=== PATIENT | female | born 1940 | race Caucasian/White ===

== ENCOUNTER → 2018-03-25 08:26 | Outpatient (CLI) | payer MEDICARE, OTHER, SELFPAY ==
[2018-03-25 10:35] LABS: Alanine Aminotransferase 25 IU/L (9-52); Aspartate Aminotransferase 22 IU/L (14-36); Cholesterol 149 mg/dL (140-199); HDL Cholesterol 59 mg/dL (40-60); LDL Cholesterol Calculated 69 mg/dL (<100); Triglycerides 104 mg/dL (35-150)
[2018-03-25 11:50] LABS: Free T4, Direct Thyroxine 1.05 ng/dL (0.78-2.19)
== END ==
PROVIDERS: PCP Internal Medicine; Visit Provider Internal Medicine
DX: E78.2 Mixed hyperlipidemia (principal); E03.9 Hypothyroidism, unspecified
CPT/HCPCS: 36415; 80061; 84439; 84443; 84450; 84460

== ENCOUNTER → 2018-05-11 12:46 | Outpatient (CLI) | payer MEDICARE, OTHER, SELFPAY ==
[2018-05-11 13:17] LABS: Add Manual Diff / Slide Review NO; Basophils Percent Auto 0.9 % (0-2); Eosinophils Percent Auto 6.1 % (2-4); Hematocrit 43.1 % (36-46); Hemoglobin 14.1 g/dL (12.0-16.0); Lymphocytes Percent Auto 35.9 % (25-40); Mean Corpuscular HGB Conc 32.8 % (30-36); Mean Corpuscular Hemoglobin 29.1 PG (26-34); Mean Corpuscular Volume 88.7 fL (80-100); Monocytes Percent Auto 8.5 % (3-14); Neutrophils Absolute Auto 3800 /uL (3000-5900); Neutrophils Percent Auto 48.6 % (50-75); Platelet Count 358 X10^3/uL (150-400); Red Blood Cell Count 4.86 X10^6/uL (4.0-5.2); Red Cell Distribution Width 13.4 % (11.6-14.8); White Blood Cell Count 7.8 X10^3/uL (4.5-11.0)
[2018-05-11 14:21] LABS: Alanine Aminotransferase 17 IU/L (9-52); Albumin 3.9 g/dL (3.5-5.0); Albumin Globulin Ratio 1.6 (1.0-2.8); Alkaline Phosphatase 53 U/L (38-126); Aspartate Aminotransferase 16 IU/L (14-36); Bilirubin Total 0.6 mg/dL (0.2-1.3); Blood Urea Nitrogen 16 mg/dL (7-17); Calcium 9.8 mg/dL (8.4-10.2); Carbon Dioxide 33 mmol/L (22-32); Chloride 97 mmol/L (98-107); Estimated Glomerular Filt Rate > 60.0 mL/min (>60); Globulin 2.5 g/dL (1.7-4.1); Glucose 108 mg/dL (80-110); HEMOLYSIS < 15 (0-50); Lipase 140 U/L (23-300); Potassium 4.5 mmol/L (3.4-5.1); Sodium 141 mmol/L (137-145); Total Protein 6.4 g/dL (6.3-8.2)
== END ==
PROVIDERS: PCP Internal Medicine; Visit Provider Internal Medicine
DX: R10.9 Unspecified abdominal pain (principal)
CPT/HCPCS: 36415; 80053; 83690; 85025

== ENCOUNTER → 2018-05-12 06:54 | Outpatient (CLI) | payer MEDICARE, OTHER, SELFPAY ==
--- NOTE | 2018-05-12 | DI.US.S_ITS ---
PROCEDURE: US ABDOMEN COMPLETE INDICATIONS: ABDOMINAL DISTENTION TECHNIQUE: Real-time scanning was performed of the abdominal and retroperitoneal organs, with image documentation. COMPARISON: None. FINDINGS: Liver: Liver is normal in size and homogeneous in echotexture. Gallbladder: The gallbladder appears normal. Biliary ducts: Intrahepatic bile ducts are non-dilated. Extrahepatic bile duct caliber measures 5.2 mm. Normal is 6-7 mm or less in diameter, or 10 mm or less post-cholecystectomy. Pancreas: Visualized portions of the pancreas are sonographically normal. Spleen: Not seen due to bowel gas Kidneys: Kidneys are normal in size and echotexture. Right kidney measures 11.7 cm long; left kidney measures 10.7 cm long. No hydronephrosis or nephrolithiasis. There is any echogenic solid structure measuring 8 x 9 mm at the inferior third of the right kidney cortex, likely an angiomyolipoma. Aorta: Visualized aorta is normal in caliber at less than 3 cm. Iliacs: Proximal common iliac arteries are normal in caliber at less than 2.5 cm. IVC: Intrahepatic inferior vena cava is patent. Miscellaneous: No free abdominal fluid. IMPRESSION: No source of abdominal discomfort and distention is. Nonvisualization of the spleen due to bowel gas. Incidental note of what appears to be a angiomyolipoma at the inferior cortex of the right kidney. If CT is obtained for current symptoms that area could be further assessed for presence of angiomyolipoma more accurately at that time. Dictated by: Sandip Hirsch M.D. on 05/12/2018 at 8:10 Approved by: Sandip Hirsch M.D. on 05/12/2018 at 8:12
== END ==
PROVIDERS: PCP Internal Medicine; Visit Provider Student in an Organized Health Care Education/Training Program
DX: R14.0 Abdominal distension (gaseous) (principal)
CPT/HCPCS: 76700

== ENCOUNTER → 2018-09-25 07:37 | Outpatient (CLI) | payer MEDICARE, OTHER, SELFPAY ==
[2018-09-25 08:49] LABS: Hemoglobin A1C% w Est Avg Glu 5.8 % (4.0-6.0)
[2018-09-25 08:55] LABS: Alanine Aminotransferase 26 IU/L (9-52); Aspartate Aminotransferase 21 IU/L (14-36); BUN Creatinine Ratio 28.3 (6-22); Blood Urea Nitrogen 17 mg/dL (7-17); Calcium 8.5 mg/dL (8.4-10.2); Carbon Dioxide 30 mmol/L (22-32); Chloride 102 mmol/L (98-107); Cholesterol 156 mg/dL (140-199); Estimated Glomerular Filt Rate > 60.0 mL/min (>60); Glucose 94 mg/dL (80-110); HDL Cholesterol 60 mg/dL (40-60); HEMOLYSIS < 15 (0-50); LDL Cholesterol Calculated 72 mg/dL (<100); Potassium 3.8 mmol/L (3.4-5.1); Sodium 142 mmol/L (137-145); Triglycerides 119 mg/dL (35-150)
[2018-09-25 09:54] LABS: Free T4, Direct Thyroxine 0.98 ng/dL (0.78-2.19)
== END ==
PROVIDERS: PCP Internal Medicine; Visit Provider Internal Medicine
DX: I10 Essential (primary) hypertension (principal); E03.9 Hypothyroidism, unspecified; E78.5 Hyperlipidemia, unspecified; E11.9 Type 2 diabetes mellitus without complications
CPT/HCPCS: 36415; 80048; 80061; 83036; 84439; 84443; 84450; 84460

== ENCOUNTER 2018-12-02 10:00 | Day surgery (SDC) | payer MEDICARE, OTHER, SELFPAY ==
--- NOTE | 2018-12-02 | PATH_ITS ---
[facility] Accession Number: [id number] . 01 Material submitted: . PART A: ASCENDING COLON POLYP PART B: ASCENDING COLON POLYP #2 PART C: TRANSVERSE POLYPS . 02 Diagnosis: A. Ascending Colon Polyp: Sessile serrated adenoma. . B. Ascending Colon Polyp #2: Multiple portions of sessile serrated adenoma. . C. Transverse Colon, Polyps, Biopsies: Portion of tubular adenoma x1; negative for high-grade dysplasia. Portion of sessile serrated adenoma x1. MRV/12/04/2018 . 02 Comment: . . 02 Electronically signed: . Joya Benitez MD, Pathologist NPI- [id number] . 01 Gross description: . Received three formalin-filled containers, each labeled with the patient's name: . A. In a container labeled ascending colon, are multiple less than 0.1 cm to 0.6 cm portions of tissue, which are filtered, wrapped, and entirely submitted in cassette A. B. In a container labeled ascending colon polyp #2, are multiple less than 0.1 cm to 0.5 cm portions of tissue and/or debris, which are filtered, wrapped, and entirely submitted in cassette B. C. In a container labeled transverse polyp, are two 0.4-0.5 cm portions of tissue, entirely submitted in cassette C. ([id number]) /FRR . 02 Pathologist provided ICD-10: K63.5 . 02 CPT . 821785, 353811, 681944 Performed at: 01 [facility] [address], [place], [place] [id number] MD Bakari Barrera MD Phone: [phone] Performed at: [facility] [address] [place] [id number] MD Karley Kathleen MD Phone: [phone]
--- NOTE | 2018-12-02 09:42 | P.HP_ITS ---
History of Present Illness Date Patient Seen: 12/02/18 Chief complaint: colonoscopy [id number] Narrative: 78-year-old female who is here for colon cancer screening. Prior colonoscopy done over 10 years ago with no evidence of polyps. There is a family history of colon polyps in her mother Patient History Medical History Hypertension (Acute) Seasonal allergies (Acute) Surgical History History of tonsillectomy and adenoidectomy (Acute) Social History household members: none Smoking Status: Never smoker alcohol intake: never substance use type: does not use additional social history: Social history and family history are otherwise noncontributory Family & Social History Tobacco & Substance use: Smoking Status Never smoker alcohol intake never Substance Use Type does not use Meds Allergies Allergy/AdvReac Type Severity Reaction Status Date / Time cat dander [CAT DANDER] Allergy Unknown Verified 03/06/18 21:54 pepper (genus Capsicum) Allergy Unknown Verified 03/06/18 21:54 [PEPPER] Exam Narrative Exam Narrative: General: Patient is overweight, not in apparent distress Cardiovascular: Regular rate and rhythm, no murmurs, rubs, or gallops; no evidence of edema; no palpable abdominal aortic aneurysm Gastrointestinal: Normoactive bowel sounds, soft, nontender, nondistended, no rebound tenderness, no hepatosplenomegaly, no evidence of hernia Assessment & Plan Plan: Assessment/Plan Narrative: 78-year-old female with a family history of colon polyps here for colon cancer screening Regarding the procedure(s), the risks and potential complications, benefits, and alternatives (including not doing the procedure) were discussed with the patient. The risks include but are not limited to bleeding, splenic injury, infection, perforation which may require surgical intervention, missed lesions, and adverse reactions to sedative medicines. After a question and answer period , the patient agreed to proceed with the procedure(s) and gives informed consent.
[2018-12-02 10:24] VITALS: BP 156/103; PULSE 61; RESP 15; TEMP 37; O2SAT 98; BMI 29.2
[2018-12-02] MEDS: SODIUM CHLORIDE 0.9% 1,000 ML 100 ML IV (11:02)
--- NOTE | 2018-12-02 11:03 | PM.OP.ENDO ---
Operative Date/Time/Diagnoses Date of procedure: 12/02/18 Procedure Notes Procedure in detail: Surgeon: Mayur Chang MD Procedure: Colonoscopy with polypectomy Preoperative diagnosis: Colon cancer screening, family history colon polyps Postoperative diagnosis: 2 ascending colon polyps status post piecemeal polypectomy; 2 transverse colon polyp status post polypectomy; grade 2 internal hemorrhoids Medications: Conscious sedation using 4 mg IV of Midazolam and 150mcg IV of Fentanyl Preanesthesia Assessment An H and P was performed/updated and the Px?s ASA class is 2. The procedure was discussed in detail with the patient. The potential risks and complications including infection, bleeding, missed lesions, perforation, need for surgery in case of perforation, prolonged hospital stay, and were explained. A brief question and answer period was allotted and once all questions were answered, informed consent was obtained. The patient was brought back to the procedure room and placed on standard monitoring. The patient?s vital signs were monitored continuously throughout the entire procedure. Prior to starting, a timeout was performed to confirm the patient?s identity, allergies, medications, and procedure. Procedure in detail The patient was placed in left lateral decubitus position and once adequate sedation was obtained a JOSE was performed. The digital rectal examination did not reveal any palpable lesions. The tip of the colonoscope was placed in the anal canal and advanced without difficulty all the way to the cecum which was identified by the appendiceal orifice and the ileocecal valve. Careful examination of all maya of the colon was performed with irrigation of any residual stool. In the ascending colon there was note of a 18 mm sessile polyp. Unfortunately the polyp was unable to be removed in 1 single piece, due to the tissue unable to be captured by the snare. Polypectomy was performed in a piecemeal fashion using saline injection, snare, and biopsy forceps. Unfortunately the polyp was unable to be removed in 1 single piece using a snare. Resection and retrieval was complete with minimal bleeding In the ascending colon there was note of a 2nd 16 mm sessile polyp. Unfortunately the polyp was again unable to be removed in 1 single piece, due to the tissue unable to be captured by the snare. Polypectomy was performed in a piecemeal fashion using saline injection, snare, and biopsy forceps. Unfortunately the polyp was unable to be removed in 1 single piece using a snare. Resection and retrieval was complete with minimal bleeding In the transverse colon there were 2 sessile polyps measuring 5 and 6 mm respectively. Polypectomy was performed by means of cold snare. Resection and retrieval were complete with minimal red bleeding Retroflexion was performed in the rectum which revealed grade 2 internal hemorrhoids The patient tolerated the procedure well and will be brought back to the recovery area to be discharged once criteria are met. The prep was judged to be good and adequate to identify polyps less than 5 mm. The withdrawal time was 43 min. The total physician intraservice time was 52 min. Complications There were no complications and estimated blood loss was minimal. Recommendations: Resume previous diet No ASA or NSAIDs for 2 weeks due to polypectomies Continue outPx medications Follow up pathology results Repeat colonoscopy in 3 months to reevaluate polypectomy site to ensure complete removal Please contact our office if you have problems with her hemorrhoids as we can evaluate you for possible hemorrhoid banding. An emergency contact number was given to the patient for any complications related to the procedure
[2018-12-02] MEDS: MIDAZOLAM 5 MG/5 ML VIAL IV (11:58)
[2018-12-02] MEDS: fentaNYL 250 MCG/5 ML INJ IV (11:58)
[2018-12-02 12:01] VITALS: BP 157/86; PULSE 63; RESP 18; TEMP 37.1; O2SAT 95
--- NOTE | 2018-12-02 12:05 | PM.DS.1 ---
History of Present Illness Chief complaint: colonoscopy [phone] [phone] Narrative: 78-year-old female who is here for colon cancer screening. Prior colonoscopy done over 10 years ago with no evidence of polyps. There is a family history of colon polyps in her mother Discharge Providers Primary care physician: Adriana Singh MD Discharge provider: Mayur Chang MD Discharge Date: 12/02/18 Exam Vital Signs (past 8 hours): - 12/02/18 10:24 12/02/18 12:01 Temperature 98.6 F 98.8 F Pulse Rate 61 63 Respiratory Rate 15 18 Blood Pressure 156/103 H 157/86 H Pulse Oximetry 98 95 Oxygen Delivery Method Room Air Narrative Exam Narrative: General: Patient is overweight, not in apparent distress Cardiovascular: Regular rate and rhythm, no murmurs, rubs, or gallops; no evidence of edema; no palpable abdominal aortic aneurysm Gastrointestinal: Normoactive bowel sounds, soft, nontender, nondistended, no rebound tenderness, no hepatosplenomegaly, no evidence of hernia Discharge Plan Discharge Plan Patient Disposition: Home Discharge Med Rec/Prescriptions Discharge Orders: Discharge (Order); Ordered 12/02/18 Ordered By: Mayur Chang Provider Discharge Instructions Diet: Diet as Tolerated Visit Report/Discharge Packet Stand Alone Forms: Colonoscopy Result: [facility], Surgery Discharge Discharge Data Primary Care Provider: Adriana Singh Attending Provider: Mayur Chang
[2018-12-02 12:10] VITALS: BP 142/82; PULSE 63; RESP 18; O2SAT 94
== END 2018-12-02 12:23 | disposition home or self-care (01) ==
PROVIDERS: PCP Internal Medicine; Visit Provider Internal Medicine Gastroenterology
PROC: 0DJD8ZZ Inspection of Lower Intestinal Tract, Via Natural or Artificial Opening Endoscopic (ICD-10-PCS; CPT 45378; principal; 2018-12-02 11:30)
DX: Z12.11 Encounter for screening for malignant neoplasm of colon (principal); Z80.0 Family history of malignant neoplasm of digestive organs; K64.1 Second degree hemorrhoids; K63.5 Polyp of colon
CPT/HCPCS: 45385; 88305; J2250; J3010

== ENCOUNTER → 2019-02-05 07:53 | Outpatient (CLI) | payer MEDICARE, OTHER, SELFPAY ==
--- NOTE | 2019-02-05 | DI.MG.S_ITS ---
BILATERAL DIGITAL SCREENING MAMMOGRAM 3D/2D WITH CAD: 02/05/2019 CLINICAL: Routine screening. Comparison is made to exams dated: 12/08/2017 mammogram, 12/25/2012 mammogram - [facility], and 12/20/2008 mammogram - [facility]. There are scattered fibroglandular elements in both breasts. Current study was also evaluated with a Computer Aided Detection (CAD) system. There are benign calcifications in both breasts. No significant masses, calcifications, or other findings are seen in either breast. There has been no significant interval change. IMPRESSION: There is no mammographic evidence of malignancy. A 1 year screening mammogram is recommended. This exam was interpreted at Station ID: [id number]. NOTE: For mammograms, a report in lay terms will be sent to the patient. Approximately 15% of breast malignancies will not be visualized mammographically. In the management of a palpable breast mass, a negative mammogram must not discourage biopsy of a clinically suspicious lesion. Electronically Signed By: Vasquez torre/peg:02/05/2019 12:16:46 letter sent: Normal Exam ACR BI-RADS Category 2: Benign Finding(s) 3342F
== END ==
PROVIDERS: PCP Internal Medicine; Visit Provider Internal Medicine
DX: Z12.31 Encounter for screening mammogram for malignant neoplasm of breast (principal)
CPT/HCPCS: 77063; 77067

== ENCOUNTER 2019-02-17 07:52 | Day surgery (SDC) | payer MEDICARE, OTHER, SELFPAY ==
[2019-02-17] VITALS (7 sets, daily range): BP systolic 123–158; BP diastolic 71–93; PULSE 54–77; RESP 12–23; TEMP 36.2–36.6; O2SAT 91–97; BMI 29.0
[2019-02-17] MEDS: SODIUM CHLORIDE 0.9% 1,000 ML 70 ML IV (08:33)
--- NOTE | 2019-02-17 08:36 | PM.HP.1 ---
History of Present Illness Date Patient Seen: 02/17/19 Chief complaint: [id number] Narrative: 78-year-old female who I had seen 02/16/2019 due to intermittent solid food esophageal dysphagia. Please refer to my note for further details Patient History Medical History (Updated 03/21/18 @ 00:01 by ) Hypertension (Acute) Seasonal allergies (Acute) Surgical History (Updated 03/06/18 @ 22:27 by Reyes Cotter MD) History of tonsillectomy and adenoidectomy (Acute) Social History (Updated 03/06/18 @ 22:28 by Reyes Cotter MD) household members: none Smoking Status: Never smoker alcohol intake: never substance use type: does not use additional social history: Social history and family history are otherwise noncontributory Family & Social History Social History: household members none Tobacco & Substance use: Smoking Status Never smoker alcohol intake never Substance Use Type does not use Meds Home Medications Medication Instructions Recorded Confirmed Type fluticasone propion-salmeterol 1 puff INHALATION BID 02/17/19 02/17/19 History [Advair Diskus] glipizide 5 mg PO DAILY 02/17/19 02/17/19 History hydralazine 25 mg PO BID 02/17/19 02/17/19 History levothyroxine 50 mcg PO DAILY 02/17/19 02/17/19 History metformin 500 mg PO QPM 02/17/19 02/17/19 History tramadol 50 mg PO DAILY 02/17/19 02/17/19 History Allergies Allergy/AdvReac Type Severity Reaction Status Date / Time cat dander [CAT DANDER] Allergy Unknown Verified 02/17/19 08:26 pepper (genus Capsicum) Allergy Unknown Verified 03/06/18 21:54 [PEPPER] Exam Vital Signs (past 8 hours): - 02/17/19 08:16 Temperature 97.8 F Pulse Rate 58 L Respiratory Rate 12 Blood Pressure 145/93 H Pulse Oximetry 97 Oxygen Delivery Method Room Air Narrative Exam Narrative: General: Patient is overweight, not in apparent distress Cardiovascular: Regular rate and rhythm, no murmurs, rubs, or gallops; no evidence of edema; no palpable abdominal aortic aneurysm Gastrointestinal: Normoactive bowel sounds, soft, nontender, nondistended, no rebound tenderness, no hepatosplenomegaly, no evidence of hernia Assessment & Plan Assessment & Plan narrative: 78-year-old female with a history of intermittent esophageal dysphagia to solids here for EGD and possible dilation Regarding the procedure(s), the risks and potential complications, benefits, and alternatives (including not doing the procedure) were discussed with the patient. The risks include but are not limited to bleeding, splenic injury, infection, perforation which may require surgical intervention, missed lesions, and adverse reactions to sedative medicines. After a question and answer period, the patient agreed to proceed with the procedure(s) and gives informed consent.
[2019-02-17] MEDS: LIDOCAINE 4% SOLN 50 ML 20 ML TOP (09:25)
[2019-02-17] MEDS: TETRACAINE/BENZOCAINE/BUTAMBEN (CETACAINE) BOTTLE 1 SPRAY TOP (09:25)
[2019-02-17] MEDS: fentaNYL 250 MCG/5 ML INJ IV (09:26)
[2019-02-17] MEDS: MIDAZOLAM 5 MG/5 ML VIAL IV (09:27)
--- NOTE | 2019-02-17 09:38 | PM.OP.ENDO ---
Operative Date/Time/Diagnoses Date of procedure: 02/17/19 Procedure Notes Procedure in detail: Surgeon: Mayur Chang MD Procedure: Esophagogastroduodenoscopy with balloon dilation Preoperative diagnosis: Esophageal dysphagia Postoperative diagnosis: Schatzki ring status post dilation, otherwise normal EGD Medications: Conscious sedation using 2 mg IV of Midazolam and 100 mcg IV of Fentanyl Preanesthesia Assessment An H and P was performed/updated and the Px?s ASA class is 2. The procedure was discussed in detail with the patient. The potential risks and complications including infection, bleeding, missed lesions, perforation, need for surgery in case of perforation, prolonged hospital stay, and were explained. A brief question and answer period was allotted and once all questions were answered, informed consent was obtained. The patient was brought back to the procedure room and placed on standard monitoring. The patient?s vital signs were monitored continuously throughout the entire procedure. Prior to starting, a timeout was performed to confirm the patient?s identity, allergies, medications, and procedure. Procedure in detail The patient was placed in left lateral decubitus position and a bite block was inserted. The tip of the upper endoscope was placed into the mouth and advanced without difficulty under direct visualization into the esophagus. Esophagus: The esophageal mucosa appeared normal. at the GE junction there was note of a mild Schatzki ring. This was dilated using a CRE balloon starting at 15 mm and to a maximum of 18 mm. Post dilation inspection revealed mucosal tearing in the region of the Schatzki ring. There was minimal bleeding Stomach: The examined stomach appeared normal Duodenum: The examined duodenum to the 2nd portion appeared normal The patient tolerated the procedure well and will be brought back to the recovery area to be discharged once criteria are met. The total physician intraservice time was 12 minutes. Complications There were no complications and estimated blood loss was minimal. Recommendations: Clear liquid diet in recovery and advance to previous diet if no issues with clears Continue outPx medications Follow up pathology results Office follow up with me in 2 months (patient to call and schedule) An emergency contact number was given to the patient for any complications related to the procedure
--- NOTE | 2019-02-17 09:43 | P.DS_ITS ---
History of Present Illness Chief complaint: [id number] Narrative: 78-year-old female who I had seen 02/16/2019 due to intermittent solid food esophageal dysphagia. Please refer to my note for further details Discharge Providers Discharge Date: 02/17/19 Primary care physician: Adriana Singh MD Discharge provider: Mayur Chang MD Exam Vital Signs (past 8 hours): - 02/17/19 08:16 Temperature 97.8 F Pulse Rate 58 L Respiratory Rate 12 Blood Pressure 145/93 H Pulse Oximetry 97 Oxygen Delivery Method Room Air Narrative Exam Narrative: General: Patient is overweight, not in apparent distress Cardiovascular: Regular rate and rhythm, no murmurs, rubs, or gallops; no e vidence of edema; no palpable abdominal aortic aneurysm Gastrointestinal: Normoactive bowel sounds, soft, nontender, nondistended, no rebound tenderness, no hepatosplenomegaly, no evidence of hernia Discharge Plan Discharge Med Rec/Prescriptions Prescriptions: Continued hydralazine 25 mg Tablet 25 mg PO BID RF: 0 levothyroxine 50 mcg Tablet 50 mcg PO DAILY RF: 0 fluticasone propion-salmeterol [Advair Diskus] 100-50 mcg/dose Blister With Device 1 puff INHALATION BID RF: 0 metformin 500 mg Tablet Extended Release 24 Hr 500 mg PO QPM RF: 0 tramadol 50 mg Tablet 50 mg PO DAILY RF: 0 glipizide 5 mg Tablet 5 mg PO DAILY RF: 0 Follow up/Referrals: Adriana Singh MD [Primary Care Provider] - Discharge Orders: Discharge (Order); Ordered 02/17/19 Ordered By: Mayur Chang Provider Discharge Instructions Diet: Clear Liquid Visit Report/Discharge Packet Stand Alone Forms: EGD Result: [facility] Discharge Data Primary Care Provider: Adriana Singh Attending Provider: Mayur Chang
== END 2019-02-17 10:20 ==
PROVIDERS: PCP Internal Medicine; Visit Provider Internal Medicine Gastroenterology
PROC: 0DJ08ZZ Inspection of Upper Intestinal Tract, Via Natural or Artificial Opening Endoscopic (ICD-10-PCS; CPT 43235; principal; 2019-02-17 09:30)
DX: K22.2 Esophageal obstruction (principal); I10 Essential (primary) hypertension
CPT/HCPCS: 43249; J2250; J3010

== ENCOUNTER 2019-04-07 08:19 | Day surgery (SDC) | payer MEDICARE, OTHER, SELFPAY ==
--- NOTE | 2019-04-07 | PATH_ITS ---
[facility] Accession Number: [id number] . 01 Material submitted: . PART A: body - PRIOR POLYPECTOMY SITE, RESIDUAL POLYP PART B: colon - TRANSVERSE POLYP . 02 Diagnosis: A. Prior Polypectomy Site, Biopsy: Serrated lesion, favor sessile serrated adenoma in five of multiple fragments. . B. Transverse Colon, Polyp, Biopsy: Sessile serrated adenoma. MRV/04/08/2019 . 02 Electronically signed: . Karley Kathleen MD, Pathologist NPI- [id number] . 01 Gross description: . Part A: PRIOR POLYPECTOMY SITE, RESIDUAL POLYP: Received in formalin are multiple fragment(s) of steiner, soft tissue measuring 0.1 x 0.1 x 0.1 cm to 0.3 x 0.2 x 0.2 cm which is entirely submitted and submitted entirely in 1 cassette(s) Part B: TRANSVERSE POLYP: Received in formalin is 1 fragment(s) of steiner, soft tissue measuring 0.3 x 0.3 x 0.3 cm which is entirely submitted and submitted entirely in 1 cassette(s) /DMC /DMC . 02 Pathologist provided ICD-10: D12.2, D12.3 . 02 CPT . 112339, 658068 Performed at: 01 [facility] [address], [place], [place] [id number] MD Bakari Barrera MD Phone: [phone] Performed at: 02 [facility] [address] [place], [place] [id number] MD Karley Kathleen MD Phone: [phone]
--- NOTE | 2019-04-07 08:11 | PM.HP.1 ---
History of Present Illness Date Patient Seen: 04/07/19 Chief complaint: [id number] Narrative: 78-year-old female who is here for colon polyp surveillance. She underwent a colonoscopy with me 12/02/2018 with piecemeal removal of 2 ascending colon polyps. I had last seen the patient at our office on 02/16/2019 for esophageal dysphagia. She underwent an EGD with dilation of a Schatzki ring on 02/17/2019 Patient History Medical History (Updated 03/21/18 @ 00:01 by ) Hypertension (Acute) Seasonal allergies (Acute) Surgical History (Updated 03/06/18 @ 22:27 by Reyes Cotter MD) History of tonsillectomy and adenoidectomy (Acute) Social History (Updated 03/06/18 @ 22:28 by Reyes Cotter MD) household members: none Smoking Status: Never smoker alcohol intake: never substance use type: does not use additional social history: Social history and family history are otherwise noncontributory Family & Social History Social History: household members none Tobacco & Substance use: Smoking Status Never smoker alcohol intake never Substance Use Type does not use Meds Home Medications Medication Instructions Recorded Confirmed Type fluticasone propion-salmeterol 1 puff INHALATION BID 02/17/19 04/07/19 History [Advair Diskus] glipizide 5 mg PO DAILY 02/17/19 04/07/19 History hydralazine 25 mg PO BID 02/17/19 04/07/19 History levothyroxine 50 mcg PO DAILY 02/17/19 04/07/19 History metformin 500 mg PO TID 02/17/19 04/07/19 History tramadol 100 mg PO DAILY 02/17/19 04/07/19 History acetaminophen [Tylenol Extra 1,000 mg PO DAILY 04/07/19 04/07/19 History Strength] furosemide 10 mg PO DAILY PRN 04/07/19 04/07/19 History gabapentin 200 mg PO BEDTIME 04/07/19 04/07/19 History loratadine 10 mg PO DAILY 04/07/19 04/07/19 History montelukast 10 mg PO QPM 04/07/19 04/07/19 History rosuvastatin 5 mg PO Q OTHER DAY 04/07/19 04/07/19 History salmeterol 1 inh INHALATION Q12H 04/07/19 04/07/19 History Allergies Allergy/AdvReac Type Severity Reaction Status Date / Time No Known Drug Allergies Allergy Verified 04/07/19 08:33 Exam Narrative Exam Narrative: General: Patient is overweight, not in apparent distress Cardiovascular: Regular rate and rhythm, no murmurs, rubs, or gallops; no evidence of edema; no palpable abdominal aortic aneurysm Gastrointestinal: Normoactive bowel sounds, soft, nontender, nondistended, no rebound tenderness, no hepatosplenomegaly, no evidence of hernia Assessment & Plan Assessment & Plan narrative: 78-year-old female here for surveillance colonoscopy after having ascending colon piecemeal polypectomy done during her last colonoscopy in November 2018. Regarding the procedure(s), the risks and potential complications, benefits, and alternatives (including not doing the procedure) were discussed with the patient. The risks include but are not limited to bleeding, splenic injury, infection, perforation which may require surgical intervention, missed lesions, and adverse reactions to sedative medicines. After a question and answer period, the patient agreed to proceed with the procedure(s) and gives informed consent.
[2019-04-07 08:41] VITALS: BMI 28.0
[2019-04-07 08:46] VITALS: BP 138/89; PULSE 82; RESP 15; TEMP 36.6; O2SAT 94
[2019-04-07] MEDS: SODIUM CHLORIDE 0.9% 1,000 ML 70 ML IV (08:54)
--- NOTE | 2019-04-07 09:30 | PM.OP.ENDO ---
Operative Date/Time/Diagnoses Date of procedure: 04/07/19 Procedure Notes Procedure in detail: Surgeon: Mayur Chang MD Procedure: Colonoscopy with polypectomy Preoperative diagnosis: Polypectomy site surveillance after piecemeal polypectomy November 2018 Postoperative diagnosis: Residual polyp at prior polypectomy site status post polypectomy, transverse polyp status post polypectomy, grade 2 internal hemorrhoids Medications: Conscious sedation using 4 mg IV of Midazolam and 125 mcg IV of Fentanyl Preanesthesia Assessment An H and P was performed/updated and the Px?s ASA class is 2. The procedure was discussed in detail with the patient. The potential risks and complications including infection, bleeding, missed lesions, perforation, need for surgery in case of perforation, prolonged hospital stay, and were explained. A brief question and answer period was allotted and once all questions were answered, informed consent was obtained. The patient was brought back to the procedure room and placed on standard monitoring. The patient?s vital signs were monitored continuously throughout the entire procedure. Prior to starting, a timeout was performed to confirm the patient?s identity, allergies, medications, and procedure. Procedure in detail The patient was placed in left lateral decubitus position and once adequate sedation was obtained a JOSE was performed. The digital rectal examination did not reveal any palpable lesions. The tip of the colonoscope was placed in the anal canal and advanced without difficulty all the way to the cecum which was identified by the appendiceal orifice and the ileocecal valve. Careful examination of all maya of the colon was performed with irrigation of any residual stool. In the proximal ascending colon, two polypectomy scars were seen. One of the polypectomy sites revealed possible residual polypoid areas and these were removed by means of cold Jumbo forceps with minimal bleeding. In the transverse colon, a 3 mm sessile polyp was seen and this was removed by means of cold Jumbo forceps. Resection and retrieval were complete with minimal bleeding Retroflexion was performed in the rectum which revealed grade 2 internal hemorrhoids The patient tolerated the procedure well and will be brought back to the recovery area to be discharged once criteria are met. The prep was judged to be good/excellent and adequate to identify polyps less than 5 mm. The withdrawal time was 13 minutes. The total physician intraservice time was 21 minutes. Complications There were no complications and estimated blood loss was minimal. Recommendations: Resume previous diet Continue outPx medications Follow up pathology results Repeat colonoscopy in 3 years An emergency contact number was given to the patient for any complications related to the procedure
[2019-04-07] MEDS: fentaNYL 250 MCG/5 ML INJ IV (09:31)
[2019-04-07] MEDS: MIDAZOLAM 5 MG/5 ML VIAL IV (09:32)
[2019-04-07 09:57] VITALS: BP 158/80; PULSE 65; RESP 18; TEMP 36.2; O2SAT 93
[2019-04-07 10:02] VITALS: BP 164/82; PULSE 67; RESP 16; O2SAT 96
[2019-04-07 10:06] VITALS: BP 149/88; PULSE 66; RESP 16; TEMP 36.6; O2SAT 94
[2019-04-07 10:14] VITALS: BP 141/81; PULSE 61; RESP 15; TEMP 36.4; O2SAT 95
== END 2019-04-07 10:37 | disposition home or self-care (01) ==
PROVIDERS: PCP Internal Medicine; Visit Provider Internal Medicine Gastroenterology
PROC: 0DJD8ZZ Inspection of Lower Intestinal Tract, Via Natural or Artificial Opening Endoscopic (ICD-10-PCS; CPT 45378; principal; 2019-04-07 09:30)
DX: Z86.010 Personal history of colon polyps (principal); I10 Essential (primary) hypertension; K64.1 Second degree hemorrhoids; D12.2 Benign neoplasm of ascending colon; D12.3 Benign neoplasm of transverse colon
CPT/HCPCS: 45380; 88305; J2250; J3010

== ENCOUNTER → 2019-08-18 08:09 | Outpatient (CLI) | payer MEDICARE, OTHER, SELFPAY ==
[2019-08-18 09:54] LABS: Alanine Aminotransferase 13 IU/L (9-52); Aspartate Aminotransferase 25 IU/L (14-36); Blood Urea Nitrogen 16 mg/dL (7-17); Calcium 8.7 mg/dL (8.4-10.2); Carbon Dioxide 30 mmol/L (22-32); Chloride 103 mmol/L (98-107); Cholesterol 159 mg/dL (140-199); Estimated Glomerular Filt Rate > 60.0 mL/min (>60); Glucose 88 mg/dL (80-110); HDL Cholesterol 60 mg/dL (40-60); HEMOLYSIS < 15 (0-50); LDL Cholesterol Calculated 79 mg/dL (<100); Potassium 3.9 mmol/L (3.4-5.1); Sodium 138 mmol/L (137-145); Triglycerides 102 mg/dL (35-150)
[2019-08-19 15:14] LABS: Hemoglobin A1C% w Est Avg Glu 5.3 % (4.0-6.0)
[2019-08-19 16:35] LABS: Free T4, Direct Thyroxine 1.09 ng/dL (0.78-2.19)
== END ==
PROVIDERS: PCP Internal Medicine; Visit Provider Internal Medicine
DX: E11.9 Type 2 diabetes mellitus without complications (principal); E78.2 Mixed hyperlipidemia; E03.9 Hypothyroidism, unspecified
CPT/HCPCS: 36415; 80048; 80061; 83036; 84439; 84443; 84450; 84460

== ENCOUNTER 2019-10-08 12:15 | Outpatient (RCR) | payer MEDICARE, OTHER, SELFPAY ==
--- NOTE | 2019-09-01 15:43 | PT.OIE ---
Current Diagnoses Benign paroxysmal vertigo, unspecified ear (09/01/19) Past Medical History (Last Updated 03/06/18 @ 22:27 by Reyes Cotter MD) Hypertension (Acute) Seasonal allergies (Acute) Past Surgical History (Last Updated 03/06/18 @ 22:27 by Reyes Cotter MD) History of tonsillectomy and adenoidectomy (Acute) Visit Care Team Role Provider Type Adriana Singh MD Attending Provider Physician Primary Care Provider Specialty: Internal Medicine Address: [address] [place] [address], [facility] Email: [email or web address] Physical Therapy Initial Evaluation PT-OP-A Visit Information Start: 09/01/19 09:01 Freq: Status: Active Protocol: Document 09/01/19 09:01 MB (Rec: 09/01/19 09:43 MB [id number]) Out-Patient Physical Therapy Visit Information Visit Information Visit Type Initial Evaluation Visit Note Pt has Medicare, unlimited visits Visit Start Time 09:01 Visit Stop Time 09:45 Total Visit Minutes 44 Visit Number 1 Number of CLIENT PROGRAM MANAGER Visits 0 PT-OP-B Current Condition Start: 09/01/19 09:01 Freq: Status: Active Protocol: Document 09/01/19 09:01 MB (Rec: 09/01/19 09:43 MB [id number]) Current Condition History of Current Condition Onset Date About a year Current Complaints Recent severe episode of dizziness when using computer History of Current Condition Pt reports dizziness for about a year when she gets in and out of bed and when she stands up quickly. Pt reports history of spinal and fibromyalgia pain that she does not feel is related to her dizziness. She does occ report neck pain but mostly near her shoulders. Pt denies change in vision, hearing ( wears hearing aides), recent chiropracter care (last treatment on neck in college), recent falls (history of acrobatic accident when younger), numbness and tingling in hands. She reports weakness d/t arthritis. Pt has asthma. Pt takes BP medication, thyroid medication and Tramadol for fibromyalgia pain. Pt is diabetic and DM is controlled with Metformin and another medication. She takes her blood sugar often. Pt reports history of motion sickness. Prior Treatments and Tests She went to the doctor and the doctor turned her head and helped lie her back and she felt spinning dizziness. The doctor turned her head right and left and she felt better after the procedure. Treatment Goals Patient/Caregiver Goals To decrease dizziness PT-OP-C Subjective Start: 09/01/19 09:01 Freq: Status: Active Protocol: Document 09/01/19 09:01 MB (Rec: 09/01/19 09:47 MB [id number]) OP-PT Subjective Patient Comments Patient Comments See history of current condition above. Pt reports light-headedness when getting up quickly and history of vertigo when rolling to the left to get OOB or when moving to side lying to the left. PT-OP-K Range of Motion Start: 09/01/19 09:01 Freq: Status: Active Protocol: Document 09/01/19 09:01 MB (Rec: 09/01/19 09:49 MB [id number]) Cervical Spine Range of Motion Cervical Spine Active Testing Position Supine Rotation Left 60 Rotation Right 45 Comments Quick cervical rotation screen in hook lying as PT triaging assessment tasks and need to check out orthostatic hypotension symptoms, needing pt supine for this PT-OP-M Strength Start: 09/01/19 09:01 Freq: Status: Active Protocol: Document 09/01/19 09:01 MB (Rec: 09/01/19 12:17 MB [id number]) Shoulder Strength Shoulder Manual Muscle Testing Left Flexion 4 Good Right Flexion 5 Normal Comments Supine Elbow/Forearm Strength Elbow and Forearm Manual Muscle Testing Left Flexion (C6) 5 Normal Extension (C7) 5 Normal Right Flexion (C6) 5 Normal Extension (C7) 5 Normal PT-OP-O Vestibular Start: 09/01/19 09:01 Freq: Status: Active Protocol: Document 09/01/19 09:01 MB (Rec: 09/01/19 12:20 MB [id number]) Vestibular Assessment Visual Testing Smooth Pursuits Horizontal . Comments Vestibular Comments No spontaneous nystagmus. B [place]-Hallpike and Roll Test negative for nystagmus. She had very minimal dizziness with R [place]-Hallpike so moved through treatment positions to get to sitting. Log roll d/t pt with fibromyalgia multi- joint pain Orthostatic hypotension assessment: right UE with BP & HR: supine 168/86, 66; machine does not read immediately upon standing and pt reports light-headedness. standing 30 sec: 161/95, 85; standing 1' 153/95, 86 Balance: Romberg 30 sec; pt has to hold onto PT when attempted EC PT-OP-T Assessment and Plan Start: 09/01/19 09:01 Freq: Status: Active Protocol: Document 09/01/19 09:01 MB (Rec: 09/01/19 15:42 MB [id number]) Physical Therapy Assessment Impairments Impairments Balance,Coordination, Functional Activities, Functional Mobility,Gait,Pain, Posture,ROM,Soft Tissue Mobility,Strength,Vestibular, Visual Motor Goals 4 Supervisor Residential Goal (LTG) Pt will deny falls for 2 months by 11/01/19. LTG Duration 8 weeks 3 Supervisor Residential Goal (LTG) Pt will perform HEP with I including VOR, cervical, postural, strengthening and balance exercises by 11/01/19. LTG Duration 8 weeks 2 Half-Way Goal (LTG) Pt will perform WNLs on DGI to decrease fall risk by . LTG Duration 8 weeks 1 Supervisor Residential Goal (LTG) Pt will report a 50% improvement in dizziness by . LTG Duration 8 weeks Assessment Summary Assessment Pt is a 78 y/o female presenting with dizziness that has improved since her PCP performed what sounds like an canalith repositiong maneuver 1.5-2 weeks ago. She has sxs of light-headedness with getting up quickly and BP cuff did not read BP quickly enough to determine orthostasis this date. It took 2-3 trials. Pt presents with LUE weakness, decreased cervical ROM and decreased balance. She will benefit from PT for balance, VOR, postural , cervical, core and shoulder and intrascapular training. Barriers include multiple medical co-morbidities and polypharmacy. Physical Therapy Plan Frequency and Duration Frequency of Treatment 2x/Week Duration of Treatment 8 weeks Plan of Care Start Date 09/01/19 Plan of Care End Date 11/01/19 Therapeutic Interventions Therapeutic Interventions Balance Training,Canalithic Repositioning,Coordination Training,Gait Training,Home Exercise Program,Manual Therapy,Neuromuscular Re- education,Patient/Caregiver Education,Self-Care/Home Management,Soft Tissue Mobilization,Taping, Therapeutic Activities, Therapeutic Exercises, Vestibular Rehabilitation Modalities Cold Pack/Ice Massage,Electric Stimulation,Hot Packs, Ultrasound Next Visit Focus/Plan Next Note Type Treatment Note Next Visit Plan Consider assessing VOR, starting STM, cervical, postural exercises
--- NOTE | 2019-09-01 15:43 | PT.OPPOC ---
Current Diagnoses Benign paroxysmal vertigo, unspecified ear (09/01/19) Visit Care Team Role Provider Type Adriana Singh MD Attending Provider Physician Primary Care Provider Specialty: Internal Medicine Address: [address] [place] [address], [id number] Email: [email or web address] Plan Of Care PT-OP-T Assessment and Plan Start: 09/01/19 09:01 Freq: Status: Active Protocol: Document 09/01/19 09:01 MB (Rec: 09/01/19 15:42 MB [id number]) Physical Therapy Assessment Impairments Impairments Balance,Coordination, Functional Activities, Functional Mobility,Gait,Pain, Posture,ROM,Soft Tissue Mobility,Strength,Vestibular, Visual Motor Goals 4 Residential Goal (LTG) Pt will deny falls for 2 months by 11/01/19. LTG Duration 8 weeks 3 Residential Goal (LTG) Pt will perform HEP with I including VOR, cervical, postural, strengthening and balance exercises by 11/01/19. LTG Duration 8 weeks 2 Shoe Handler Goal (LTG) Pt will perform WNLs on DGI to decrease fall risk by . LTG Duration 8 weeks 1 Residential Goal (LTG) Pt will report a 50% improvement in dizziness by . LTG Duration 8 weeks Assessment Summary Assessment Pt is a 78 y/o female presenting with dizziness that has improved since her PCP performed what sounds like an canalith repositiong maneuver 1.5-2 weeks ago. She has sxs of light-headedness with getting up quickly and BP cuff did not read BP quickly enough to determine orthostasis this date. It took 2-3 trials. Pt presents with LUE weakness, decreased cervical ROM and decreased balance. She will benefit from PT for balance, VOR, postural , cervical, core and shoulder and intrascapular training. Barriers include multiple medical co-morbidities and polypharmacy. Physical Therapy Plan Frequency and Duration Frequency of Treatment 2x/Week Duration of Treatment 8 weeks Plan of Care Start Date 09/01/19 Plan of Care End Date 11/01/19 Therapeutic Interventions Therapeutic Interventions Balance Training,Canalithic Repositioning,Coordination Training,Gait Training,Home Exercise Program,Manual Therapy,Neuromuscular Re- education,Patient/Caregiver Education,Self-Care/Home Management,Soft Tissue Mobilization,Taping, Therapeutic Activities, Therapeutic Exercises, Vestibular Rehabilitation Modalities Cold Pack/Ice Massage,Electric Stimulation,Hot Packs, Ultrasound Next Visit Focus/Plan Next Note Type Treatment Note Next Visit Plan Consider assessing VOR, starting STM, cervical, postural exercises Plan of Care Dates Plan of Care Start Date 09/01/19 Plan of Care End Date 11/01/19
--- NOTE | 2019-09-07 08:15 | PT.OTN ---
Current Diagnoses Benign paroxysmal vertigo, unspecified ear (09/07/19) Physical Therapy Treatment Note PT-OP-A Visit Information Start: 09/01/19 09:01 Freq: Status: Active Protocol: Document 09/07/19 07:34 MB (Rec: 09/07/19 08:14 MB [id number]) Out-Patient Physical Therapy Visit Information Visit Information Visit Type Treatment Note Visit Note Pt has Medicare, unlimited visits Visit Start Time 07:34 Visit Stop Time 08:12 Total Visit Minutes 38 Visit Number 2 PT-OP-B Current Condition Start: 09/01/19 09:01 Freq: Status: Active Protocol: Document 09/01/19 09:01 MB (Rec: 09/01/19 09:43 MB [id number]) Current Condition History of Current Condition Onset Date About a year Current Complaints Recent severe episode of dizziness when using computer History of Current Condition Pt reports dizziness for about a year when she gets in and out of bed and when she stands up quickly. Pt reports history of spinal and fibromyalgia pain that she does not feel is related to her dizziness. She does occ report neck pain but mostly near her shoulders. Pt denies change in vision, hearing ( wears hearing aides), recent chiropracter care (last treatment on neck in college), recent falls (history of acrobatic accident when younger), numbness and tingling in hands. She reports weakness d/t arthritis. Pt has asthma. Pt takes BP medication, thyroid medication and Tramadol for fibromyalgia pain. Pt is diabetic and DM is controlled with Metformin and another medication. She takes her blood sugar often. Pt reports history of motion sickness. Prior Treatments and Tests She went to the doctor and the doctor turned her head and helped lie her back and she felt spinning dizziness. The doctor turned her head right and left and she felt better after the procedure. Treatment Goals Patient/Caregiver Goals To decrease dizziness PT-OP-C Subjective Start: 09/01/19 09:01 Freq: Status: Active Protocol: Document 09/07/19 07:34 MB (Rec: 09/07/19 08:14 MB [id number]) OP-PT Subjective Patient Comments Patient Comments Pt states that she feels about the same. She feels light- headed when standing up quickly from bent position. She helped her grand-daughter clean her room and felt light- headed after bending over. She has some discomfort between her shoulder blades. She has a meeting after PT. PT-OP-K Range of Motion Start: 09/01/19 09:01 Freq: Status: Active Protocol: Document 09/01/19 09:01 MB (Rec: 09/01/19 09:49 MB [id number]) Cervical Spine Range of Motion Cervical Spine Active Testing Position Supine Rotation Left 60 Rotation Right 45 Comments Quick cervical rotation screen in hook lying as PT triaging assessment tasks and need to check out orthostatic hypotension symptoms, needing pt supine for this PT-OP-M Strength Start: 09/01/19 09:01 Freq: Status: Active Protocol: Document 09/01/19 09:01 MB (Rec: 09/01/19 12:17 MB [id number]) Shoulder Strength Shoulder Manual Muscle Testing Left Flexion 4 Good Right Flexion 5 Normal Comments Supine Elbow/Forearm Strength Elbow and Forearm Manual Muscle Testing Left Flexion (C6) 5 Normal Extension (C7) 5 Normal Right Flexion (C6) 5 Normal Extension (C7) 5 Normal PT-OP-O Vestibular Start: 09/01/19 09:01 Freq: Status: Active Protocol: Document 09/01/19 09:01 MB (Rec: 09/01/19 12:20 MB [id number]) Vestibular Assessment Visual Testing Smooth Pursuits Horizontal . Comments Vestibular Comments No spontaneous nystagmus. B [place]-Hallpike and Roll Test negative for nystagmus. She had very minimal dizziness with R [place]-Hallpike so moved through treatment positions to get to sitting. Log roll d/t pt with fibromyalgia multi- joint pain Orthostatic hypotension assessment: right UE with BP & HR: supine 168/86, 66; machine does not read immediately upon standing and pt reports light-headedness. standing 30 sec: 161/95, 85; standing 1' 153/95, 86 Balance: Romberg 30 sec; pt has to hold onto PT when attempted EC PT-OP-Q Treatments Start: 09/01/19 09:01 Freq: Status: Active Protocol: Document 09/07/19 07:34 MB (Rec: 09/07/19 08:14 MB [id number]) Therapeutic Exercises Standing Exercises Scapular retraction and chin tuck Comments Standing against wall or sitting, ed to get up often at home Racquet ball massage and cervical ROM Comments Racquet ball massage and cervical ROM against wall PT-OP-T Assessment and Plan Start: 09/01/19 09:01 Freq: Status: Active Protocol: Document 09/07/19 07:34 MB (Rec: 09/07/19 08:14 MB [id number]) Physical Therapy Assessment Goals 4 Bulk Mail Clerk Goal (LTG) Pt will deny falls for 2 months by 11/01/19. LTG Duration 8 weeks 3 Bulk Mail Clerk Goal (LTG) Pt will perform HEP with I including VOR, cervical, postural, strengthening and balance exercises by 11/01/19. LTG Duration 8 weeks 2 Bulk Mail Clerk Goal (LTG) Pt will perform WNLs on DGI to decrease fall risk by . LTG Duration 8 weeks 1 Bulk Mail Clerk Goal (LTG) Pt will report a 50% improvement in dizziness by . LTG Duration 8 weeks Assessment Summary Assessment Initiated postural and cervical ROM exercises this date. Progress VOR and balance exercises. All these exercises are aimed to improved movement of head and vestibular system. Physical Therapy Plan Frequency and Duration Frequency of Treatment 2x/Week Duration of Treatment 8 weeks Plan of Care Start Date 09/01/19 Plan of Care End Date 11/01/19 Therapeutic Interventions Therapeutic Interventions Balance Training,Canalithic Repositioning,Coordination Training,Gait Training,Home Exercise Program,Manual Therapy,Neuromuscular Re- education,Patient/Caregiver Education,Self-Care/Home Management,Soft Tissue Mobilization,Taping, Therapeutic Activities, Therapeutic Exercises, Vestibular Rehabilitation Modalities Cold Pack/Ice Massage,Electric Stimulation,Hot Packs, Ultrasound Other Referrals/Consults Referrals/Consults Recommended Encouraged pt to talk with doctor about her medications given light-headedness Next Visit Focus/Plan Next Note Type Treatment Note Next Visit Plan Consider assessing VOR, starting STM, cervical, postural exercises including intrascapular and shoulder rotator strengthening.
--- NOTE | 2019-09-14 13:45 | PT.OTN ---
Current Diagnoses Benign paroxysmal vertigo, unspecified ear (09/14/19) Physical Therapy Treatment Note PT-OP-A Visit Information Start: 09/01/19 09:01 Freq: Status: Active Protocol: Document 09/14/19 13:06 MB (Rec: 09/14/19 13:45 MB [id number]) Out-Patient Physical Therapy Visit Information Visit Information Visit Type Treatment Note Visit Note Pt has Medicare, unlimited visits Visit Start Time 13:06 Visit Stop Time 13:45 Total Visit Minutes 39 Visit Number 3/unlimited PT-OP-B Current Condition Start: 09/01/19 09:01 Freq: Status: Active Protocol: Document 09/01/19 09:01 MB (Rec: 09/01/19 09:43 MB [id number]) Current Condition History of Current Condition Onset Date About a year Current Complaints Recent severe episode of dizziness when using computer History of Current Condition Pt reports dizziness for about a year when she gets in and out of bed and when she stands up quickly. Pt reports history of spinal and fibromyalgia pain that she does not feel is related to her dizziness. She does occ report neck pain but mostly near her shoulders. Pt denies change in vision, hearing ( wears hearing aides), recent chiropracter care (last treatment on neck in college), recent falls (history of acrobatic accident when younger), numbness and tingling in hands. She reports weakness d/t arthritis. Pt has asthma. Pt takes BP medication, thyroid medication and Tramadol for fibromyalgia pain. Pt is diabetic and DM is controlled with Metformin and another medication. She takes her blood sugar often. Pt reports history of motion sickness. Prior Treatments and Tests She went to the doctor and the doctor turned her head and helped lie her back and she felt spinning dizziness. The doctor turned her head right and left and she felt better after the procedure. Treatment Goals Patient/Caregiver Goals To decrease dizziness PT-OP-C Subjective Start: 09/01/19 09:01 Freq: Status: Active Protocol: Document 09/14/19 13:06 MB (Rec: 09/14/19 13:45 MB [id number]) OP-PT Subjective Patient Comments Patient Comments Pt states that she has been busy. She was sore after racquet ball and has been working on her postural exercises. She still has light -headedness with getting up quickly. She avoids this by sitting up a little while and slowly standing. This has been going on about a year at least. PT-OP-K Range of Motion Start: 09/01/19 09:01 Freq: Status: Active Protocol: Document 09/01/19 09:01 MB (Rec: 09/01/19 09:49 MB [id number]) Cervical Spine Range of Motion Cervical Spine Active Testing Position Supine Rotation Left 60 Rotation Right 45 Comments Quick cervical rotation screen in hook lying as PT triaging assessment tasks and need to check out orthostatic hypotension symptoms, needing pt supine for this PT-OP-M Strength Start: 09/01/19 09:01 Freq: Status: Active Protocol: Document 09/01/19 09:01 MB (Rec: 09/01/19 12:17 MB [id number]) Shoulder Strength Shoulder Manual Muscle Testing Left Flexion 4 Good Right Flexion 5 Normal Comments Supine Elbow/Forearm Strength Elbow and Forearm Manual Muscle Testing Left Flexion (C6) 5 Normal Extension (C7) 5 Normal Right Flexion (C6) 5 Normal Extension (C7) 5 Normal PT-OP-O Vestibular Start: 09/01/19 09:01 Freq: Status: Active Protocol: Document 09/01/19 09:01 MB (Rec: 09/01/19 12:20 MB [id number]) Vestibular Assessment Visual Testing Smooth Pursuits Horizontal . Comments Vestibular Comments No spontaneous nystagmus. B [place]-Hallpike and Roll Test negative for nystagmus. She had very minimal dizziness with R [place]-Hallpike so moved through treatment positions to get to sitting. Log roll d/t pt with fibromyalgia multi- joint pain Orthostatic hypotension assessment: right UE with BP & HR: supine 168/86, 66; machine does not read immediately upon standing and pt reports light-headedness. standing 30 sec: 161/95, 85; standing 1' 153/95, 86 Balance: Romberg 30 sec; pt has to hold onto PT when attempted EC PT-OP-Q Treatments Start: 09/01/19 09:01 Freq: Status: Active Protocol: Document 09/14/19 13:06 MB (Rec: 09/14/19 13:45 MB [id number]) Therapeutic Exercises Other Exercises Log roll Comments Log rolling technique Sit to stands Comments 30 sec sit to stands: 13 reps, pushing from lap; without hands: 10 reps PT-OP-T Assessment and Plan Start: 09/01/19 09:01 Freq: Status: Active Protocol: Document 09/14/19 13:06 MB (Rec: 09/14/19 13:45 MB [id number]) Physical Therapy Assessment Goals 4 Alf Goal (LTG) Pt will deny falls for 2 months by 11/01/19. LTG Duration 8 weeks 3 Alf Goal (LTG) Pt will perform HEP with I including VOR, cervical, postural, strengthening and balance exercises by 11/01/19. LTG Duration 8 weeks 2 Book Author Goal (LTG) Pt will perform WNLs on DGI to decrease fall risk by . LTG Duration 8 weeks 1 Book Author Goal (LTG) Pt will report a 50% improvement in dizziness by . LTG Duration 8 weeks Assessment Summary Assessment Added sit to stands to HEP. Consider Motion Sensitivity Quotient. Orthostatic assessment with BP and HR in left proximal UE: supine 142/ 75; standing 150/82; standing 1 min: 138/76; standing 2 min: does not drop any more. Progress VOR and balance exercises. All these exercises are aimed to improved movement of head and vestibular system. Pt reports trouble with balance with feet together and so will progress balance exercises. Motion Sensitivity Quotient should rule in/out more central vestibular issues. Currently, feel blood pressure changes, leg weakness and balance issues are biggest problems. Physical Therapy Plan Frequency and Duration Frequency of Treatment 2x/Week Duration of Treatment 8 weeks Plan of Care Start Date 09/01/19 Plan of Care End Date 11/01/19 Therapeutic Interventions Therapeutic Interventions Balance Training,Canalithic Repositioning,Coordination Training,Gait Training,Home Exercise Program,Manual Therapy,Neuromuscular Re- education,Patient/Caregiver Education,Self-Care/Home Management,Soft Tissue Mobilization,Taping, Therapeutic Activities, Therapeutic Exercises, Vestibular Rehabilitation Modalities Cold Pack/Ice Massage,Electric Stimulation,Hot Packs, Ultrasound Other Referrals/Consults Referrals/Consults Recommended Encouraged pt to talk with doctor about her medications given light-headedness Next Visit Focus/Plan Next Note Type Treatment Note Next Visit Plan Consider assessing VOR, starting STM, cervical, postural exercises including intrascapular and shoulder rotator strengthening, balance exercises.
--- NOTE | 2019-09-21 08:11 | PT.OTN ---
Current Diagnoses Benign paroxysmal vertigo, unspecified ear (09/21/19) Physical Therapy Treatment Note PT-OP-A Visit Information Start: 09/01/19 09:01 Freq: Status: Active Protocol: Document 09/21/19 07:34 MB (Rec: 09/21/19 08:11 MB [id number]) Out-Patient Physical Therapy Visit Information Visit Information Visit Type Treatment Note Visit Note Pt has Medicare, unlimited visits Visit Start Time 07:34 Visit Stop Time 08:06 Total Visit Minutes 32 Visit Number 4/unlimited PT-OP-B Current Condition Start: 09/01/19 09:01 Freq: Status: Active Protocol: Document 09/01/19 09:01 MB (Rec: 09/01/19 09:43 MB [id number]) Current Condition History of Current Condition Onset Date About a year Current Complaints Recent severe episode of dizziness when using computer History of Current Condition Pt reports dizziness for about a year when she gets in and out of bed and when she stands up quickly. Pt reports history of spinal and fibromyalgia pain that she does not feel is related to her dizziness. She does occ report neck pain but mostly near her shoulders. Pt denies change in vision, hearing ( wears hearing aides), recent chiropracter care (last treatment on neck in college), recent falls (history of acrobatic accident when younger), numbness and tingling in hands. She reports weakness d/t arthritis. Pt has asthma. Pt takes BP medication, thyroid medication and Tramadol for fibromyalgia pain. Pt is diabetic and DM is controlled with Metformin and another medication. She takes her blood sugar often. Pt reports history of motion sickness. Prior Treatments and Tests She went to the doctor and the doctor turned her head and helped lie her back and she felt spinning dizziness. The doctor turned her head right and left and she felt better after the procedure. Treatment Goals Patient/Caregiver Goals To decrease dizziness PT-OP-C Subjective Start: 09/01/19 09:01 Freq: Status: Active Protocol: Document 09/21/19 07:34 MB (Rec: 09/21/19 08:11 MB [id number]) OP-PT Subjective Patient Comments Patient Comments Pt states that her knees were sore from doing the sit to stands. Her right knee clicks and has some pain and this has been an ongoing problem. PT-OP-K Range of Motion Start: 09/01/19 09:01 Freq: Status: Active Protocol: Document 09/01/19 09:01 MB (Rec: 09/01/19 09:49 MB [id number]) Cervical Spine Range of Motion Cervical Spine Active Testing Position Supine Rotation Left 60 Rotation Right 45 Comments Quick cervical rotation screen in hook lying as PT triaging assessment tasks and need to check out orthostatic hypotension symptoms, needing pt supine for this PT-OP-M Strength Start: 09/01/19 09:01 Freq: Status: Active Protocol: Document 09/01/19 09:01 MB (Rec: 09/01/19 12:17 MB [id number]) Shoulder Strength Shoulder Manual Muscle Testing Left Flexion 4 Good Right Flexion 5 Normal Comments Supine Elbow/Forearm Strength Elbow and Forearm Manual Muscle Testing Left Flexion (C6) 5 Normal Extension (C7) 5 Normal Right Flexion (C6) 5 Normal Extension (C7) 5 Normal PT-OP-O Vestibular Start: 09/01/19 09:01 Freq: Status: Active Protocol: Document 09/01/19 09:01 MB (Rec: 09/01/19 12:20 MB [id number]) Vestibular Assessment Visual Testing Smooth Pursuits Horizontal . Comments Vestibular Comments No spontaneous nystagmus. B [place]-Hallpike and Roll Test negative for nystagmus. She had very minimal dizziness with R [place]-Hallpike so moved through treatment positions to get to sitting. Log roll d/t pt with fibromyalgia multi- joint pain Orthostatic hypotension assessment: right UE with BP & HR: supine 168/86, 66; machine does not read immediately upon standing and pt reports light-headedness. standing 30 sec: 161/95, 85; standing 1' 153/95, 86 Balance: Romberg 30 sec; pt has to hold onto PT when attempted EC PT-OP-Q Treatments Start: 09/01/19 09:01 Freq: Status: Active Protocol: Document 09/21/19 07:34 MB (Rec: 09/21/19 08:11 MB [id number]) Therapeutic Exercises Standing Exercises DVA Eye Chart for VOR Comments VOR tested today and PT provides HEP Scapular retraction and ER with level 1 band Comments Performed and added to HEP PT-OP-T Assessment and Plan Start: 09/01/19 09:01 Freq: Status: Active Protocol: Document 09/21/19 07:34 MB (Rec: 09/21/19 08:11 MB [id number]) Physical Therapy Assessment Goals 4 Retirement Goal (LTG) Pt will deny falls for 2 months by 11/01/19. LTG Duration 8 weeks 3 Inspector Optical Instrument Goal (LTG) Pt will perform HEP with I including VOR, cervical, postural, strengthening and balance exercises by 11/01/19. LTG Duration 8 weeks 2 Retirement Goal (LTG) Pt will perform WNLs on DGI to decrease fall risk by . LTG Duration 8 weeks 1 Inspector Optical Instrument Goal (LTG) Pt will report a 50% improvement in dizziness by . LTG Duration 8 weeks Assessment Summary Assessment Pt performed DVA testing with 1 line difference with head turns right and left and up and down compared to head still. She reports it was a challenged and so provided eye chart for HEP. Also initiated postural strengthening. She had trouble with sit to stands and will progress balance exercises with hip strengthening in future treatments. Physical Therapy Plan Frequency and Duration Frequency of Treatment 2x/Week Duration of Treatment 8 weeks Plan of Care Start Date 09/01/19 Plan of Care End Date 11/01/19 Therapeutic Interventions Therapeutic Interventions Balance Training,Canalithic Repositioning,Coordination Training,Gait Training,Home Exercise Program,Manual Therapy,Neuromuscular Re- education,Patient/Caregiver Education,Self-Care/Home Management,Soft Tissue Mobilization,Taping, Therapeutic Activities, Therapeutic Exercises, Vestibular Rehabilitation Modalities Cold Pack/Ice Massage,Electric Stimulation,Hot Packs, Ultrasound Other Referrals/Consults Referrals/Consults Recommended Encouraged pt to talk with doctor about her medications given light-headedness Next Visit Focus/Plan Next Note Type Treatment Note Next Visit Plan Progress strengthening, balance exercises.
--- NOTE | 2019-09-28 14:30 | PT.OTN ---
Current Diagnoses Benign paroxysmal vertigo, unspecified ear (09/28/19) Physical Therapy Treatment Note PT-OP-A Visit Information Start: 09/01/19 09:01 Freq: Status: Active Protocol: Document 09/28/19 13:51 MB (Rec: 09/28/19 14:29 MB [id number]) Out-Patient Physical Therapy Visit Information Visit Information Visit Type Treatment Note Visit Note Pt has Medicare, unlimited visits Visit Start Time 13:51 Visit Stop Time 14:29 Total Visit Minutes 40 Visit Number 5/unlimited PT-OP-B Current Condition Start: 09/01/19 09:01 Freq: Status: Active Protocol: Document 09/01/19 09:01 MB (Rec: 09/01/19 09:43 MB [id number]) Current Condition History of Current Condition Onset Date About a year Current Complaints Recent severe episode of dizziness when using computer History of Current Condition Pt reports dizziness for about a year when she gets in and out of bed and when she stands up quickly. Pt reports history of spinal and fibromyalgia pain that she does not feel is related to her dizziness. She does occ report neck pain but mostly near her shoulders. Pt denies change in vision, hearing ( wears hearing aides), recent chiropracter care (last treatment on neck in college), recent falls (history of acrobatic accident when younger), numbness and tingling in hands. She reports weakness d/t arthritis. Pt has asthma. Pt takes BP medication, thyroid medication and Tramadol for fibromyalgia pain. Pt is diabetic and DM is controlled with Metformin and another medication. She takes her blood sugar often. Pt reports history of motion sickness. Prior Treatments and Tests She went to the doctor and the doctor turned her head and helped lie her back and she felt spinning dizziness. The doctor turned her head right and left and she felt better after the procedure. Treatment Goals Patient/Caregiver Goals To decrease dizziness PT-OP-C Subjective Start: 09/01/19 09:01 Freq: Status: Active Protocol: Document 09/28/19 13:51 MB (Rec: 09/28/19 14:29 MB [id number]) OP-PT Subjective Patient Comments Patient Comments Pt states that she does not like the VOR exercises d/t it is difficult to move her neck far and keep her eyes on target. PT-OP-K Range of Motion Start: 09/01/19 09:01 Freq: Status: Active Protocol: Document 09/01/19 09:01 MB (Rec: 09/01/19 09:49 MB [id number]) Cervical Spine Range of Motion Cervical Spine Active Testing Position Supine Rotation Left 60 Rotation Right 45 Comments Quick cervical rotation screen in hook lying as PT triaging assessment tasks and need to check out orthostatic hypotension symptoms, needing pt supine for this PT-OP-M Strength Start: 09/01/19 09:01 Freq: Status: Active Protocol: Document 09/01/19 09:01 MB (Rec: 09/01/19 12:17 MB [id number]) Shoulder Strength Shoulder Manual Muscle Testing Left Flexion 4 Good Right Flexion 5 Normal Comments Supine Elbow/Forearm Strength Elbow and Forearm Manual Muscle Testing Left Flexion (C6) 5 Normal Extension (C7) 5 Normal Right Flexion (C6) 5 Normal Extension (C7) 5 Normal PT-OP-O Vestibular Start: 09/01/19 09:01 Freq: Status: Active Protocol: Document 09/01/19 09:01 MB (Rec: 09/01/19 12:20 MB [id number]) Vestibular Assessment Visual Testing Smooth Pursuits Horizontal . Comments Vestibular Comments No spontaneous nystagmus. B [place]-Hallpike and Roll Test negative for nystagmus. She had very minimal dizziness with R [place]-Hallpike so moved through treatment positions to get to sitting. Log roll d/t pt with fibromyalgia multi- joint pain Orthostatic hypotension assessment: right UE with BP & HR: supine 168/86, 66; machine does not read immediately upon standing and pt reports light-headedness. standing 30 sec: 161/95, 85; standing 1' 153/95, 86 Balance: Romberg 30 sec; pt has to hold onto PT when attempted EC PT-OP-Q Treatments Start: 09/01/19 09:01 Freq: Status: Active Protocol: Document 09/28/19 13:51 MB (Rec: 09/28/19 14:29 MB [id number]) Therapeutic Exercises Sitting Exercises Upper traps/levator stretch Comments Pt holding on to edge of seat Standing Exercises DVA Eye Chart for VOR Comments Reviewed today, pt performing horizontal head turns Scapular retraction and ER with level 1 band Comments Reviewed this date PT-OP-T Assessment and Plan Start: 09/01/19 09:01 Freq: Status: Active Protocol: Document 09/28/19 13:51 MB (Rec: 09/28/19 14:29 MB [id number]) Physical Therapy Assessment Goals 4 Database Designer Goal (LTG) Pt will deny falls for 2 months by 11/01/19. LTG Duration 8 weeks 3 Group Home Goal (LTG) Pt will perform HEP with I including VOR, cervical, postural, strengthening and balance exercises by 11/01/19. LTG Duration 8 weeks 2 Group Home Goal (LTG) Pt will perform WNLs on DGI to decrease fall risk by . LTG Duration 8 weeks 1 Group Home Goal (LTG) Pt will report a 50% improvement in dizziness by . LTG Duration 8 weeks Assessment Summary Assessment Reviewed DVA exercise. Pt is performing postural exercises. Racquet ball was uncomfortable, so not progressed. Consider adding hip strengthening in standing to help with balance. Physical Therapy Plan Frequency and Duration Frequency of Treatment 2x/Week Duration of Treatment 8 weeks Plan of Care Start Date 09/01/19 Plan of Care End Date 11/01/19 Therapeutic Interventions Therapeutic Interventions Balance Training,Canalithic Repositioning,Coordination Training,Gait Training,Home Exercise Program,Manual Therapy,Neuromuscular Re- education,Patient/Caregiver Education,Self-Care/Home Management,Soft Tissue Mobilization,Taping, Therapeutic Activities, Therapeutic Exercises, Vestibular Rehabilitation Modalities Cold Pack/Ice Massage,Electric Stimulation,Hot Packs, Ultrasound Other Referrals/Consults Referrals/Consults Recommended Encouraged pt to talk with doctor about her medications given light-headedness Next Visit Focus/Plan Next Note Type Treatment Note Next Visit Plan Progress balance exercises.
--- NOTE | 2019-10-05 08:10 | PT.OTN ---
Current Diagnoses Benign paroxysmal vertigo, unspecified ear (10/05/19) Physical Therapy Treatment Note PT-OP-A Visit Information Start: 09/01/19 09:01 Freq: Status: Active Protocol: Document 10/05/19 07:32 MB (Rec: 10/05/19 08:10 MB [id number]) Out-Patient Physical Therapy Visit Information Visit Information Visit Type Treatment Note Visit Note Shortened treatment d/t provided rest of HEP and pt performs this date. Visit Start Time 07:32 Visit Stop Time 08:00 Total Visit Minutes 28 Visit Number 6/unlimited PT-OP-B Current Condition Start: 09/01/19 09:01 Freq: Status: Active Protocol: Document 09/01/19 09:01 MB (Rec: 09/01/19 09:43 MB [id number]) Current Condition History of Current Condition Onset Date About a year Current Complaints Recent severe episode of dizziness when using computer History of Current Condition Pt reports dizziness for about a year when she gets in and out of bed and when she stands up quickly. Pt reports history of spinal and fibromyalgia pain that she does not feel is related to her dizziness. She does occ report neck pain but mostly near her shoulders. Pt denies change in vision, hearing ( wears hearing aides), recent chiropracter care (last treatment on neck in college), recent falls (history of acrobatic accident when younger), numbness and tingling in hands. She reports weakness d/t arthritis. Pt has asthma. Pt takes BP medication, thyroid medication and Tramadol for fibromyalgia pain. Pt is diabetic and DM is controlled with Metformin and another medication. She takes her blood sugar often. Pt reports history of motion sickness. Prior Treatments and Tests She went to the doctor and the doctor turned her head and helped lie her back and she felt spinning dizziness. The doctor turned her head right and left and she felt better after the procedure. Treatment Goals Patient/Caregiver Goals To decrease dizziness PT-OP-C Subjective Start: 09/01/19 09:01 Freq: Status: Active Protocol: Document 10/05/19 07:32 MB (Rec: 10/05/19 08:10 MB [id number]) OP-PT Subjective Patient Comments Patient Comments Pt states that she is doing pretty good. She was raking and the rake end broke off and hit the inside of her left ankle. PT-OP-K Range of Motion Start: 09/01/19 09:01 Freq: Status: Active Protocol: Document 09/01/19 09:01 MB (Rec: 09/01/19 09:49 MB [id number]) Cervical Spine Range of Motion Cervical Spine Active Testing Position Supine Rotation Left 60 Rotation Right 45 Comments Quick cervical rotation screen in hook lying as PT triaging assessment tasks and need to check out orthostatic hypotension symptoms, needing pt supine for this PT-OP-M Strength Start: 09/01/19 09:01 Freq: Status: Active Protocol: Document 09/01/19 09:01 MB (Rec: 09/01/19 12:17 MB [id number]) Shoulder Strength Shoulder Manual Muscle Testing Left Flexion 4 Good Right Flexion 5 Normal Comments Supine Elbow/Forearm Strength Elbow and Forearm Manual Muscle Testing Left Flexion (C6) 5 Normal Extension (C7) 5 Normal Right Flexion (C6) 5 Normal Extension (C7) 5 Normal PT-OP-O Vestibular Start: 09/01/19 09:01 Freq: Status: Active Protocol: Document 09/01/19 09:01 MB (Rec: 09/01/19 12:20 MB [id number]) Vestibular Assessment Visual Testing Smooth Pursuits Horizontal . Comments Vestibular Comments No spontaneous nystagmus. B Olivier-Hallpike and Roll Test negative for nystagmus. She had very minimal dizziness with R [place]-Hallpike so moved through treatment positions to get to sitting. Log roll d/t pt with fibromyalgia multi- joint pain Orthostatic hypotension assessment: right UE with BP & HR: supine 168/86, 66; machine does not read immediately upon standing and pt reports light-headedness. standing 30 sec: 161/95, 85; standing 1' 153/95, 86 Balance: Romberg 30 sec; pt has to hold onto PT when attempted EC PT-OP-Q Treatments Start: 09/01/19 09:01 Freq: Status: Active Protocol: Document 10/05/19 07:32 MB (Rec: 10/05/19 08:10 MB [id number]) Therapeutic Exercises Sitting Exercises Ankle eversion and DF with level 1 band Comments Performed this date x10 reps and added to HEP Standing Exercises Romberg in corner EC and EO Comments Performed 3 sets this date x1' per set, progressed EO Hip abduction and extension with level 1 band Comments Performed x5 reps this date and added to HEP PT-OP-T Assessment and Plan Start: 09/01/19 09:01 Freq: Status: Active Protocol: Document 10/05/19 07:32 MB (Rec: 10/05/19 08:10 MB [id number]) Physical Therapy Assessment Goals 4 Reverser Goal (LTG) Pt will deny falls for 2 months by 11/01/19. LTG Duration 8 weeks 3 Half-Way Goal (LTG) Pt will perform HEP with I including VOR, cervical, postural, strengthening and balance exercises by 11/01/19. LTG Duration 8 weeks 2 Reverser Goal (LTG) Pt will perform WNLs on DGI to decrease fall risk by . LTG Duration 8 weeks 1 Half-Way Goal (LTG) Pt will report a 50% improvement in dizziness by . LTG Duration 8 weeks Assessment Summary Assessment Progressed all HEP exercises this date including hip strengthening, ankle strengthening and balance. Plan to d/c next treatment date with pt con't HEP at home . Consider assessing VOR exercise, orthostatics and balance for d/c date. Physical Therapy Plan Frequency and Duration Frequency of Treatment 2x/Week Duration of Treatment 8 weeks Plan of Care Start Date 09/01/19 Plan of Care End Date 11/01/19 Therapeutic Interventions Therapeutic Interventions Balance Training,Canalithic Repositioning,Coordination Training,Gait Training,Home Exercise Program,Manual Therapy,Neuromuscular Re- education,Patient/Caregiver Education,Self-Care/Home Management,Soft Tissue Mobilization,Taping, Therapeutic Activities, Therapeutic Exercises, Vestibular Rehabilitation Modalities Cold Pack/Ice Massage,Electric Stimulation,Hot Packs, Ultrasound Other Referrals/Consults Referrals/Consults Recommended Encouraged pt to talk with doctor about her medications given light-headedness Next Visit Focus/Plan Next Note Type Discharge Summary
--- NOTE | 2019-10-05 08:13 | PT.OTN ---
Current Diagnoses Benign paroxysmal vertigo, unspecified ear (10/05/19) Physical Therapy Treatment Note PT-OP-A Visit Information Start: 09/01/19 09:01 Freq: Status: Active Protocol: Document 10/05/19 07:32 MB (Rec: 10/05/19 08:10 MB [id number]) Out-Patient Physical Therapy Visit Information Visit Information Visit Type Treatment Note Visit Note Shortened treatment d/t provided rest of HEP and pt performs this date. Visit Start Time 07:32 Visit Stop Time 08:00 Total Visit Minutes 28 Visit Number 6/unlimited PT-OP-B Current Condition Start: 09/01/19 09:01 Freq: Status: Active Protocol: Document 09/01/19 09:01 MB (Rec: 09/01/19 09:43 MB [id number]) Current Condition History of Current Condition Onset Date About a year Current Complaints Recent severe episode of dizziness when using computer History of Current Condition Pt reports dizziness for about a year when she gets in and out of bed and when she stands up quickly. Pt reports history of spinal and fibromyalgia pain that she does not feel is related to her dizziness. She does occ report neck pain but mostly near her shoulders. Pt denies change in vision, hearing ( wears hearing aides), recent chiropracter care (last treatment on neck in college), recent falls (history of acrobatic accident when younger), numbness and tingling in hands. She reports weakness d/t arthritis. Pt has asthma. Pt takes BP medication, thyroid medication and Tramadol for fibromyalgia pain. Pt is diabetic and DM is controlled with Metformin and another medication. She takes her blood sugar often. Pt reports history of motion sickness. Prior Treatments and Tests She went to the doctor and the doctor turned her head and helped lie her back and she felt spinning dizziness. The doctor turned her head right and left and she felt better after the procedure. Treatment Goals Patient/Caregiver Goals To decrease dizziness PT-OP-C Subjective Start: 09/01/19 09:01 Freq: Status: Active Protocol: Document 10/05/19 07:32 MB (Rec: 10/05/19 08:10 MB [id number]) OP-PT Subjective Patient Comments Patient Comments Pt states that she is doing pretty good. She was raking and the rake end broke off and hit the inside of her left ankle. PT-OP-K Range of Motion Start: 09/01/19 09:01 Freq: Status: Active Protocol: Document 09/01/19 09:01 MB (Rec: 09/01/19 09:49 MB [id number]) Cervical Spine Range of Motion Cervical Spine Active Testing Position Supine Rotation Left 60 Rotation Right 45 Comments Quick cervical rotation screen in hook lying as PT triaging assessment tasks and need to check out orthostatic hypotension symptoms, needing pt supine for this PT-OP-M Strength Start: 09/01/19 09:01 Freq: Status: Active Protocol: Document 09/01/19 09:01 MB (Rec: 09/01/19 12:17 MB [id number]) Shoulder Strength Shoulder Manual Muscle Testing Left Flexion 4 Good Right Flexion 5 Normal Comments Supine Elbow/Forearm Strength Elbow and Forearm Manual Muscle Testing Left Flexion (C6) 5 Normal Extension (C7) 5 Normal Right Flexion (C6) 5 Normal Extension (C7) 5 Normal PT-OP-O Vestibular Start: 09/01/19 09:01 Freq: Status: Active Protocol: Document 09/01/19 09:01 MB (Rec: 09/01/19 12:20 MB [id number]) Vestibular Assessment Visual Testing Smooth Pursuits Horizontal . Comments Vestibular Comments No spontaneous nystagmus. B Olivier-Hallpike and Roll Test negative for nystagmus. She had very minimal dizziness with R [place]-Hallpike so moved through treatment positions to get to sitting. Log roll d/t pt with fibromyalgia multi- joint pain Orthostatic hypotension assessment: right UE with BP & HR: supine 168/86, 66; machine does not read immediately upon standing and pt reports light-headedness. standing 30 sec: 161/95, 85; standing 1' 153/95, 86 Balance: Romberg 30 sec; pt has to hold onto PT when attempted EC PT-OP-Q Treatments Start: 09/01/19 09:01 Freq: Status: Active Protocol: Document 10/05/19 07:32 MB (Rec: 10/05/19 08:10 MB [id number]) Therapeutic Exercises Sitting Exercises Ankle eversion and DF with level 1 band Comments Performed this date x10 reps and added to HEP Standing Exercises Romberg in corner EC and EO Comments Performed 3 sets this date x1' per set, progressed EO Hip abduction and extension with level 1 band Comments Performed x5 reps this date and added to HEP PT-OP-T Assessment and Plan Start: 09/01/19 09:01 Freq: Status: Active Protocol: Document 10/05/19 07:32 MB (Rec: 10/05/19 08:10 MB [id number]) Physical Therapy Assessment Goals 4 Tenter Goal (LTG) Pt will deny falls for 2 months by 11/01/19. LTG Duration 8 weeks 3 Fci Goal (LTG) Pt will perform HEP with I including VOR, cervical, postural, strengthening and balance exercises by 11/01/19. LTG Duration 8 weeks 2 Tenter Goal (LTG) Pt will perform WNLs on DGI to decrease fall risk by . LTG Duration 8 weeks 1 Fci Goal (LTG) Pt will report a 50% improvement in dizziness by . LTG Duration 8 weeks Assessment Summary Assessment Progressed all HEP exercises this date including hip strengthening, ankle strengthening and balance. Plan to d/c next treatment date with pt con't HEP at home . Consider assessing VOR exercise, orthostatics and balance for d/c date. Physical Therapy Plan Frequency and Duration Frequency of Treatment 2x/Week Duration of Treatment 8 weeks Plan of Care Start Date 09/01/19 Plan of Care End Date 11/01/19 Therapeutic Interventions Therapeutic Interventions Balance Training,Canalithic Repositioning,Coordination Training,Gait Training,Home Exercise Program,Manual Therapy,Neuromuscular Re- education,Patient/Caregiver Education,Self-Care/Home Management,Soft Tissue Mobilization,Taping, Therapeutic Activities, Therapeutic Exercises, Vestibular Rehabilitation Modalities Cold Pack/Ice Massage,Electric Stimulation,Hot Packs, Ultrasound Other Referrals/Consults Referrals/Consults Recommended Encouraged pt to talk with doctor about her medications given light-headedness Next Visit Focus/Plan Next Note Type Discharge Summary
--- NOTE | 2019-10-08 12:55 | PT.OTN ---
Current Diagnoses Benign paroxysmal vertigo, unspecified ear (10/08/19) Physical Therapy Treatment Note PT-OP-A Visit Information Start: 09/01/19 09:01 Freq: Status: Active Protocol: Document 10/08/19 12:23 MB (Rec: 10/08/19 12:36 MB [id number]) Out-Patient Physical Therapy Visit Information Visit Information Visit Type Treatment Note Visit Note Shortened treatment this date d/t goals addressed and met and pt needing to return home Visit Start Time 12:23 Visit Stop Time 12:48 Total Visit Minutes 25 Visit Number 7/unlimited PT-OP-B Current Condition Start: 09/01/19 09:01 Freq: Status: Active Protocol: Document 09/01/19 09:01 MB (Rec: 09/01/19 09:43 MB [id number]) Current Condition History of Current Condition Onset Date About a year Current Complaints Recent severe episode of dizziness when using computer History of Current Condition Pt reports dizziness for about a year when she gets in and out of bed and when she stands up quickly. Pt reports history of spinal and fibromyalgia pain that she does not feel is related to her dizziness. She does occ report neck pain but mostly near her shoulders. Pt denies change in vision, hearing ( wears hearing aides), recent chiropracter care (last treatment on neck in college), recent falls (history of acrobatic accident when younger), numbness and tingling in hands. She reports weakness d/t arthritis. Pt has asthma. Pt takes BP medication, thyroid medication and Tramadol for fibromyalgia pain. Pt is diabetic and DM is controlled with Metformin and another medication. She takes her blood sugar often. Pt reports history of motion sickness. Prior Treatments and Tests She went to the doctor and the doctor turned her head and helped lie her back and she felt spinning dizziness. The doctor turned her head right and left and she felt better after the procedure. Treatment Goals Patient/Caregiver Goals To decrease dizziness PT-OP-C Subjective Start: 09/01/19 09:01 Freq: Status: Active Protocol: Document 10/08/19 12:23 MB (Rec: 10/08/19 12:31 MB [id number]) OP-PT Subjective Patient Comments Patient Comments Pt states that since she has been doing Romberg exercise, she has been able to close her eyes in the shower. PT-OP-K Range of Motion Start: 10/30/19 09:01 Freq: Status: Active Protocol: Document 09/01/19 09:01 MB (Rec: 09/01/19 09:49 MB [id number]) Cervical Spine Range of Motion Cervical Spine Active Testing Position Supine Rotation Left 60 Rotation Right 45 Comments Quick cervical rotation screen in hook lying as PT triaging assessment tasks and need to check out orthostatic hypotension symptoms, needing pt supine for this PT-OP-M Strength Start: 09/01/19 09:01 Freq: Status: Active Protocol: Document 09/01/19 09:01 MB (Rec: 09/01/19 12:17 MB [id number]) Shoulder Strength Shoulder Manual Muscle Testing Left Flexion 4 Good Right Flexion 5 Normal Comments Supine Elbow/Forearm Strength Elbow and Forearm Manual Muscle Testing Left Flexion (C6) 5 Normal Extension (C7) 5 Normal Right Flexion (C6) 5 Normal Extension (C7) 5 Normal PT-OP-O Vestibular Start: 09/01/19 09:01 Freq: Status: Active Protocol: Document 09/01/19 09:01 MB (Rec: 09/01/19 12:20 MB [id number]) Vestibular Assessment Visual Testing Smooth Pursuits Horizontal . Comments Vestibular Comments No spontaneous nystagmus. B [place]-Hallpike and Roll Test negative for nystagmus. She had very minimal dizziness with R [place]-Hallpike so moved through treatment positions to get to sitting. Log roll d/t pt with fibromyalgia multi- joint pain Orthostatic hypotension assessment: right UE with BP & HR: supine 168/86, 66; machine does not read immediately upon standing and pt reports light-headedness. standing 30 sec: 161/95, 85; standing 1' 153/95, 86 Balance: Romberg 30 sec; pt has to hold onto PT when attempted EC PT-OP-Q Treatments Start: 09/01/19 09:01 Freq: Status: Active Protocol: Document 10/08/19 12:23 MB (Rec: 10/08/19 12:36 MB [id number]) Therapeutic Exercises Other Exercises Reviewed all her HEP exercises in preparation for d/c Comments Prepared for d/c Self-Care/Home Management Treatment Education Other Education LUE proximal UE with BP & HR: supine: 143/84, 60; standing 160/88, 65; standing 30 sec 146/81, 68; standing 1' 140/88 , 72. Ed pt on fluctuating BP symptoms and increasing non- caffeinated fluid intake. PT-OP-T Assessment and Plan Start: 09/01/19 09:01 Freq: Status: Active Protocol: Document 10/08/19 12:23 MB (Rec: 10/08/19 12:31 MB [id number]) Physical Therapy Assessment Goals 4 Beading Installer Goal (LTG) Pt will deny falls for 2 months by 11/01/19. 10/08/19: Pt denies falls LTG Duration 8 weeks 3 Long-Term Goal (LTG) Pt will perform HEP with I including VOR, cervical, postural, strengthening and balance exercises by 11/01/19. 10/08/19: Pt is performing progressive HEP with I. LTG Duration 8 weeks 2 Beading Installer Goal (LTG) Pt will perform WNLs on DGI to decrease fall risk by . LTG Duration 8 weeks 1 Long-Term Goal (LTG) Pt will report a 50% improvement in dizziness by . 10/08/19: Pt reports at least a 50% improvement in dizziness since starting PT. LTG Duration 8 weeks Assessment Summary Assessment Pt has met the following PT goals since starting PT: no falls, at least a 50% improvement in dizziness and performance of HEP with I. Her balance is better per report of being able to close eyes in shower. Pt has maximized PT potential and is ready for d/c . D/c PT. Physical Therapy Plan Other Referrals/Consults Referrals/Consults Recommended Encouraged pt to talk with doctor about her medications given light-headedness Discharge Physical Therapy Discharge Comments Discharge PT today. Pt to con' t with HEP. See summary comments for further info.
== END 2019-10-29 10:19 | disposition home or self-care (01) ==
LOC: PHYS 12:15
PROVIDERS: PCP Internal Medicine; Visit Provider Internal Medicine
DX: H81.10 Benign paroxysmal vertigo, unspecified ear (principal)
CPT/HCPCS: 97110; 97162; 97535

== ENCOUNTER → 2019-11-25 15:02 | Outpatient (ROUT) | payer MEDICARE, OTHER, SELFPAY ==
[2019-11-25 15:25] LABS: Blood Urea Nitrogen 14 mg/dL (7-17); Calcium 9.6 mg/dL (8.4-10.2); Carbon Dioxide 31 mmol/L (22-32); Chloride 99 mmol/L (98-107); Estimated Glomerular Filt Rate > 60.0 mL/min (>60); Glucose 167 mg/dL (80-110); HEMOLYSIS < 15 (0-50); Potassium 3.8 mmol/L (3.4-5.1); Sodium 139 mmol/L (137-145)
[2019-11-25 15:28] LABS: Hemoglobin A1C% w Est Avg Glu 5.3 % (4.0-6.0)
[2019-11-25 15:54] LABS: TSH w/ Reflex to FT4 9.68 uIU/mL (0.47-4.68)
[2019-11-25 16:23] LABS: Free T4, Direct Thyroxine 1.45 ng/dL (0.78-2.19)
== END ==
PROVIDERS: PCP Internal Medicine; Visit Provider Internal Medicine
DX: E11.9 Type 2 diabetes mellitus without complications (principal); E03.9 Hypothyroidism, unspecified; I10 Essential (primary) hypertension
CPT/HCPCS: 80048; 83036; 84439; 84443

== ENCOUNTER → 2019-11-25 15:15 | Outpatient (CLI) | payer MEDICARE, OTHER, SELFPAY ==
--- NOTE | 2019-11-25 | DI.RAD.S_ITS ---
PROCEDURE: XR ANKLE RT MIN 3V INDICATIONS: RIGHT ANKLE PAIN TECHNIQUE: 3 views of the ankle were acquired. COMPARISON: None. FINDINGS: Bones: There is small area of linear cortical irregularity at the distal fibula. Ankle mortise is normally aligned. 7 mm focus of sclerosis is present within the calcaneus. Soft tissues: Bimalleolar edema is present. Achilles tendon appears normal. IMPRESSION: 1. Linear cortical irregularity of the distal fibula which could represent small avulsion injury. Recommend correlation point tenderness and interval imaging followup in 7-10 days for further evaluation. 2. 7 mm sclerosis within the calcaneus. This could represent a bone island. However, if there is clinical concern for pain or other systemic symptoms such as neoplasm, further evaluation with bone scan may be obtained. Dictated by: Sarahi Garcia M.D. on 11/25/2019 at 17:04 Approved by: Sarahi Garcia M.D. on 11/25/2019 at 17:06
== END ==
PROVIDERS: PCP Internal Medicine; Visit Provider Internal Medicine
DX: M25.571 Pain in right ankle and joints of right foot (principal); E11.9 Type 2 diabetes mellitus without complications; E03.9 Hypothyroidism, unspecified; I10 Essential (primary) hypertension
CPT/HCPCS: 73610; 80048; 83036; 84439; 84443

== ENCOUNTER → 2020-02-23 13:00 | Outpatient (CLI) | payer MEDICARE, OTHER, SELFPAY ==
[2020-02-23 15:04] LABS: TSH w/ Reflex to FT4 1.06 uIU/mL (0.47-4.68)
== END ==
PROVIDERS: PCP Internal Medicine; Referring Provider Internal Medicine; Visit Provider Internal Medicine
DX: E03.9 Hypothyroidism, unspecified (principal)
CPT/HCPCS: 36415; 84443

== ENCOUNTER → 2020-03-29 08:03 | Outpatient (CLI) | payer MEDICARE, OTHER, SELFPAY ==
--- NOTE | 2020-03-29 | DI.US.S_ITS ---
PROCEDURE: US PERIPH VENOUS LOW EXTREM LT INDICATIONS: PAIN TECHNIQUE: Real-time imaging, as well as color and pulse Doppler interrogation, were performed of the lower extremity deep veins from the inguinal ligament to the popliteal fossa. COMPARISON: None. FINDINGS: The common femoral, femoral and popliteal veins are normally compressible, and free of intraluminal thrombus. Color and pulse Doppler demonstrate normal phasic intraluminal flow. There is normal augmentation response to distal compression maneuver. Scanning over the anterior lower calf region palpable abnormality ventral to the tibial diaphysis reveals a 7 x 39 x 23 mm complex avascular fluid collection most likely a hematoma. IMPRESSION: No DVT found. Anterior catheter presumed hematoma ventral to the anterior tibial cortex. The patient reports pain after trauma in this area. Dictated by: Sandip Hirsch M.D. on 03/29/2020 at 11:00 Approved by: Sandip Hirsch M.D. on 03/29/2020 at 11:01
== END ==
PROVIDERS: PCP Internal Medicine; Referring Provider Internal Medicine; Visit Provider Internal Medicine
DX: M79.605 Pain in left leg (principal); M79.89 Other specified soft tissue disorders
CPT/HCPCS: 93971

== ENCOUNTER → 2020-06-09 08:03 | Outpatient (CLI) | payer MEDICARE, OTHER, SELFPAY ==
--- NOTE | 2020-06-09 | DI.MG.S_ITS ---
BILATERAL DIGITAL SCREENING MAMMOGRAM 3D/2D WITH CAD: 06/09/2020 CLINICAL: Routine screening. Comparison is made to exams dated: 02/05/2019 mammogram, 12/08/2017 mammogram, and 12/25/2012 mammogram - [facility]. There are scattered fibroglandular elements in both breasts. Current study was also evaluated with a Computer Aided Detection (CAD) system. There are benign calcifications in both breasts. No significant masses, calcifications, or other findings are seen in either breast. There has been no significant interval change. IMPRESSION: BENIGN There is no mammographic evidence of malignancy. A 1 year screening mammogram is recommended. This exam was interpreted at Station ID: [id number]. NOTE: For mammograms, a report in lay terms will be sent to the patient. Approximately 15% of breast malignancies will not be visualized mammographically. In the management of a palpable breast mass, a negative mammogram must not discourage biopsy of a clinically suspicious lesion. Electronically Signed By: Dontrell Durham M.D., jr/peg:06/09/2020 08:44:51 letter sent: Normal Exam ACR BI-RADS Category 2: Benign Finding(s) [id number]
== END ==
PROVIDERS: PCP Internal Medicine; Referring Provider Internal Medicine; Visit Provider Internal Medicine
DX: Z12.31 Encounter for screening mammogram for malignant neoplasm of breast (principal)
CPT/HCPCS: 77063; 77067

== ENCOUNTER → 2021-01-06 07:51 | Outpatient (CLI) | payer MEDICARE, OTHER, SELFPAY ==
[2021-01-06 09:32] LABS: Alanine Aminotransferase 12 IU/L (<35); Albumin 3.7 g/dL (3.5-5.0); Albumin Globulin Ratio 1.6 (1.0-2.8); Alkaline Phosphatase 53 U/L (38-126); Aspartate Aminotransferase 23 IU/L (14-36); BUN Creatinine Ratio 26.1 (6-22); Bilirubin Total 0.6 mg/dL (0.2-1.3); Blood Urea Nitrogen 12 mg/dL (7-17); Calcium 8.9 mg/dL (8.4-10.2); Carbon Dioxide 34 mmol/L (22-32); Chloride 101 mmol/L (98-107); Cholesterol 124 mg/dL (140-199); Estimated Glomerular Filt Rate > 60.0 mL/min (>60); Globulin 2.3 g/dL (1.7-4.1); Glucose 76 mg/dL (80-110); HDL Cholesterol 53 mg/dL (40-60); HEMOLYSIS < 15 (0-50); LDL Cholesterol Calculated 50 mg/dL (<100); Potassium 4.1 mmol/L (3.4-5.1); Sodium 138 mmol/L (137-145); Triglycerides 104 mg/dL (35-150)
[2021-01-06 10:02] LABS: TSH w/ Reflex to FT4 0.82 uIU/mL (0.47-4.68)
== END ==
PROVIDERS: PCP Internal Medicine; Referring Provider Internal Medicine; Visit Provider Internal Medicine
DX: I10 Essential (primary) hypertension (principal); E78.5 Hyperlipidemia, unspecified; E03.9 Hypothyroidism, unspecified
CPT/HCPCS: 36415; 80053; 80061; 84443

== ENCOUNTER 2021-04-05 14:51 | Emergency (ER) | payer MEDICARE, OTHER, SELFPAY ==
[2021-04-05 14:56] VITALS: BP 174/126; PULSE 72; RESP 18; TEMP 36.6; BMI 30.2
[2021-04-05] MEDS: OXYMETAZOLINE NASAL SPRAY 15 ML 2 SPRAYS NASAL (15:03)
--- NOTE | 2021-04-05 15:24 | ED_ITS ---
HPI - General Adult General Chief complaint: Nasal Problem Stated complaint: Nose Bleed Time Seen by Provider: 04/05/21 15:08 Source: patient Mode of arrival: Ambulatory Limitations: no limitations History of Present Illness HPI narrative: Patient is a 80-year-old female not on anticoagulation here for evaluation of a nosebleed. Patient states that it occurred very shortly prior to arrival. She denies any trauma. She has tried pressure at home without any response. She does feel it coming down the back of her throat an out of the front. Appears to be coming from the left nostril. Related Data Home Medications Medication Instructions Recorded Confirmed fluticasone propion-salmeterol 1 puff INHALATION BID 02/17/19 04/07/19 [Advair Diskus] glipizide 5 mg PO DAILY 02/17/19 04/07/19 hydralazine 25 mg PO BID 02/17/19 04/07/19 levothyroxine 50 mcg PO DAILY 02/17/19 04/07/19 metformin 500 mg PO TID 02/17/19 04/07/19 tramadol 100 mg PO DAILY 02/17/19 04/07/19 acetaminophen [Tylenol Extra 1,000 mg PO DAILY 04/07/19 04/07/19 Strength] furosemide 10 mg PO DAILY PRN 04/07/19 04/07/19 gabapentin 200 mg PO BEDTIME 04/07/19 04/07/19 loratadine 10 mg PO DAILY 04/07/19 04/07/19 montelukast 10 mg PO QPM 04/07/19 04/07/19 rosuvastatin 5 mg PO Q OTHER DAY 04/07/19 04/07/19 salmeterol 1 inh INHALATION Q12H 04/07/19 04/07/19 Allergies Allergy/AdvReac Type Severity Reaction Status Date / Time No Known Drug Allergies Allergy Verified 04/07/19 08:33 Review of Systems Constitutional Constitutional: Denies headache(s) ENT Ears, Nose, Mouth, and Throat: Denies headache(s), Reports epistaxis and Denies throat swelling Cardiovascular Cardiovascular: Denies dyspnea Respiratory Respiratory: Denies dyspnea Integumentary/Breasts Skin/Breast: Denies rash Neurologic Neurologic: Denies headache(s) Hematologic/Lymphatic Hematologic/Lymphatic: Denies easy bleeding and Denies easy bruising On Anticoagulants: No Allergic/Immunologic Allergic/Immunologic: Denies throat swelling Patient History Medical History Hypertension Seasonal allergies Surgical History (Updated 03/06/18 @ 22:27 by Reyes Cotter MD) History of tonsillectomy and adenoidectomy Social History household members: none Smoking Status: Never smoker alcohol intake: never substance use type: does not use additional social history: Social history and family history are otherwise noncontributory Smoking Status: Never smoker Substance Use Type: does not use Exam Initial Vital Signs Initial Vital Signs: Vital Signs Temperature 97.8 F 04/05/21 14:56 Pulse Rate 72 04/05/21 14:56 Respiratory Rate 18 04/05/21 14:56 Blood Pressure 174/126 H 04/05/21 14:56 Const General: cooperative and comfortable Limitations: mental status not altered HENMT Head: normal to inspection and normocephalic Ears: hearing grossly normal bilaterally Nose: epistaxis Face and sinus: normal facial exam Mouth: oral mucosae normal Resp Effort & Inspection: normal respiratory effort Cardio Rate: regular rate Skin Lesions: no lesions Rashes: no rashes Neuro General: patient alert and patient awake Cognition: normal cognition Extrem General: capillary refill normal Psych Appearance: grossly normal and well kempt Procedures Epistaxis Control Time Out Performed: Yes Nostril: left Direct Inspection: unable to visualize Clots Removed by: blowing nose Cautery Used: none Device Inserted: nasal tampon Device Size: 45 Patient Tolerated Procedure: well Complications: continued epistaxis Course Orders Ordered: Discontinued Medications Oxymetazoline HCl (Oxymetazoline Nasal [place] 15 Ml) 2 sprays NASAL NOW ONE Stop: 04/05/21 14:59 Last Admin: 04/05/21 15:03 Dose: 2 sprays Documented by: KEYONNA Silver Nitrate/Potassium Nitrate (Silver Nitrate Stick) 2 each TOP NOW ONE Stop: 04/05/21 15:15 Vital Signs Vital signs: Vital Signs - 8 hr 04/05/21 14:56 Temperature 97.8 F Pulse Rate 72 Respiratory Rate 18 Blood Pressure 174/126 H Medical Decision Making MDM Narrative Medical decision making narrative: A 4.5 size rhino rocket was placed in the left nares however the bleeding continued and started to come out of the right nostril. Attempted to have direct visualization of the bleeding site however we were unable to find the vessel that was bleeding. There was concern that it was a posterior bleed. Vital signs were stable. Did discuss the case with Dr. delacruz with ENT who the patient is seen in the past who asked that the patient be sent to his office where his equipment was located. I feel that the patient is stable for this and would most likely benefit from this. I did discuss with her and she agreed. Nasal clamp was placed and she left with her ride to go to the ENT office. She was given return precautions. She expressed understanding agreement. Discharge Plan Departure Patient Disposition: Home Clinical Impression: Epistaxis Instructions: DI for Nosebleed Activity Restrictions/Additional Instructions: I did discuss your case with Dr delacruz with ENT. He sould like to see you in his office. The address is [address] [place] [address]. Please go directly there after discharge from the ER. Prescriptions: No Action hydralazine 25 mg Tablet 25 mg PO BID RF: 0 levothyroxine 50 mcg Tablet 50 mcg PO DAILY RF: 0 fluticasone propion-salmeterol [Advair Diskus] 100-50 mcg/dose Blister With Device 1 puff INHALATION BID RF: 0 metformin 500 mg Tablet Extended Release 24 Hr 500 mg PO TID RF: 0 tramadol 50 mg Tablet 100 mg PO DAILY RF: 0 glipizide 5 mg Tablet 5 mg PO DAILY RF: 0 acetaminophen [Tylenol Extra Strength] 500 mg Tablet 1,000 mg PO DAILY RF: 0 salmeterol 50 mcg/dose Blister With Device 1 inh INHALATION Q12H RF: 0 montelukast 10 mg Tablet 10 mg PO QPM RF: 0 furosemide 20 mg Tablet 10 mg PO DAILY PRN (Reason: Edema) RF: 0 gabapentin 100 mg Capsule 200 mg PO BEDTIME RF: 0 loratadine 10 mg Tablet 10 mg PO DAILY RF: 0 rosuvastatin 5 mg Tablet 5 mg PO Q OTHER DAY RF: 0 Referrals: Adriana Singh MD [Primary Care Provider] -
[2021-04-05 15:49] VITALS: BP 179/99; PULSE 85; RESP 16; O2SAT 98
== END 2021-04-05 15:50 | disposition home or self-care (01) ==
PROVIDERS: Emergency Provider Emergency Medicine; PCP Internal Medicine
DX: R04.0 Epistaxis (principal)
CPT/HCPCS: 30901; 99282; A9270

== ENCOUNTER 2021-04-08 14:33 | Emergency (ER) | payer MEDICARE, OTHER, SELFPAY ==
[2021-04-08 15:29] VITALS: BP 199/98; PULSE 81; O2SAT 96
[2021-04-08 15:32] VITALS: BP 199/98; PULSE 81; RESP 18; TEMP 36.7; O2SAT 96; BMI 28.8
--- NOTE | 2021-04-08 15:35 | DI.CT.S_ITS ---
PROCEDURE: CT HEAD/BRAIN WO CON INDICATIONS: Head injury TECHNIQUE: Noncontrast 4.5 mm thick angled axial sections acquired from the foramen magnum to the vertex, with coronal and sagittal reformats. For radiation dose reduction, the following was used: automated exposure control, adjustment of mA and/or kV according to patient size. COMPARISON: None. FINDINGS: Image quality: Excellent. CSF spaces: Basal cisterns are patent. No extra-axial fluid collections. The ventricles are symmetric in size and shape. Brain: No intracranial bleeds or masses. There is cerebral volume loss for age, with resultant ventricular and sulcal prominence. There are periventricular and deep white matter chronic small vessel ischemic changes. There is intracranial internal carotid artery atherosclerosis. Skull and face: Calvarium and visualized facial bones appear intact, without suspicious lesions. Sinuses: Visualized sinuses and mastoids are clear. IMPRESSION: No acute disease found, no intracranial hemorrhage seen. Dictated by: Sandip Hirsch M.D. on 04/08/2021 at 15:56 Approved by: Sandip Hirshc M.D. on 04/08/2021 at 16:00
--- NOTE | 2021-04-08 17:07 | ED_ITS ---
HPI - Head Injury General Chief complaint: Head Injury Stated complaint: FELL, HIT HEAD ON CONCRETE Time Seen by Provider: 04/08/21 16:08 Source: patient Mode of arrival: Ambulatory Limitations: no limitations History of Present Illness HPI Narrative: 80-year-old woman with a history of diabetes and hypertension was helping a friend of hers in the emergency room back into her car when the patient herself stepped back, stumbled over her own shoe and fell backward hitting the occiput of her head. She is on aspirin but no other blood thinners. She did not lose consciousness. She would not have come to the emergency room voluntarily but because this happened on hospital property read outside the emergency room door she was strongly encouraged to come in for further evaluation. She has no complaints of neck pain back pain hip pain or any extremity pain. Related Data Home Medications Medication Instructions Recorded Confirmed fluticasone propion-salmeterol 1 puff INHALATION BID 02/17/19 04/07/19 [Advair Diskus] glipizide 5 mg PO DAILY 02/17/19 04/07/19 hydralazine 25 mg PO BID 02/17/19 04/07/19 levothyroxine 50 mcg PO DAILY 02/17/19 04/07/19 metformin 500 mg PO TID 02/17/19 04/07/19 tramadol 100 mg PO DAILY 02/17/19 04/07/19 acetaminophen [Tylenol Extra 1,000 mg PO DAILY 04/07/19 04/07/19 Strength] furosemide 10 mg PO DAILY PRN 04/07/19 04/07/19 gabapentin 200 mg PO BEDTIME 04/07/19 04/07/19 loratadine 10 mg PO DAILY 04/07/19 04/07/19 montelukast 10 mg PO QPM 04/07/19 04/07/19 rosuvastatin 5 mg PO Q OTHER DAY 04/07/19 04/07/19 salmeterol 1 inh INHALATION Q12H 04/07/19 04/07/19 Allergies Allergy/AdvReac Type Severity Reaction Status Date / Time No Known Drug Allergies Allergy Verified 04/08/21 15:32 Review of Systems Review of Systems Narrative: Remainder of complete review of systems is otherwise unremarkable except for that included in the HPI. Patient History Medical History Diabetes Hypertension Seasonal allergies Surgical History History of tonsillectomy and adenoidectomy Social History household members: none Smoking Status: Never smoker alcohol intake: never substance use type: does not use additional social history: Social history and family history are otherwise noncontributory Smoking Status: Never smoker Substance Use Type: does not use Exam Narrative Exam Narrative: General: Healthy appearing, in no acute distress. Able to give a complete and coherent history. Well-nourished well-developed HEENT: Moist mucous membranes, normal sclera with reactive pupils, contusion to the occiput without significant abrasion or laceration. She is tender at the point of obvious 1st contact with the pavement but no signs of skull fracture. Neck: supple, no midline cervical tenderness Respiratory: Lungs are clear to auscultation, no wheezing no rales no rhonchi. Full and symmetrical air movement Cardiac: Regular rate and rhythm no murmurs no bruits Abdomen: Soft, nontender, good bowel tones, no flank pain Skin: Warm and dry, no rashes Neurologic: Grossly neurologically intact with no obvious asymmetries or abnormalities Extremities: No trauma, well perfused Psych: Cooperative, appropriate insight and affect Initial Vital Signs Initial Vital Signs: Vital Signs Pulse Rate 81 04/08/21 15:29 Blood Pressure 199/98 H 04/08/21 15:29 Pulse Oximetry 96 04/08/21 15:29 Course Orders Ordered: ED Orders 04/08/21 15:35 CT head/brain wo con Stat Vital Signs Vital signs: Vital Signs - 8 hr 04/08/21 15:29 04/08/21 15:32 Temperature 98.1 F Pulse Rate 81 81 Respiratory Rate 18 Blood Pressure 199/98 H 199/98 H Pulse Oximetry 96 96 MDM - Head Injury Imaging Data CT scan - head: Radiologist's Impression: FINDINGS: Image quality: Excellent. CSF spaces: Basal cisterns are patent. No extra-axial fluid collections. The ventricles are symmetric in size and shape. Brain: No intracranial bleeds or masses. There is cerebral volume loss for age, with resultant ventricular and sulcal prominence. There are periventricular and deep white matter chronic small vessel ischemic changes. There is intracranial internal carotid artery atherosclerosis. Skull and face: Calvarium and visualized facial bones appear intact, without suspicious lesions. Sinuses: Visualized sinuses and mastoids are clear. IMPRESSION: No acute disease found, no intracranial hemorrhage seen. Dictated by: Sandip Hirsch M.D. on 04/08/2021 at 15:56 MDM Narrative Medical decision making narrative: Emergency Medicine: Utilization of CT for Minor Blunt Head Trauma (Adult) Patient is 18 or older, presenting with minor blunt head trauma. Head CT was ordered by an emergency home care consultant for trauma because Reasons: Patient is 65 or older Patient taking anticoagulant medication Patient has severe headache 80-year-old woman who stumbled backward and fell landing on her occiput while helping another friend into a car. No loss of consciousness, no cervical pain, no complaints of injury aside from tenderness at the site of impact over the occiput. CT scan of the head does not show any intracranial hemorrhage. She states that she has tramadol and Tylenol available at home declines any pain medication in the emergency department. She is alert, appropriate, no neurologic dysfunction with steady gait and is safe for home discharge. Discharge Plan Departure Patient Disposition: Home Clinical Impression: Elevated blood pressure reading Concussion without loss of consciousness Qualifiers: Encounter type: initial encounter Qualified Code(s): S06.0X0A - Concussion without loss of consciousness, initial encounter Instructions: DI for Closed Head Injury Activity Restrictions/Additional Instructions: Thank you for coming in today I am so sorry that you had this fall. I am very glad that there is nothing more serious than a goose egg on the back of your head and headache. If he notices new areas of concern over the next 1-2 days, please feel free to return for further evaluation Please use the tramadol and Tylenol that you have available at home to help with pain as needed Your blood pressure was elevated in the emergency department. I suspect that this is related to pain as well as frustration with the fact that you fell and needed to return yet again to the emergency department. Please do keep track of this when you get home and contact Dr. Singh if the numbers remain elevated I wish you the best Prescriptions: No Action hydralazine 25 mg Tablet 25 mg PO BID RF: 0 levothyroxine 50 mcg Tablet 50 mcg PO DAILY RF: 0 fluticasone propion-salmeterol [Advair Diskus] 100-50 mcg/dose Blister With Device 1 puff INHALATION BID RF: 0 metformin 500 mg Tablet Extended Release 24 Hr 500 mg PO TID RF: 0 tramadol 50 mg Tablet 100 mg PO DAILY RF: 0 glipizide 5 mg Tablet 5 mg PO DAILY RF: 0 acetaminophen [Tylenol Extra Strength] 500 mg Tablet 1,000 mg PO DAILY RF: 0 salmeterol 50 mcg/dose Blister With Device 1 inh INHALATION Q12H RF: 0 montelukast 10 mg Tablet 10 mg PO QPM RF: 0 furosemide 20 mg Tablet 10 mg PO DAILY PRN (Reason: Edema) RF: 0 gabapentin 100 mg Capsule 200 mg PO BEDTIME RF: 0 loratadine 10 mg Tablet 10 mg PO DAILY RF: 0 rosuvastatin 5 mg Tablet 5 mg PO Q OTHER DAY RF: 0 Referrals: Adriana Singh MD [Primary Care Provider] -
[2021-04-08 17:18] VITALS: BP 194/91; PULSE 84; RESP 14; O2SAT 96
== END 2021-04-08 17:21 | disposition home or self-care (01) ==
PROVIDERS: Emergency Provider Emergency Medicine; PCP Internal Medicine
DX: S06.0X0A Concussion without loss of consciousness, initial encounter (principal); R03.0 Elevated blood-pressure reading, without diagnosis of hypertension; W22.8XXA Striking against or struck by other objects, initial encounter
CPT/HCPCS: 70450; 99283; 99284

== ENCOUNTER → 2022-04-01 11:56 | Outpatient (CLI) | payer MEDICARE, OTHER, SELFPAY ==
[2022-04-01 12:26] LABS: COVID19 -Nasal RAPID Negative (Negative)
== END ==
PROVIDERS: PCP Internal Medicine; Visit Provider Physician Assistant
DX: Z20.822 Contact with and (suspected) exposure to COVID-19 (principal)
CPT/HCPCS: 87635

== ENCOUNTER → 2022-04-01 12:02 | Outpatient (CLI) | payer MEDICARE, OTHER, SELFPAY ==
--- NOTE | 2022-04-01 12:05 | DI.RAD.S_ITS ---
PROCEDURE: XR CHEST 2V INDICATIONS: cough, sweats, concern for PNA TECHNIQUE: 2 views of the chest were acquired. COMPARISON: [facility], CHEST 2 VIEW, 05/23/2017, 8:32. [facility], CHEST 2 VIEW, 02/18/2018, 12:37. FINDINGS: Surgical changes and devices: None. Lungs and pleura: An incomplete inspiratory result is noted, causing a crowded appearance to the lung markings. No focal infiltrates are seen. No pneumothorax or significant pleural effusions are seen. Mediastinum: The cardiac contours are within normal limits. The aorta demonstrates calcification and tortuosity. Bones and chest wall: No suspicious bony abnormalities. Accentuated thoracic kyphosis is seen. Age-appropriate bony degenerative changes are seen. Mild levoconvex scoliotic curvature is noted. Soft tissues appear unremarkable. IMPRESSION: No focal infiltrates are seen on this study with an incomplete inspiratory result. If there is clinical concern for a developing pulmonary process, a short-term followup chest series (with PA and lateral views, performed in deep inspiration) is suggested for further evaluation. Dictated by: Cortes Alfaro M.D. on 04/01/2022 at 11:54 Approved by: Cortes Alfaro M.D. on 04/01/2022 at 11:55
== END ==
PROVIDERS: PCP Internal Medicine; Referring Provider Physician Assistant; Visit Provider Physician Assistant
DX: J06.9 Acute upper respiratory infection, unspecified (principal); Z20.822 Contact with and (suspected) exposure to COVID-19
CPT/HCPCS: 71046; 87635

== ENCOUNTER → 2022-04-04 14:07 | Outpatient (CLI) | payer MEDICARE, OTHER, SELFPAY ==
[2022-04-04 15:07] LABS: Influenza A - CEPHEID Flu A POSITIVE (NEGATIVE); Influenza B - CEPHEID Flu B NEGATIVE (NEGATIVE)
== END ==
PROVIDERS: PCP Internal Medicine; Visit Provider Physician Assistant
DX: R05.9 Cough, unspecified (principal)
CPT/HCPCS: 87502

== ENCOUNTER → 2022-10-02 15:21 | Outpatient (CLI) | payer MEDICARE, OTHER, SELFPAY ==
[2022-10-02 15:51] LABS: Alanine Aminotransferase 17 IU/L (<35); Albumin 3.9 g/dL (3.5-5.0); Albumin Globulin Ratio 1.5 (1.0-2.8); Alkaline Phosphatase 59 U/L (38-126); Aspartate Aminotransferase 19 IU/L (14-36); Bilirubin Total 0.6 mg/dL (0.2-1.3); Blood Urea Nitrogen 13 mg/dL (7-17); Calcium 8.9 mg/dL (8.4-10.2); Carbon Dioxide 28 mmol/L (22-32); Chloride 105 mmol/L (98-107); Estimated Glomerular Filt Rate > 60 mL/min (>60); Globulin 2.6 g/dL (1.7-4.1); Glucose 83 mg/dL (80-110); HEMOLYSIS < 15 (0-50); Hemoglobin A1C% w Est Avg Glu 5.6 % (4.0-6.0); Sodium 140 mmol/L (137-145); Total Protein 6.5 g/dL (6.3-8.2); Triglycerides 95 mg/dL (35-150)
[2022-10-02 15:52] LABS: Cholesterol 132 mg/dL (140-199); HDL Cholesterol 54 mg/dL (40-60); LDL Cholesterol Calculated 59 mg/dL (<100)
[2022-10-02 16:24] LABS: TSH w/ Reflex to FT4 3.45 uIU/mL (0.47-4.68)
== END ==
PROVIDERS: PCP Family Medicine; Referring Provider Family Medicine; Visit Provider Family Medicine
DX: E11.9 Type 2 diabetes mellitus without complications (principal); E03.9 Hypothyroidism, unspecified
CPT/HCPCS: 36415; 80053; 80061; 83036; 84443

== ENCOUNTER → 2022-10-03 07:06 | Outpatient (CLI) | payer MEDICARE, OTHER, SELFPAY ==
[2022-10-03 08:26] LABS: Creatinine Urine Random 156.3 mg/dL
[2022-10-03 08:30] LABS: Microalbumi Creatinin Ratio Ur 38.3 ug/mg CR (<30)
== END ==
PROVIDERS: PCP Family Medicine; Referring Provider Family Medicine; Visit Provider Family Medicine
DX: E03.9 Hypothyroidism, unspecified (principal); E11.9 Type 2 diabetes mellitus without complications
CPT/HCPCS: 36415; 82043; 82570

== ENCOUNTER 2023-01-28 09:45 | Outpatient (RCR) | payer MEDICARE, OTHER, SELFPAY ==
--- NOTE | 2022-12-03 16:45 | PT.OIE ---
Current Diagnoses Muscle weakness (generalized) (12/03/22) Unsteadiness on feet (12/03/22) Past Medical History (Last Updated 10/30/22 @ 08:15 by Aquiles Martin DO) Asthma Benign essential HTN Fibromyalgia Gait instability Hyperlipidemia Hypertension Hypothyroid Seasonal allergies Type 2 diabetes mellitus without complication, with no history of insulin use Past Surgical History (Last Reviewed 04/01/22 @ 11:36 by Aliza Lobo PA-C) History of tonsillectomy and adenoidectomy Visit Care Team Role Provider Type Aquiles Martin DO Attending Provider Physician Family Provider Primary Care Provider Referring Provider Specialty: [facility] Address: [address] [place] [address], [address], [address] Phone: Fax: Email: [email or web address] [facility] Initial Evaluation PT-OP-A Visit Information Start: 12/03/22 17:39 Freq: Status: Active Protocol: Document 12/03/22 16:00 DCW (Rec: 12/03/22 17:50 DCW [id number]) Out-Patient Physical Therapy Visit Information Visit Information Visit Type Initial Evaluation Visit Start Time 16:00 Visit Stop Time 16:45 Total Visit Minutes 45 Visit Number 1 Number of BOOM OPERATOR Visits 0 Evaluation Information Evaluation Date 12/03/22 PT-OP-B Current Condition Start: 12/03/22 17:39 Freq: Status: Active Protocol: Document 12/03/22 16:00 DCW (Rec: 12/03/22 17:50 DCW [id number]) Current Condition History of Current Condition Onset Date General worsening over last few years Current Complaints Fear of falling, decreased balance, weakness History of Current Condition Pt is an 82 year old female presenting with a worsening history of imbalance, fear of falling, LE weakness, and general deconditioning. Pt reports she tries to stay very active, and tries to keep herself busy, however feels like she has just started losing her balance and strength overall. Pt typically uses trekking poles for community ambulation. Has had a couple of falls, no injuries , believes her most recent fall was ~3 months ago. Pt able to get herself up off the floor, notes she learned how to get up by skiing, which she did often from the ages of 62 -72. Treatment Goals Patient/Caregiver Goals I want to feel more stable, to be more reliant on myself, to feel more comfortable getting out and going for walks by myself. PT-OP-C Subjective Start: 12/03/22 17:39 Freq: Status: Active Protocol: Document 12/03/22 16:00 DCW (Rec: 12/03/22 17:50 DCW [id number]) OP-PT Subjective Patient Comments Patient Comments I'm really getting to the point where I am having some increased anxiety about falling. PT-OP-D Balance Start: 12/03/22 17:39 Freq: Status: Active Protocol: Document 12/03/22 16:00 DCW (Rec: 12/03/22 17:50 DCW [id number]) Balance Tests Clay Balance Test Clay Balance Test Score 53/56 Clay Impairment Rating 1 to 19% Impaired (Score 45-55 ) Clay Balance Assessment Evaluation Sitting to Standing Ability Independent w/out Hands Unsupported Stance Safely- 2 minutes Sitting Unsupported, Feet on Floor Safely- 2 minutes Standing to Sitting Ability Safely, Minimal Hand Use Transfer Ability Safely, Minimal Hand Use Unsupported Stance- Eyes Closed Safely, 10 seconds Unsupported Stance- Eyes Open Independent, 1 minute Reaching Forward Standing Safely, 5 inches Pick- Up Object From Floor Independent/Safe Look Behind Shoulder - Standing Shifts Weight Well Turning 360 Degrees Turns Bilateral, < 4 secs Unsupported Stance, Alternating Feet on (I)- 8 Steps in 20 secs Stair Unsupported Tandem Stance Holds Tandem- 30 seconds Unilateral Leg Stance Lifts Leg/Holds 5-10 secs Total Score Clay Total Score (out of 56 points) 53 Clay Impairment Rating 1 to 19% Impaired (Score 45-55 ) PT-OP-E Functional Tests Start: 12/03/22 17:39 Freq: Status: Active Protocol: Document 12/03/22 16:00 DCW (Rec: 12/03/22 17:50 DCW [id number]) Functional Tests Dynamic Gait Index (DGI) Score 21/24 DGI Impairment Rating 1 to <20% Impaired (Score 20- 23) Functional Gait Assessment Score 26/30 Functional Gait Assessment Impairment 1 to <20% Impaired (Score 25- Rating 29) PT-OP-M Strength Start: 12/03/22 17:39 Freq: Status: Active Protocol: Document 12/03/22 16:00 DCW (Rec: 12/03/22 17:50 DCW [id number]) Hip Strength Hip Manual Muscle Testing Right Flexion (L2) 3+ Fair+ Abduction 4- Good- Adduction 3+ Fair+ External Rotation 4 Good Internal Rotation 4 Good Left Flexion (L2) 3+ Fair+ Abduction 4- Good- Adduction 3+ Fair+ External Rotation 4 Good Internal Rotation 4 Good Knee Strength Knee Manual Muscle Testing Right Flexion (S2) 4 Good Extension (L3) 4 Good Left Flexion (S2) 4 Good Extension (L3) 4 Good Ankle/Foot Strength Ankle and Foot Manual Muscle Testing Right Dorsiflexion (L4) 4 Good Left Dorsiflexion (L4) 4 Good PT-OP-T Assessment and Plan Start: 12/03/22 17:39 Freq: Status: Active Protocol: Document 12/03/22 16:00 DCW (Rec: 12/04/22 09:43 DCW [id number]) Physical Therapy Assessment Rehab Potential Rehabilitation Potential Excellent Evaluation Complexity Number of Personal Factors/Comorbidities 1-2 Number of Body Systems Impaired 1-2 Clinical Presentation at Evaluation Stable Impairments Impairments Balance,Functional Activities, Functional Mobility,Strength Other Concerns Fall Risk Yes, per increased fear of falling Goals Two Impairment Pt exhibits LE weakness, specifically in bilateral hips Penitentiary Goal (LTG) Pt to increase hip strength to at least 4/5 in all planes to improve stability in ambulation LTG Duration 01/31/23 One Impairment Pt does not have an appropriate home exercise program Short Term Goal (STG) Pt to be independent and compliant with an appropriate HEP STG Duration 12/31/22 Assessment Summary Assessment Pt actually presents in a low falls risk category with both Clay Balance testing and DGI/ FGA. Pt has higher than average scores for her age. However, pt does have a history of falls, as well as a significant discomfort with balance and a fairly significant fear of falling, which has been shown to actually increase falls risk. Additionally, pt does exhibit significant weakness throughout her lower extremities, particularly in her hips. Pt will benefit from skilled therapy focusing on improving leg and core strength, as well as balance training in order to improve overall confidence and decrease fear of falling. Physical Therapy Plan Frequency and Duration Frequency of Treatment 2x/Week Plan of Care Start Date 12/03/22 Plan of Care End Date 01/31/23 Therapeutic Interventions Therapeutic Interventions Balance Training,Gait Training ,Home Exercise Program,Manual Therapy,Neuromuscular Re- education,Patient/Caregiver Education,Self-Care/Home Management,Soft Tissue Mobilization,Therapeutic Activities,Therapeutic Exercises Next Visit Focus/Plan Next Note Type Treatment Note Next Visit Plan LE strengthening, balance training
--- NOTE | 2022-12-03 16:45 | PT.OPPOC ---
Physical, Occupational & Speech Therapy At [facility] Current Diagnoses Muscle weakness (generalized) (12/03/22) Unsteadiness on feet (12/03/22) Visit Care Team Role Provider Type Aquiles Martin DO Attending Provider Physician Family Provider Primary Care Provider Referring Provider Specialty: [facility] Practice Address: [address] [place] [address], [address], [address] Phone: Fax: Email: [email or web address] Plan Of Care PT-OP-T Assessment and Plan Start: 12/03/22 17:39 Freq: Status: Active Protocol: Document 12/03/22 16:00 DCW (Rec: 12/04/22 09:43 DCW [id number]) Physical Therapy Assessment Rehab Potential Rehabilitation Potential Excellent Evaluation Complexity Number of Personal Factors/Comorbidities 1-2 Number of Body Systems Impaired 1-2 Clinical Presentation at Evaluation Stable Impairments Impairments Balance,Functional Activities, Functional Mobility,Strength Other Concerns Fall Risk Yes, per increased fear of falling Goals Two Impairment Pt exhibits LE weakness, specifically in bilateral hips Intermediate Goal (LTG) Pt to increase hip strength to at least 4/5 in all planes to improve stability in ambulation LTG Duration 01/31/23 One Impairment Pt does not have an appropriate home exercise program Short Term Goal (STG) Pt to be independent and compliant with an appropriate HEP STG Duration 12/31/22 Assessment Summary Assessment Pt actually presents in a low falls risk category with both Clay Balance testing and DGI/ FGA. Pt has higher than average scores for her age. However, pt does have a history of falls, as well as a significant discomfort with balance and a fairly significant fear of falling, which has been shown to actually increase falls risk. Additionally, pt does exhibit significant weakness throughout her lower extremities, particularly in her hips. Pt will benefit from skilled therapy focusing on improving leg and core strength, as well as balance training in order to improve overall confidence and decrease fear of falling. Physical Therapy Plan Frequency and Duration Frequency of Treatment 2x/Week Plan of Care Start Date 12/03/22 Plan of Care End Date 01/31/23 Therapeutic Interventions Therapeutic Interventions Balance Training,Gait Training ,Home Exercise Program,Manual Therapy,Neuromuscular Re- education,Patient/Caregiver Education,Self-Care/Home Management,Soft Tissue Mobilization,Therapeutic Activities,Therapeutic Exercises Next Visit Focus/Plan Next Note Type Treatment Note Next Visit Plan LE strengthening, balance training Plan of Care Dates Plan of Care Start Date 12/03/22 Plan of Care End Date 01/31/23 Electronically Signed by: Saw Rios, PT 12/04/22 0943 If you are in agreement with this Plan of Care, please return a signed and dated copy. I have reviewed this Plan of Care and certify that the skilled therapy services above are required to meet the patient?s needs. Physician Signature Date Printed Name and Credentials Clinical Instructor Signature Printed Name and Credentials
--- NOTE | 2022-12-03 16:46 | PT.OPPOC ---
Physical, Occupational & Speech Therapy At Current Diagnoses Muscle weakness (generalized) (12/03/22) Unsteadiness on feet (12/03/22) Visit Care Team Role Provider Type Aquiles Martin DO Attending Provider Physician Family Provider Primary Care Provider Referring Provider Specialty: [facility] Practice Address: [address] [place] [address], [address], [address] Phone: Fax: Email: [email or web address] Plan Of Care PT-OP-T Assessment and Plan Start: 12/03/22 17:39 Freq: Status: Active Protocol: Document 12/03/22 16:00 DCW (Rec: 12/04/22 09:43 DCW [id number]) Physical Therapy Assessment Rehab Potential Rehabilitation Potential Excellent Evaluation Complexity Number of Personal Factors/Comorbidities 1-2 Number of Body Systems Impaired 1-2 Clinical Presentation at Evaluation Stable Impairments Impairments Balance,Functional Activities, Functional Mobility,Strength Other Concerns Fall Risk Yes, per increased fear of falling Goals Two Impairment Pt exhibits LE weakness, specifically in bilateral hips [facility] Goal (LTG) Pt to increase hip strength to at least 4/5 in all planes to improve stability in ambulation LTG Duration 01/31/23 One Impairment Pt does not have an appropriate home exercise program Short Term Goal (STG) Pt to be independent and compliant with an appropriate HEP STG Duration 12/31/22 Assessment Summary Assessment Pt actually presents in a low falls risk category with both Clay Balance testing and DGI/ FGA. Pt has higher than average scores for her age. However, pt does have a history of falls, as well as a significant discomfort with balance and a fairly significant fear of falling, which has been shown to actually increase falls risk. Additionally, pt does exhibit significant weakness throughout her lower extremities, particularly in her hips. Pt will benefit from skilled therapy focusing on improving leg and core strength, as well as balance training in order to improve overall confidence and decrease fear of falling. Physical Therapy Plan Frequency and Duration Frequency of Treatment 2x/Week Plan of Care Start Date 12/03/22 Plan of Care End Date 01/31/23 Therapeutic Interventions Therapeutic Interventions Balance Training,Gait Training ,Home Exercise Program,Manual Therapy,Neuromuscular Re- education,Patient/Caregiver Education,Self-Care/Home Management,Soft Tissue Mobilization,Therapeutic Activities,Therapeutic Exercises Next Visit Focus/Plan Next Note Type Treatment Note Next Visit Plan LE strengthening, balance training Plan of Care Dates Plan of Care Start Date 12/03/22 Plan of Care End Date 01/31/23 Electronically Signed by: Saw Rios, PT 12/04/22 0944 If you are in agreement with this Plan of Care, please return a signed and dated copy. I have reviewed this Plan of Care and certify that the skilled therapy services above are required to meet the patient?s needs. Physician Signature Date Printed Name and Credentials Clinical Instructor Signature Printed Name and Credentials
--- NOTE | 2022-12-05 11:59 | PT.OTN ---
Current Diagnoses Muscle weakness (generalized) (12/05/22) Unsteadiness on feet (12/05/22) Physical Therapy Treatment Note PT-OP-A Visit Information Start: 12/03/22 17:39 Freq: Status: Active Protocol: Document 12/05/22 11:15 DCW (Rec: 12/05/22 11:59 DCW [id number]) Out-Patient Physical Therapy Visit Information Visit Information Visit Type Treatment Note Visit Start Time 11:15 Visit Stop Time 12:00 Total Visit Minutes 45 Visit Number 2 Number of PATTERN PERFORATING MACHINE OPERATOR Visits 0 Evaluation Information Evaluation Date 12/03/22 PT-OP-B Current Condition Start: 12/03/22 17:39 Freq: Status: Active Protocol: Document 12/03/22 16:00 DCW (Rec: 12/03/22 17:50 DCW [id number]) Current Condition History of Current Condition Onset Date General worsening over last few years Current Complaints Fear of falling, decreased balance, weakness History of Current Condition Pt is an 82 year old female presenting with a worsening history of imbalance, fear of falling, LE weakness, and general deconditioning. Pt reports she tries to stay very active, and tries to keep herself busy, however feels like she has just started losing her balance and strength overall. Pt typically uses trekking poles for community ambulation. Has had a couple of falls, no injuries , believes her most recent fall was ~3 months ago. Pt able to get herself up off the floor, notes she learned how to get up by skiing, which she did often from the ages of 62 -72. Treatment Goals Patient/Caregiver Goals I want to feel more stable, to be more reliant on myself, to feel more comfortable getting out and going for walks by myself. PT-OP-C Subjective Start: 12/03/22 17:39 Freq: Status: Active Protocol: Document 12/05/22 11:15 DCW (Rec: 12/05/22 11:59 DCW [id number]) OP-PT Subjective Patient Comments Patient Comments I've been practicing standing on one leg, it's not that great. PT-OP-D Balance Start: 12/03/22 17:39 Freq: Status: Active Protocol: Document 12/03/22 16:00 DCW (Rec: 12/03/22 17:50 DCW [id number]) Balance Tests Clay Balance Test Clay Balance Test Score 53/56 Clay Impairment Rating 1 to 19% Impaired (Score 45-55 ) Clay Balance Assessment Evaluation Sitting to Standing Ability Independent w/out Hands Unsupported Stance Safely- 2 minutes Sitting Unsupported, Feet on Floor Safely- 2 minutes Standing to Sitting Ability Safely, Minimal Hand Use Transfer Ability Safely, Minimal Hand Use Unsupported Stance- Eyes Closed Safely, 10 seconds Unsupported Stance- Eyes Open Independent, 1 minute Reaching Forward Standing Safely, 5 inches Pick- Up Object From Floor Independent/Safe Look Behind Shoulder - Standing Shifts Weight Well Turning 360 Degrees Turns Bilateral, < 4 secs Unsupported Stance, Alternating Feet on (I)- 8 Steps in 20 secs Stair Unsupported Tandem Stance Holds Tandem- 30 seconds Unilateral Leg Stance Lifts Leg/Holds 5-10 secs Total Score Clay Total Score (out of 56 points) 53 Clay Impairment Rating 1 to 19% Impaired (Score 45-55 ) PT-OP-E Functional Tests Start: 12/03/22 17:39 Freq: Status: Active Protocol: Document 12/03/22 16:00 DCW (Rec: 12/03/22 17:50 [facility] [id number]) Functional Tests Dynamic Gait Index (DGI) Score 21/24 DGI Impairment Rating 1 to <20% Impaired (Score 20- 23) Functional Gait Assessment Score 26/30 Functional Gait Assessment Impairment 1 to <20% Impaired (Score 25- Rating 29) PT-OP-M Strength Start: 12/03/22 17:39 Freq: Status: Active Protocol: Document 12/03/22 16:00 DCW (Rec: 12/03/22 17:50 [facility] [id number]) Hip Strength Hip Manual Muscle Testing Right Flexion (L2) 3+ Fair+ Abduction 4- Good- Adduction 3+ Fair+ External Rotation 4 Good Internal Rotation 4 Good Left Flexion (L2) 3+ Fair+ Abduction 4- Good- Adduction 3+ Fair+ External Rotation 4 Good Internal Rotation 4 Good Knee Strength Knee Manual Muscle Testing Right Flexion (S2) 4 Good Extension (L3) 4 Good Left Flexion (S2) 4 Good Extension (L3) 4 Good Ankle/Foot Strength Ankle and Foot Manual Muscle Testing Right Dorsiflexion (L4) 4 Good Left Dorsiflexion (L4) 4 Good PT-OP-Q Treatments Start: 12/03/22 17:39 Freq: Status: Active Protocol: Document 12/05/22 11:15 DCW (Rec: 12/05/22 11:59 DCW [id number]) Cardio Equipment Recumbent Stepper (Sci-Fit) Duration (Minutes) 5 Resistance 2.5 Seat Position 7 Gym Equipment Shuttle Recovery Unilateral Squats Resistance 37# Shuttle Recovery Platform Stable Bilateral Squats Resistance 67# Shuttle Recovery Platform Stable Therapeutic Exercises Standing Exercises Toe-taps Standing Exercise Name Toe-taps Side bilateral Resistance 5# Equipment Used 6 step Reps/Minutes 2x10 Hip Extension Standing Exercise Name Extension Side bilateral Resistance Red Other Exercises Resisted Ambulation Other Exercise Name Resisted Side-stepping Resistance Red Neuro Re-Education Treatment Balance Activities Tilt Board Details Stabilization, DF/PF, lateral shift SLS Details SLS Equipment // bars Foam Stance Details Staggered Surface Blue foam Equipment // bars Comments EO/EC PT-OP-T Assessment and Plan Start: 12/03/22 17:39 Freq: Status: Active Protocol: Document 12/05/22 11:15 DCW (Rec: 12/05/22 11:59 DCW [id number]) Physical Therapy Assessment Impairments Impairments Balance,Functional Activities, Functional Mobility,Strength Goals Two Impairment Pt exhibits LE weakness, specifically in bilateral hips Detention Goal (LTG) Pt to increase hip strength to at least 4/5 in all planes to improve stability in ambulation LTG Duration 01/31/23 One Impairment Pt does not have an appropriate home exercise program Short Term Goal (STG) Pt to be independent and compliant with an appropriate HEP STG Duration 12/31/22 Assessment Summary Assessment Pt tolerated treatment very well today, did have a little fatigue in hips and ankles with strengthening exercises, but overall was very positive with all activities. If pt does not have too much fatigue or muscle soreness following today's visit, will give her more LE strengthening activities for an HEP. Physical Therapy Plan Frequency and Duration Frequency of Treatment 2x/Week Plan of Care Start Date 12/03/22 Plan of Care End Date 01/31/23 Therapeutic Interventions Therapeutic Interventions Balance Training,Gait Training ,Home Exercise Program,Manual Therapy,Neuromuscular Re- education,Patient/Caregiver Education,Self-Care/Home Management,Soft Tissue Mobilization,Therapeutic Activities,Therapeutic Exercises Next Visit Focus/Plan Next Note Type Treatment Note Next Visit Plan LE strengthening, balance training
--- NOTE | 2022-12-12 10:32 | PT.OTN ---
Current Diagnoses Muscle weakness (generalized) (12/12/22) Unsteadiness on feet (12/12/22) Physical Therapy Treatment Note PT-OP-A Visit Information Start: 12/03/22 17:39 Freq: Status: Active Protocol: Document 12/12/22 09:45 DCW (Rec: 12/12/22 10:32 DCW [id number]) Out-Patient Physical Therapy Visit Information Visit Information Visit Type Treatment Note Visit Start Time 09:45 Visit Stop Time 10:30 Total Visit Minutes 45 Visit Number 3 Number of DETECTIVE SUPERVISOR Visits 0 Evaluation Information Evaluation Date 12/03/22 PT-OP-B Current Condition Start: 12/03/22 17:39 Freq: Status: Active Protocol: Document 12/03/22 16:00 DCW (Rec: 12/03/22 17:50 DCW [id number]) Current Condition History of Current Condition Onset Date General worsening over last few years Current Complaints Fear of falling, decreased balance, weakness History of Current Condition Pt is an 82 year old female presenting with a worsening history of imbalance, fear of falling, LE weakness, and general deconditioning. Pt reports she tries to stay very active, and tries to keep herself busy, however feels like she has just started losing her balance and strength overall. Pt typically uses trekking poles for community ambulation. Has had a couple of falls, no injuries , believes her most recent fall was ~3 months ago. Pt able to get herself up off the floor, notes she learned how to get up by skiing, which she did often from the ages of 62 -72. Treatment Goals Patient/Caregiver Goals I want to feel more stable, to be more reliant on myself, to feel more comfortable getting out and going for walks by myself. PT-OP-C Subjective Start: 12/03/22 17:39 Freq: Status: Active Protocol: Document 12/12/22 09:45 DCW (Rec: 12/12/22 10:32 DCW [id number]) OP-PT Subjective Patient Comments Patient Comments I wasn't even sore after last visit. PT-OP-D Balance Start: 12/03/22 17:39 Freq: Status: Active Protocol: Document 12/03/22 16:00 DCW (Rec: 12/03/22 17:50 DCW [id number]) Balance Tests Clay Balance Test Clay Balance Test Score 53/56 Clay Impairment Rating 1 to 19% Impaired (Score 45-55 ) Clay Balance Assessment Evaluation Sitting to Standing Ability Independent w/out Hands Unsupported Stance Safely- 2 minutes Sitting Unsupported, Feet on Floor Safely- 2 minutes Standing to Sitting Ability Safely, Minimal Hand Use Transfer Ability Safely, Minimal Hand Use Unsupported Stance- Eyes Closed Safely, 10 seconds Unsupported Stance- Eyes Open Independent, 1 minute Reaching Forward Standing Safely, 5 inches Pick- Up Object From Floor Independent/Safe Look Behind Shoulder - Standing Shifts Weight Well Turning 360 Degrees Turns Bilateral, < 4 secs Unsupported Stance, Alternating Feet on (I)- 8 Steps in 20 secs Stair Unsupported Tandem Stance Holds Tandem- 30 seconds Unilateral Leg Stance Lifts Leg/Holds 5-10 secs Total Score Clay Total Score (out of 56 points) 53 Clay Impairment Rating 1 to 19% Impaired (Score 45-55 ) PT-OP-E Functional Tests Start: 12/03/22 17:39 Freq: Status: Active Protocol: Document 12/03/22 16:00 DCW (Rec: 12/03/22 17:50 DCW [id number]) Functional Tests Dynamic Gait Index (DGI) Score 21/24 DGI Impairment Rating 1 to <20% Impaired (Score 20- 23) Functional Gait Assessment Score 26/30 Functional Gait Assessment Impairment 1 to <20% Impaired (Score 25- Rating 29) PT-OP-M Strength Start: 12/03/22 17:39 Freq: Status: Active Protocol: Document 12/03/22 16:00 DCW (Rec: 12/03/22 17:50 DCW [id number]) Hip Strength Hip Manual Muscle Testing Right Flexion (L2) 3+ Fair+ Abduction 4- Good- Adduction 3+ Fair+ External Rotation 4 Good Internal Rotation 4 Good Left Flexion (L2) 3+ Fair+ Abduction 4- Good- Adduction 3+ Fair+ External Rotation 4 Good Internal Rotation 4 Good Knee Strength Knee Manual Muscle Testing Right Flexion (S2) 4 Good Extension (L3) 4 Good Left Flexion (S2) 4 Good Extension (L3) 4 Good Ankle/Foot Strength Ankle and Foot Manual Muscle Testing Right Dorsiflexion (L4) 4 Good Left Dorsiflexion (L4) 4 Good PT-OP-Q Treatments Start: 12/03/22 17:39 Freq: Status: Active Protocol: Document 12/12/22 09:45 DCW (Rec: 12/12/22 10:32 DCW [id number]) Cardio Equipment Recumbent Elliptical (Biodex) Duration (Minutes) 5 Resistance 4 Seat Position 2 Gym Equipment Shuttle Recovery Unilateral Squats Resistance 37# Shuttle Recovery Platform Stable Bilateral Squats Resistance 75# Shuttle Recovery Platform Stable Shuttle Balance Red Details WBOS, Staggered Therapeutic Exercises Standing Exercises Hip Extension Standing Exercise Name Extension Side bilateral Resistance Green Other Exercises Resisted Ambulation Other Exercise Name Resisted Side-stepping Resistance Green Neuro Re-Education Treatment Balance Activities Tandem Stance Details Tandem Stance SLS Details SLS Equipment // bars Foam Stance Details NBOS Surface Blue foam Equipment // bars Comments EO/EC PT-OP-T Assessment and Plan Start: 12/03/22 17:39 Freq: Status: Active Protocol: Document 12/12/22 09:45 DCW (Rec: 12/12/22 10:32 DCW [id number]) Physical Therapy Assessment Impairments Impairments Balance,Functional Activities, Functional Mobility,Strength Goals Two Impairment Pt exhibits LE weakness, specifically in bilateral hips People Greeter Goal (LTG) Pt to increase hip strength to at least 4/5 in all planes to improve stability in ambulation LTG Duration 01/31/23 One Impairment Pt does not have an appropriate home exercise program Short Term Goal (STG) Pt to be independent and compliant with an appropriate HEP STG Duration 12/31/22 Assessment Summary Assessment Pt continues to do very well, showed good ability to maintain upright posture on balance board, improvement with tandem stance and SLS since last week. Physical Therapy Plan Frequency and Duration Frequency of Treatment 2x/Week Plan of Care Start Date 12/03/22 Plan of Care End Date 01/31/23 Therapeutic Interventions Therapeutic Interventions Balance Training,Gait Training ,Home Exercise Program,Manual Therapy,Neuromuscular Re- education,Patient/Caregiver Education,Self-Care/Home Management,Soft Tissue Mobilization,Therapeutic Activities,Therapeutic Exercises Next Visit Focus/Plan Next Note Type Treatment Note Next Visit Plan LE strengthening, balance training
--- NOTE | 2022-12-17 11:14 | PT.OTN ---
Current Diagnoses Muscle weakness (generalized) (12/17/22) Unsteadiness on feet (12/17/22) Physical Therapy Treatment Note PT-OP-A Visit Information Start: 12/03/22 17:39 Freq: Status: Active Protocol: Document 12/17/22 10:30 DCW (Rec: 12/17/22 11:14 DCW [id number]) Out-Patient Physical Therapy Visit Information Visit Information Visit Type Treatment Note Visit Start Time 10:30 Visit Stop Time 11:15 Total Visit Minutes 45 Visit Number 4 Number of DIESEL ENGINE OPERATOR Visits 0 Evaluation Information Evaluation Date 12/03/22 PT-OP-B Current Condition Start: 12/03/22 17:39 Freq: Status: Active Protocol: Document 12/03/22 16:00 DCW (Rec: 12/03/22 17:50 DCW [id number]) Current Condition History of Current Condition Onset Date General worsening over last few years Current Complaints Fear of falling, decreased balance, weakness History of Current Condition Pt is an 82 year old female presenting with a worsening history of imbalance, fear of falling, LE weakness, and general deconditioning. Pt reports she tries to stay very active, and tries to keep herself busy, however feels like she has just started losing her balance and strength overall. Pt typically uses trekking poles for community ambulation. Has had a couple of falls, no injuries , believes her most recent fall was ~3 months ago. Pt able to get herself up off the floor, notes she learned how to get up by skiing, which she did often from the ages of 62 -72. Treatment Goals Patient/Caregiver Goals I want to feel more stable, to be more reliant on myself, to feel more comfortable getting out and going for walks by myself. PT-OP-C Subjective Start: 12/03/22 17:39 Freq: Status: Active Protocol: Document 12/17/22 10:30 DCW (Rec: 12/17/22 11:14 DCW [id number]) OP-PT Subjective Patient Comments Patient Comments Pt reports she is happy with how her rehab is going so far. PT-OP-D Balance Start: 12/03/22 17:39 Freq: Status: Active Protocol: Document 12/03/22 16:00 DCW (Rec: 12/03/22 17:50 DCW [id number]) Balance Tests Clay Balance Test Clay Balance Test Score 53/56 Clay Impairment Rating 1 to 19% Impaired (Score 45-55 ) Clay Balance Assessment Evaluation Sitting to Standing Ability Independent w/out Hands Unsupported Stance Safely- 2 minutes Sitting Unsupported, Feet on Floor Safely- 2 minutes Standing to Sitting Ability Safely, Minimal Hand Use Transfer Ability Safely, Minimal Hand Use Unsupported Stance- Eyes Closed Safely, 10 seconds Unsupported Stance- Eyes Open Independent, 1 minute Reaching Forward Standing Safely, 5 inches Pick- Up Object From Floor Independent/Safe Look Behind Shoulder - Standing Shifts Weight Well Turning 360 Degrees Turns Bilateral, < 4 secs Unsupported Stance, Alternating Feet on (I)- 8 Steps in 20 secs Stair Unsupported Tandem Stance Holds Tandem- 30 seconds Unilateral Leg Stance Lifts Leg/Holds 5-10 secs Total Score Clay Total Score (out of 56 points) 53 Clay Impairment Rating 1 to 19% Impaired (Score 45-55 ) PT-OP-E Functional Tests Start: 12/03/22 17:39 Freq: Status: Active Protocol: Document 12/03/22 16:00 DCW (Rec: 12/03/22 17:50 [facility] [id number]) Functional Tests Dynamic Gait Index (DGI) Score 21/24 DGI Impairment Rating 1 to <20% Impaired (Score 20- 23) Functional Gait Assessment Score 26/30 Functional Gait Assessment Impairment 1 to <20% Impaired (Score 25- Rating 29) PT-OP-M Strength Start: 12/03/22 17:39 Freq: Status: Active Protocol: Document 12/03/22 16:00 DCW (Rec: 12/03/22 17:50 [facility] [id number]) Hip Strength Hip Manual Muscle Testing Right Flexion (L2) 3+ Fair+ Abduction 4- Good- Adduction 3+ Fair+ External Rotation 4 Good Internal Rotation 4 Good Left Flexion (L2) 3+ Fair+ Abduction 4- Good- Adduction 3+ Fair+ External Rotation 4 Good Internal Rotation 4 Good Knee Strength Knee Manual Muscle Testing Right Flexion (S2) 4 Good Extension (L3) 4 Good Left Flexion (S2) 4 Good Extension (L3) 4 Good Ankle/Foot Strength Ankle and Foot Manual Muscle Testing Right Dorsiflexion (L4) 4 Good Left Dorsiflexion (L4) 4 Good PT-OP-Q Treatments Start: 12/03/22 17:39 Freq: Status: Active Protocol: Document 12/17/22 10:30 DCW (Rec: 12/17/22 11:14 DCW [id number]) Cardio Equipment Recumbent Elliptical (Biodex) Duration (Minutes) 5 Resistance 4 Seat Position 2 Gym Equipment Shuttle Recovery Unilateral Squats Resistance 50# Shuttle Recovery Platform Stable Bilateral Squats Resistance 87# Shuttle Recovery Platform Stable Shuttle Balance Red Details WBOS, Staggered Neuro Re-Education Treatment Balance Activities BOSU Details BOSU Stance Surface Blue Hurdles Details Hurdles Comments Fwd, Side-stepping Tandem Stance Details Tandem Stance Comments /c and /s head turns SLS Details SLS Equipment // bars PT-OP-T Assessment and Plan Start: 12/03/22 17:39 Freq: Status: Active Protocol: Document 12/17/22 10:30 DCW (Rec: 12/17/22 11:14 DCW [id number]) Physical Therapy Assessment Impairments Impairments Balance,Functional Activities, Functional Mobility,Strength Goals Two Impairment Pt exhibits LE weakness, specifically in bilateral hips Retirement Goal (LTG) Pt to increase hip strength to at least 4/5 in all planes to improve stability in ambulation LTG Duration 01/31/23 One Impairment Pt does not have an appropriate home exercise program Short Term Goal (STG) Pt to be independent and compliant with an appropriate HEP STG Duration 12/31/22 Assessment Summary Assessment Pt doing well implementing balance challenges with her HEP in a safe manner, showing improving confidence with her balance. Physical Therapy Plan Frequency and Duration Frequency of Treatment 2x/Week Plan of Care Start Date 12/03/22 Plan of Care End Date 01/31/23 Therapeutic Interventions Therapeutic Interventions Balance Training,Gait Training ,Home Exercise Program,Manual Therapy,Neuromuscular Re- education,Patient/Caregiver Education,Self-Care/Home Management,Soft Tissue Mobilization,Therapeutic Activities,Therapeutic Exercises Next Visit Focus/Plan Next Note Type Treatment Note Next Visit Plan LE strengthening, balance training
--- NOTE | 2022-12-19 10:29 | PT.OTN ---
Current Diagnoses Muscle weakness (generalized) (12/19/22) Unsteadiness on feet (12/19/22) Physical Therapy Treatment Note PT-OP-A Visit Information Start: 12/03/22 17:39 Freq: Status: Active Protocol: Document 12/19/22 09:45 DCW (Rec: 12/19/22 10:29 DCW [id number]) Out-Patient Physical Therapy Visit Information Visit Information Visit Type Treatment Note Visit Start Time 09:45 Visit Stop Time 10:30 Total Visit Minutes 45 Visit Number 5 Number of GEOPHYSICAL MANAGER Visits 0 Evaluation Information Evaluation Date 12/03/22 PT-OP-B Current Condition Start: 12/03/22 17:39 Freq: Status: Active Protocol: Document 12/03/22 16:00 DCW (Rec: 12/03/22 17:50 DCW [id number]) Current Condition History of Current Condition Onset Date General worsening over last few years Current Complaints Fear of falling, decreased balance, weakness History of Current Condition Pt is an 82 year old female presenting with a worsening history of imbalance, fear of falling, LE weakness, and general deconditioning. Pt reports she tries to stay very active, and tries to keep herself busy, however feels like she has just started losing her balance and strength overall. Pt typically uses trekking poles for community ambulation. Has had a couple of falls, no injuries , believes her most recent fall was ~3 months ago. Pt able to get herself up off the floor, notes she learned how to get up by skiing, which she did often from the ages of 62 -72. Treatment Goals Patient/Caregiver Goals I want to feel more stable, to be more reliant on myself, to feel more comfortable getting out and going for walks by myself. PT-OP-C Subjective Start: 12/03/22 17:39 Freq: Status: Active Protocol: Document 12/19/22 09:45 DCW (Rec: 12/19/22 10:29 DCW [id number]) OP-PT Subjective Patient Comments Patient Comments It's feeling good. I'm doing some practice at home, standing on one leg is still not going well, but I tried those head turns, and that's really hard, I have never tried to do that before. PT-OP-D Balance Start: 12/03/22 17:39 Freq: Status: Active Protocol: Document 12/03/22 16:00 DCW (Rec: 12/03/22 17:50 DCW [id number]) Balance Tests Clay Balance Test Clay Balance Test Score 53/56 Clay Impairment Rating 1 to 19% Impaired (Score 45-55 ) Clay Balance Assessment Evaluation Sitting to Standing Ability Independent w/out Hands Unsupported Stance Safely- 2 minutes Sitting Unsupported, Feet on Floor Safely- 2 minutes Standing to Sitting Ability Safely, Minimal Hand Use Transfer Ability Safely, Minimal Hand Use Unsupported Stance- Eyes Closed Safely, 10 seconds Unsupported Stance- Eyes Open Independent, 1 minute Reaching Forward Standing Safely, 5 inches Pick- Up Object From Floor Independent/Safe Look Behind Shoulder - Standing Shifts Weight Well Turning 360 Degrees Turns Bilateral, < 4 secs Unsupported Stance, Alternating Feet on (I)- 8 Steps in 20 secs Stair Unsupported Tandem Stance Holds Tandem- 30 seconds Unilateral Leg Stance Lifts Leg/Holds 5-10 secs Total Score Clay Total Score (out of 56 points) 53 Clay Impairment Rating 1 to 19% Impaired (Score 45-55 ) PT-OP-E Functional Tests Start: 12/03/22 17:39 Freq: Status: Active Protocol: Document 12/03/22 16:00 DCW (Rec: 12/03/22 17:50 DCW [id number]) Functional Tests Dynamic Gait Index (DGI) Score 21/24 DGI Impairment Rating 1 to <20% Impaired (Score 20- 23) Functional Gait Assessment Score 26/30 Functional Gait Assessment Impairment 1 to <20% Impaired (Score 25- Rating 29) PT-OP-M Strength Start: 12/03/22 17:39 Freq: Status: Active Protocol: Document 12/03/22 16:00 DCW (Rec: 12/03/22 17:50 DCW [id number]) Hip Strength Hip Manual Muscle Testing Right Flexion (L2) 3+ Fair+ Abduction 4- Good- Adduction 3+ Fair+ External Rotation 4 Good Internal Rotation 4 Good Left Flexion (L2) 3+ Fair+ Abduction 4- Good- Adduction 3+ Fair+ External Rotation 4 Good Internal Rotation 4 Good Knee Strength Knee Manual Muscle Testing Right Flexion (S2) 4 Good Extension (L3) 4 Good Left Flexion (S2) 4 Good Extension (L3) 4 Good Ankle/Foot Strength Ankle and Foot Manual Muscle Testing Right Dorsiflexion (L4) 4 Good Left Dorsiflexion (L4) 4 Good PT-OP-Q Treatments Start: 12/03/22 17:39 Freq: Status: Active Protocol: Document 12/19/22 09:45 DCW (Rec: 12/19/22 10:29 DCW [id number]) Cardio Equipment Recumbent Elliptical (Biodex) Duration (Minutes) 5 Resistance 4 Seat Position 2 Gym Equipment Shuttle Recovery Unilateral Squats Resistance 50# Shuttle Recovery Platform Stable Bilateral Squats Resistance 87# Shuttle Recovery Platform Stable Shuttle Balance Red Details WBOS, Staggered, Lateral weight shift Therapeutic Exercises Standing Exercises Hip Extension Standing Exercise Name Extension Side bilateral Resistance Green Other Exercises Resisted Ambulation Other Exercise Name Resisted Side-stepping Resistance Green Neuro Re-Education Treatment Balance Activities SLS Details SLS Equipment // bars Foam Stance Details NBOS Surface Blue foam Equipment // bars Comments EO/EC PT-OP-T Assessment and Plan Start: 12/03/22 17:39 Freq: Status: Active Protocol: Document 12/19/22 09:45 DCW (Rec: 12/19/22 10:29 DCW [id number]) Physical Therapy Assessment Impairments Impairments Balance,Functional Activities, Functional Mobility,Strength Goals Two Impairment Pt exhibits LE weakness, specifically in bilateral hips Cellophane Tester Goal (LTG) Pt to increase hip strength to at least 4/5 in all planes to improve stability in ambulation LTG Duration 01/31/23 One Impairment Pt does not have an appropriate home exercise program Short Term Goal (STG) Pt to be independent and compliant with an appropriate HEP STG Duration 12/31/22 Assessment Summary Assessment Pt tolerated treatment very well, showing good improvement with ankle strategies and balance challenges. Physical Therapy Plan Frequency and Duration Frequency of Treatment 2x/Week Plan of Care Start Date 12/03/22 Plan of Care End Date 01/31/23 Therapeutic Interventions Therapeutic Interventions Balance Training,Gait Training ,Home Exercise Program,Manual Therapy,Neuromuscular Re- education,Patient/Caregiver Education,Self-Care/Home Management,Soft Tissue Mobilization,Therapeutic Activities,Therapeutic Exercises Next Visit Focus/Plan Next Note Type Treatment Note Next Visit Plan LE strengthening, balance training
--- NOTE | 2022-12-24 10:30 | PT.OTN ---
Current Diagnoses Muscle weakness (generalized) (12/24/22) Unsteadiness on feet (12/24/22) Physical Therapy Treatment Note PT-OP-A Visit Information Start: 12/03/22 17:39 Freq: Status: Active Protocol: Document 12/24/22 09:45 DCW (Rec: 12/24/22 10:30 DCW [id number]) Out-Patient Physical Therapy Visit Information Visit Information Visit Type Treatment Note Visit Start Time 09:45 Visit Stop Time 10:30 Total Visit Minutes 45 Visit Number 6 Number of FURNITURE REMOVALIST'S ASSISTANT Visits 0 Evaluation Information Evaluation Date 12/03/22 PT-OP-B Current Condition Start: 12/03/22 17:39 Freq: Status: Active Protocol: Document 12/03/22 16:00 DCW (Rec: 12/03/22 17:50 DCW [id number]) Current Condition History of Current Condition Onset Date General worsening over last few years Current Complaints Fear of falling, decreased balance, weakness History of Current Condition Pt is an 82 year old female presenting with a worsening history of imbalance, fear of falling, LE weakness, and general deconditioning. Pt reports she tries to stay very active, and tries to keep herself busy, however feels like she has just started losing her balance and strength overall. Pt typically uses trekking poles for community ambulation. Has had a couple of falls, no injuries , believes her most recent fall was ~3 months ago. Pt able to get herself up off the floor, notes she learned how to get up by skiing, which she did often from the ages of 62 -72. Treatment Goals Patient/Caregiver Goals I want to feel more stable, to be more reliant on myself, to feel more comfortable getting out and going for walks by myself. PT-OP-C Subjective Start: 12/03/22 17:39 Freq: Status: Active Protocol: Document 12/24/22 09:45 DCW (Rec: 12/24/22 10:30 DCW [id number]) OP-PT Subjective Patient Comments Patient Comments I feel like my strength is improving, and I'm paying more attention to the balance. PT-OP-D Balance Start: 12/03/22 17:39 Freq: Status: Active Protocol: Document 12/03/22 16:00 DCW (Rec: 12/03/22 17:50 DCW [id number]) Balance Tests Clay Balance Test Clay Balance Test Score 53/56 Clay Impairment Rating 1 to 19% Impaired (Score 45-55 ) Clay Balance Assessment Evaluation Sitting to Standing Ability Independent w/out Hands Unsupported Stance Safely- 2 minutes Sitting Unsupported, Feet on Floor Safely- 2 minutes Standing to Sitting Ability Safely, Minimal Hand Use Transfer Ability Safely, Minimal Hand Use Unsupported Stance- Eyes Closed Safely, 10 seconds Unsupported Stance- Eyes Open Independent, 1 minute Reaching Forward Standing Safely, 5 inches Pick- Up Object From Floor Independent/Safe Look Behind Shoulder - Standing Shifts Weight Well Turning 360 Degrees Turns Bilateral, < 4 secs Unsupported Stance, Alternating Feet on (I)- 8 Steps in 20 secs Stair Unsupported Tandem Stance Holds Tandem- 30 seconds Unilateral Leg Stance Lifts Leg/Holds 5-10 secs Total Score Clay Total Score (out of 56 points) 53 Clay Impairment Rating 1 to 19% Impaired (Score 45-55 ) PT-OP-E Functional Tests Start: 12/03/22 17:39 Freq: Status: Active Protocol: Document 12/03/22 16:00 DCW (Rec: 12/03/22 17:50 [facility] [id number]) Functional Tests Dynamic Gait Index (DGI) Score 21/24 DGI Impairment Rating 1 to <20% Impaired (Score 20- 23) Functional Gait Assessment Score 26/30 Functional Gait Assessment Impairment 1 to <20% Impaired (Score 25- Rating 29) PT-OP-M Strength Start: 12/03/22 17:39 Freq: Status: Active Protocol: Document 12/03/22 16:00 DCW (Rec: 12/03/22 17:50 [facility] [id number]) Hip Strength Hip Manual Muscle Testing Right Flexion (L2) 3+ Fair+ Abduction 4- Good- Adduction 3+ Fair+ External Rotation 4 Good Internal Rotation 4 Good Left Flexion (L2) 3+ Fair+ Abduction 4- Good- Adduction 3+ Fair+ External Rotation 4 Good Internal Rotation 4 Good Knee Strength Knee Manual Muscle Testing Right Flexion (S2) 4 Good Extension (L3) 4 Good Left Flexion (S2) 4 Good Extension (L3) 4 Good Ankle/Foot Strength Ankle and Foot Manual Muscle Testing Right Dorsiflexion (L4) 4 Good Left Dorsiflexion (L4) 4 Good PT-OP-Q Treatments Start: 12/03/22 17:39 Freq: Status: Active Protocol: Document 12/24/22 09:45 DCW (Rec: 12/24/22 10:30 DCW [id number]) Cardio Equipment Recumbent Elliptical (Biodex) Duration (Minutes) 5 Resistance 5 Seat Position 6 Gym Equipment Shuttle Recovery Unilateral Squats Resistance 50# Shuttle Recovery Platform Stable Bilateral Squats Resistance 87# Shuttle Recovery Platform Stable Shuttle Balance Red Details WBOS, Staggered, Lateral weight shift Therapeutic Exercises Standing Exercises Hip Extension Standing Exercise Name Extension Side bilateral Resistance Green Other Exercises Resisted Ambulation Other Exercise Name Resisted Side-stepping Resistance Green Neuro Re-Education Treatment Balance Activities Tandem Ambulation Details Tandem Ambulation Equipment // bars BOSU Details BOSU Stance Surface Blue Hurdles Details Hurdles Comments Fwd, Side-stepping PT-OP-T Assessment and Plan Start: 12/03/22 17:39 Freq: Status: Active Protocol: Document 12/24/22 09:45 DCW (Rec: 12/24/22 10:30 DCW [id number]) Physical Therapy Assessment Impairments Impairments Balance,Functional Activities, Functional Mobility,Strength Goals Two Impairment Pt exhibits LE weakness, specifically in bilateral hips Supervisor Boarding Goal (LTG) Pt to increase hip strength to at least 4/5 in all planes to improve stability in ambulation LTG Duration 01/31/23 One Impairment Pt does not have an appropriate home exercise program Short Term Goal (STG) Pt to be independent and compliant with an appropriate HEP STG Duration 12/31/22 Assessment Summary Assessment Pt continues to do well overall, no fatigue or requests for rest breaks, does appear to be highly visually dependent with balance, will try to increase visual challenges. Physical Therapy Plan Frequency and Duration Frequency of Treatment 2x/Week Plan of Care Start Date 12/03/22 Plan of Care End Date 01/31/23 Therapeutic Interventions Therapeutic Interventions Balance Training,Gait Training ,Home Exercise Program,Manual Therapy,Neuromuscular Re- education,Patient/Caregiver Education,Self-Care/Home Management,Soft Tissue Mobilization,Therapeutic Activities,Therapeutic Exercises Next Visit Focus/Plan Next Note Type Treatment Note Next Visit Plan LE strengthening, balance training
--- NOTE | 2022-12-26 10:26 | PT.OTN ---
Current Diagnoses Muscle weakness (generalized) (12/26/22) Unsteadiness on feet (12/26/22) Physical Therapy Treatment Note PT-OP-A Visit Information Start: 12/03/22 17:39 Freq: Status: Active Protocol: Document 12/26/22 09:45 DCW (Rec: 12/26/22 10:25 DCW [id number]) Out-Patient Physical Therapy Visit Information Visit Information Visit Type Treatment Note Visit Start Time 09:45 Visit Stop Time 10:30 Total Visit Minutes 45 Visit Number 7 Number of EMR IMPLEMENTATION SPECIALIST Visits 0 Evaluation Information Evaluation Date 12/03/22 PT-OP-B Current Condition Start: 12/03/22 17:39 Freq: Status: Active Protocol: Document 12/03/22 16:00 DCW (Rec: 12/03/22 17:50 DCW [id number]) Current Condition History of Current Condition Onset Date General worsening over last few years Current Complaints Fear of falling, decreased balance, weakness History of Current Condition Pt is an 82 year old female presenting with a worsening history of imbalance, fear of falling, LE weakness, and general deconditioning. Pt reports she tries to stay very active, and tries to keep herself busy, however feels like she has just started losing her balance and strength overall. Pt typically uses trekking poles for community ambulation. Has had a couple of falls, no injuries , believes her most recent fall was ~3 months ago. Pt able to get herself up off the floor, notes she learned how to get up by skiing, which she did often from the ages of 62 -72. Treatment Goals Patient/Caregiver Goals I want to feel more stable, to be more reliant on myself, to feel more comfortable getting out and going for walks by myself. PT-OP-C Subjective Start: 12/03/22 17:39 Freq: Status: Active Protocol: Document 12/26/22 09:45 DCW (Rec: 12/26/22 10:25 DCW [id number]) OP-PT Subjective Patient Comments Patient Comments I'm feeling good. This knee ( right) is not twitching right now. PT-OP-D Balance Start: 12/03/22 17:39 Freq: Status: Active Protocol: Document 12/03/22 16:00 DCW (Rec: 12/03/22 17:50 DCW [id number]) Balance Tests Clay Balance Test Clay Balance Test Score 53/56 Clay Impairment Rating 1 to 19% Impaired (Score 45-55 ) Clay Balance Assessment Evaluation Sitting to Standing Ability Independent w/out Hands Unsupported Stance Safely- 2 minutes Sitting Unsupported, Feet on Floor Safely- 2 minutes Standing to Sitting Ability Safely, Minimal Hand Use Transfer Ability Safely, Minimal Hand Use Unsupported Stance- Eyes Closed Safely, 10 seconds Unsupported Stance- Eyes Open Independent, 1 minute Reaching Forward Standing Safely, 5 inches Pick- Up Object From Floor Independent/Safe Look Behind Shoulder - Standing Shifts Weight Well Turning 360 Degrees Turns Bilateral, < 4 secs Unsupported Stance, Alternating Feet on (I)- 8 Steps in 20 secs Stair Unsupported Tandem Stance Holds Tandem- 30 seconds Unilateral Leg Stance Lifts Leg/Holds 5-10 secs Total Score Clay Total Score (out of 56 points) 53 Clay Impairment Rating 1 to 19% Impaired (Score 45-55 ) PT-OP-E Functional Tests Start: 12/03/22 17:39 Freq: Status: Active Protocol: Document 12/03/22 16:00 DCW (Rec: 12/03/22 17:50 [facility] [id number]) Functional Tests Dynamic Gait Index (DGI) Score 21/24 DGI Impairment Rating 1 to <20% Impaired (Score 20- 23) Functional Gait Assessment Score 26/30 Functional Gait Assessment Impairment 1 to <20% Impaired (Score 25- Rating 29) PT-OP-M Strength Start: 12/03/22 17:39 Freq: Status: Active Protocol: Document 12/03/22 16:00 DCW (Rec: 12/03/22 17:50 [facility] [id number]) Hip Strength Hip Manual Muscle Testing Right Flexion (L2) 3+ Fair+ Abduction 4- Good- Adduction 3+ Fair+ External Rotation 4 Good Internal Rotation 4 Good Left Flexion (L2) 3+ Fair+ Abduction 4- Good- Adduction 3+ Fair+ External Rotation 4 Good Internal Rotation 4 Good Knee Strength Knee Manual Muscle Testing Right Flexion (S2) 4 Good Extension (L3) 4 Good Left Flexion (S2) 4 Good Extension (L3) 4 Good Ankle/Foot Strength Ankle and Foot Manual Muscle Testing Right Dorsiflexion (L4) 4 Good Left Dorsiflexion (L4) 4 Good PT-OP-Q Treatments Start: 12/03/22 17:39 Freq: Status: Active Protocol: Document 12/26/22 09:45 DCW (Rec: 12/26/22 10:25 DCW [id number]) Cardio Equipment Recumbent Elliptical (Biodex) Duration (Minutes) 5 Resistance 5 Seat Position 6 Gym Equipment Shuttle Recovery Unilateral Squats Resistance 50# Shuttle Recovery Platform Stable Bilateral Squats Resistance 87# Shuttle Recovery Platform Stable Shuttle Balance Red Details WBOS, Staggered, Lateral weight shift Therapeutic Exercises Standing Exercises Hip Extension Standing Exercise Name Extension Side bilateral Resistance Green Other Exercises Resisted Ambulation Other Exercise Name Resisted Side-stepping Resistance Green Neuro Re-Education Treatment Balance Activities BOSU Details BOSU Stance Surface Blue Hurdles Details Hurdles/Foam Comments Fwd, Tandem, Side-stepping SLS Details SLS Equipment // bars PT-OP-T Assessment and Plan Start: 12/03/22 17:39 Freq: Status: Active Protocol: Document 12/26/22 09:45 DCW (Rec: 12/26/22 10:25 DCW [id number]) Physical Therapy Assessment Impairments Impairments Balance,Functional Activities, Functional Mobility,Strength Goals Two Impairment Pt exhibits LE weakness, specifically in bilateral hips Covering And Lining Supervisor Goal (LTG) Pt to increase hip strength to at least 4/5 in all planes to improve stability in ambulation LTG Duration 01/31/23 One Impairment Pt does not have an appropriate home exercise program Short Term Goal (STG) Pt to be independent and compliant with an appropriate HEP STG Duration 12/31/22 Assessment Summary Assessment Pt showing great improvement with confidence and decreasing fear of falling. Increase visual challenges during balance activities. Physical Therapy Plan Frequency and Duration Frequency of Treatment 2x/Week Plan of Care Start Date 12/03/22 Plan of Care End Date 01/31/23 Therapeutic Interventions Therapeutic Interventions Balance Training,Gait Training ,Home Exercise Program,Manual Therapy,Neuromuscular Re- education,Patient/Caregiver Education,Self-Care/Home Management,Soft Tissue Mobilization,Therapeutic Activities,Therapeutic Exercises Next Visit Focus/Plan Next Note Type Treatment Note Next Visit Plan LE strengthening, balance training
--- NOTE | 2022-12-31 18:03 | PT.OTN ---
Current Diagnoses Muscle weakness (generalized) (12/31/22) Unsteadiness on feet (12/31/22) Physical Therapy Treatment Note PT-OP-A Visit Information Start: 12/03/22 17:39 Freq: Status: Active Protocol: Document 12/31/22 09:42 NBM (Rec: 12/31/22 10:35 NBM [id number]) Out-Patient Physical Therapy Visit Information Visit Information Visit Type Treatment Note Visit Start Time 09:45 Visit Stop Time 10:25 Total Visit Minutes 40 Visit Number 8 Number of ACCOUNTING MACHINE SERVICER Visits 1 Evaluation Information Evaluation Date 12/03/22 PT-OP-B Current Condition Start: 12/03/22 17:39 Freq: Status: Active Protocol: Document 12/03/22 16:00 DCW (Rec: 12/03/22 17:50 DCW [id number]) Current Condition History of Current Condition Onset Date General worsening over last few years Current Complaints Fear of falling, decreased balance, weakness History of Current Condition Pt is an 82 year old female presenting with a worsening history of imbalance, fear of falling, LE weakness, and general deconditioning. Pt reports she tries to stay very active, and tries to keep herself busy, however feels like she has just started losing her balance and strength overall. Pt typically uses trekking poles for community ambulation. Has had a couple of falls, no injuries , believes her most recent fall was ~3 months ago. Pt able to get herself up off the floor, notes she learned how to get up by skiing, which she did often from the ages of 62 -72. Treatment Goals Patient/Caregiver Goals I want to feel more stable, to be more reliant on myself, to feel more comfortable getting out and going for walks by myself. PT-OP-C Subjective Start: 12/03/22 17:39 Freq: Status: Active Protocol: Document 12/31/22 09:42 NBM (Rec: 12/31/22 10:35 NBM [id number]) OP-PT Subjective Patient Comments Patient Comments Pt states, I'm doing better. She reports her confidence with not falling has improved. PT-OP-D Balance Start: 12/03/22 17:39 Freq: Status: Active Protocol: Document 12/03/22 16:00 DCW (Rec: 12/03/22 17:50 DCW [id number]) Balance Tests Clay Balance Test Clay Balance Test Score 53/56 Clay Impairment Rating 1 to 19% Impaired (Score 45-55 ) Clay Balance Assessment Evaluation Sitting to Standing Ability Independent w/out Hands Unsupported Stance Safely- 2 minutes Sitting Unsupported, Feet on Floor Safely- 2 minutes Standing to Sitting Ability Safely, Minimal Hand Use Transfer Ability Safely, Minimal Hand Use Unsupported Stance- Eyes Closed Safely, 10 seconds Unsupported Stance- Eyes Open Independent, 1 minute Reaching Forward Standing Safely, 5 inches Pick- Up Object From Floor Independent/Safe Look Behind Shoulder - Standing Shifts Weight Well Turning 360 Degrees Turns Bilateral, < 4 secs Unsupported Stance, Alternating Feet on (I)- 8 Steps in 20 secs Stair Unsupported Tandem Stance Holds Tandem- 30 seconds Unilateral Leg Stance Lifts Leg/Holds 5-10 secs Total Score Clay Total Score (out of 56 points) 53 Clay Impairment Rating 1 to 19% Impaired (Score 45-55 ) PT-OP-E Functional Tests Start: 12/03/22 17:39 Freq: Status: Active Protocol: Document 12/03/22 16:00 DCW (Rec: 12/03/22 17:50 [facility] [id number]) Functional Tests Dynamic Gait Index (DGI) Score 21/24 DGI Impairment Rating 1 to <20% Impaired (Score 20- 23) Functional Gait Assessment Score 26/30 Functional Gait Assessment Impairment 1 to <20% Impaired (Score 25- Rating 29) PT-OP-M Strength Start: 12/03/22 17:39 Freq: Status: Active Protocol: Document 12/03/22 16:00 DCW (Rec: 12/03/22 17:50 [facility] [id number]) Hip Strength Hip Manual Muscle Testing Right Flexion (L2) 3+ Fair+ Abduction 4- Good- Adduction 3+ Fair+ External Rotation 4 Good Internal Rotation 4 Good Left Flexion (L2) 3+ Fair+ Abduction 4- Good- Adduction 3+ Fair+ External Rotation 4 Good Internal Rotation 4 Good Knee Strength Knee Manual Muscle Testing Right Flexion (S2) 4 Good Extension (L3) 4 Good Left Flexion (S2) 4 Good Extension (L3) 4 Good Ankle/Foot Strength Ankle and Foot Manual Muscle Testing Right Dorsiflexion (L4) 4 Good Left Dorsiflexion (L4) 4 Good PT-OP-Q Treatments Start: 12/03/22 17:39 Freq: Status: Active Protocol: Document 12/31/22 09:42 NB (Rec: 12/31/22 10:35 [facility] [id number]) Cardio Equipment Recumbent Elliptical (Biodex) Duration (Minutes) 5 Resistance 5 Seat Position 6 Gym Equipment Shuttle Recovery Unilateral Squats Resistance 50# Shuttle Recovery Platform Stable Bilateral Squats Resistance 87# Shuttle Recovery Platform Stable Therapeutic Exercises Sitting Exercises LAQ Sitting Exercise Name knee extension - added to HEP Side bilateral Reps/Minutes x5 ea Comments cues for slow eccentric HS stretch Sitting Exercise Name added to HEP Side bilateral Equipment Used standard mesh chair Reps/Minutes 2x30s ea Comments good feedback response Other Exercises STS Other Exercise Name sit to stand - added to HEP Reps/Minutes x10 Comments slow eccentric, glute squeeze at top, knee alignment Neuro Re-Education Treatment Balance Activities BOSU Details BOSU Stance Surface Blue Comments normal [place], head turns, EO/EC cues for glute engagement Hurdles Details Hurdles/Foam Equipment // bars Comments Fwd SLS Details SLS Equipment handrail, gait belt Reps/Duration trials Comments 10-12s R, 7-9s L Self-Care/Home Management Treatment Education Patient Education Home Exercise Program Caregiver Education Added to HEP: seated HS stretch, sit to stand, LAQ - HO given. PT-OP-T Assessment and Plan Start: 12/03/22 17:39 Freq: Status: Active Protocol: Document 12/31/22 09:42 NB (Rec: 12/31/22 10:35 [facility] [id number]) Physical Therapy Assessment Goals Two Impairment Pt exhibits LE weakness, specifically in bilateral hips Senior Care Goal (LTG) Pt to increase hip strength to at least 4/5 in all planes to improve stability in ambulation LTG Duration 01/31/23 One Impairment Pt does not have an appropriate home exercise program Short Term Goal (STG) Pt to be independent and compliant with an appropriate HEP STG Duration 12/31/22 Assessment Summary Assessment Pt continues to demonstrate increased confidence with decreased fear of falling, but indicates she descends stairs sideways holding rail due to fear of falling. 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 Added to HEP: seated HS stretch, sit to stand, LAQ - HO given. Physical Therapy Plan Frequency and Duration Frequency of Treatment 2x/Week Plan of Care Start Date 12/03/22 Plan of Care End Date 01/31/23 Therapeutic Interventions Therapeutic Interventions Balance Training,Gait Training ,Home Exercise Program,Manual Therapy,Neuromuscular Re- education,Patient/Caregiver Education,Self-Care/Home Management,Soft Tissue Mobilization,Therapeutic Activities,Therapeutic Exercises Next Visit Focus/Plan Next Note Type Treatment Note Next Visit Plan LE strengthening, balance training
--- NOTE | 2023-01-06 17:10 | PT.OTN ---
Current Diagnoses Muscle weakness (generalized) (01/06/23) Unsteadiness on feet (01/06/23) Physical Therapy Treatment Note PT-OP-A Visit Information Start: 12/03/22 17:39 Freq: Status: Active Protocol: Document 01/06/23 14:40 NBM (Rec: 01/06/23 15:23 NBM [id number]) Out-Patient Physical Therapy Visit Information Visit Information Visit Type Treatment Note Visit Start Time 14:40 Visit Stop Time 15:20 Total Visit Minutes 40 Visit Number 9 Number of IUSS ACOUSTIC ANALYST Visits 2 Evaluation Information Evaluation Date 12/03/22 PT-OP-B Current Condition Start: 12/03/22 17:39 Freq: Status: Active Protocol: Document 12/03/22 16:00 DCW (Rec: 12/03/22 17:50 DCW [id number]) Current Condition History of Current Condition Onset Date General worsening over last few years Current Complaints Fear of falling, decreased balance, weakness History of Current Condition Pt is an 82 year old female presenting with a worsening history of imbalance, fear of falling, LE weakness, and general deconditioning. Pt reports she tries to stay very active, and tries to keep herself busy, however feels like she has just started losing her balance and strength overall. Pt typically uses trekking poles for community ambulation. Has had a couple of falls, no injuries , believes her most recent fall was ~3 months ago. Pt able to get herself up off the floor, notes she learned how to get up by skiing, which she did often from the ages of 62 -72. Treatment Goals Patient/Caregiver Goals I want to feel more stable, to be more reliant on myself, to feel more comfortable getting out and going for walks by myself. PT-OP-C Subjective Start: 12/03/22 17:39 Freq: Status: Active Protocol: Document 01/06/23 14:40 NBM (Rec: 01/06/23 15:23 NBM [id number]) OP-PT Subjective Patient Comments Patient Comments Pt states she is doing well and wants to keep progressing strength and confidence. Pt was sore the day after last visit and states I can feel my glutes now. PT-OP-D Balance Start: 12/03/22 17:39 Freq: Status: Active Protocol: Document 12/03/22 16:00 DCW (Rec: 12/03/22 17:50 DCW [id number]) Balance Tests Clay Balance Test Clay Balance Test Score 53/56 Clay Impairment Rating 1 to 19% Impaired (Score 45-55 ) Clay Balance Assessment Evaluation Sitting to Standing Ability Independent w/out Hands Unsupported Stance Safely- 2 minutes Sitting Unsupported, Feet on Floor Safely- 2 minutes Standing to Sitting Ability Safely, Minimal Hand Use Transfer Ability Safely, Minimal Hand Use Unsupported Stance- Eyes Closed Safely, 10 seconds Unsupported Stance- Eyes Open Independent, 1 minute Reaching Forward Standing Safely, 5 inches Pick- Up Object From Floor Independent/Safe Look Behind Shoulder - Standing Shifts Weight Well Turning 360 Degrees Turns Bilateral, < 4 secs Unsupported Stance, Alternating Feet on (I)- 8 Steps in 20 secs Stair Unsupported Tandem Stance Holds Tandem- 30 seconds Unilateral Leg Stance Lifts Leg/Holds 5-10 secs Total Score Clay Total Score (out of 56 points) 53 Clay Impairment Rating 1 to 19% Impaired (Score 45-55 ) PT-OP-E Functional Tests Start: 12/03/22 17:39 Freq: Status: Active Protocol: Document 12/03/22 16:00 DCW (Rec: 12/03/22 17:50 DCW [id number]) Functional Tests Dynamic Gait Index (DGI) Score 21/24 DGI Impairment Rating 1 to <20% Impaired (Score 20- 23) Functional Gait Assessment Score 26/30 Functional Gait Assessment Impairment 1 to <20% Impaired (Score 25- Rating 29) PT-OP-M Strength Start: 12/03/22 17:39 Freq: Status: Active Protocol: Document 12/03/22 16:00 DCW (Rec: 12/03/22 17:50 DCW [id number]) Hip Strength Hip Manual Muscle Testing Right Flexion (L2) 3+ Fair+ Abduction 4- Good- Adduction 3+ Fair+ External Rotation 4 Good Internal Rotation 4 Good Left Flexion (L2) 3+ Fair+ Abduction 4- Good- Adduction 3+ Fair+ External Rotation 4 Good Internal Rotation 4 Good Knee Strength Knee Manual Muscle Testing Right Flexion (S2) 4 Good Extension (L3) 4 Good Left Flexion (S2) 4 Good Extension (L3) 4 Good Ankle/Foot Strength Ankle and Foot Manual Muscle Testing Right Dorsiflexion (L4) 4 Good Left Dorsiflexion (L4) 4 Good PT-OP-Q Treatments Start: 12/03/22 17:39 Freq: Status: Active Protocol: Document 01/06/23 14:40 NB (Rec: 01/06/23 15:23 [facility] [id number]) Cardio Equipment Recumbent Elliptical (Biodex) Duration (Minutes) 6 Resistance 5 Seat Position 6 Gym Equipment Shuttle Recovery Unilateral Squats Resistance 50# Shuttle Recovery Platform Stable Bilateral Squats Resistance 87#>100# Shuttle Recovery Platform Stable Reps/Time R knee is talking Therapeutic Exercises Sitting Exercises LAQ Sitting Exercise Name knee extension - HEP review Side bilateral Reps/Minutes x5 ea Comments cues for slow eccentric Standing Exercises Toe-taps Standing Exercise Name Toe-taps Side bilateral Resistance 5# ea Equipment Used 6 step Reps/Minutes x5 ea 0#, 2x10 5# Comments initial R toe scuff x2 when 5# added. Hip Extension Standing Exercise Name Extension Side bilateral Resistance Green Reps/Minutes 2x5 ea Comments initial cues for upright posture, glute focus Other Exercises STS Other Exercise Name sit to stand - HEP review Reps/Minutes x15 Comments slow eccentric, glute squeeze at top, knee alignment Resisted Ambulation Other Exercise Name Resisted Side-stepping Resistance Green Self-Care/Home Management Treatment Education Patient Education Pain Management,Safety Other Education Pt's R knee pain is 0/10 beginning of session but gradually increases to 4/10 during unilateral RLE shuttle recovery leg press, but pt wants to keep going. Pt is educated not to tolerate exercise w/ pain increase of more than 1-2 levels. PT-OP-T Assessment and Plan Start: 12/03/22 17:39 Freq: Status: Active Protocol: Document 01/06/23 14:40 NB (Rec: 01/06/23 15:23 [facility] [id number]) Physical Therapy Assessment Impairments Impairments Balance,Functional Activities, Functional Mobility,Strength Goals Two Impairment Pt exhibits LE weakness, specifically in bilateral hips Advanced Quality Engineer Goal (LTG) Pt to increase hip strength to at least 4/5 in all planes to improve stability in ambulation LTG Duration 01/31/23 One Impairment Pt does not have an appropriate home exercise program Short Term Goal (STG) Pt to be independent and compliant with an appropriate HEP STG Duration 12/31/22 Assessment Summary Assessment Pt's R knee pain is 0/10 beginning of session but gradually increases to 4/10 during unilateral RLE shuttle recovery leg press. Pt is educated not to tolerate exercise w/ pain increase of more than 1-2 levels. Pt initially has R toe scuff x2 with toe taps on 6 step when 5# added but self-corrects with increased dorsiflexion and hip flexion. Pt requires cues for hip hinge with sit to stand and is challenged with controlled descent just before chair contact. Pt demonstrates improved self- awareness of neutral foot positioning, glute activation, and upright posture, as well as improving confidence with balance. Physical Therapy Plan Frequency and Duration Frequency of Treatment 2x/Week Plan of Care Start Date 12/03/22 Plan of Care End Date 01/31/23 Therapeutic Interventions Therapeutic Interventions Balance Training,Gait Training ,Home Exercise Program,Manual Therapy,Neuromuscular Re- education,Patient/Caregiver Education,Self-Care/Home Management,Soft Tissue Mobilization,Therapeutic Activities,Therapeutic Exercises Next Visit Focus/Plan Next Note Type Treatment Note Next Visit Plan LE strengthening, balance training
--- NOTE | 2023-01-13 15:14 | PT.OTN ---
Current Diagnoses Muscle weakness (generalized) (01/13/23) Unsteadiness on feet (01/13/23) Physical Therapy Treatment Note PT-OP-A Visit Information Start: 12/03/22 17:39 Freq: Status: Active Protocol: Document 01/13/23 14:30 DCW (Rec: 01/13/23 15:13 DCW [id number]) Out-Patient Physical Therapy Visit Information Visit Information Visit Type Progress Note Visit Note 10th visit Visit Start Time 14:30 Visit Stop Time 15:15 Total Visit Minutes 45 Visit Number 10 Number of FIELD SALES REPRESENTATIVE Visits 0 Evaluation Information Evaluation Date 12/03/22 PT-OP-B Current Condition Start: 12/03/22 17:39 Freq: Status: Active Protocol: Document 12/03/22 16:00 DCW (Rec: 12/03/22 17:50 DCW [id number]) Current Condition History of Current Condition Onset Date General worsening over last few years Current Complaints Fear of falling, decreased balance, weakness History of Current Condition Pt is an 82 year old female presenting with a worsening history of imbalance, fear of falling, LE weakness, and general deconditioning. Pt reports she tries to stay very active, and tries to keep herself busy, however feels like she has just started losing her balance and strength overall. Pt typically uses trekking poles for community ambulation. Has had a couple of falls, no injuries , believes her most recent fall was ~3 months ago. Pt able to get herself up off the floor, notes she learned how to get up by skiing, which she did often from the ages of 62 -72. Treatment Goals Patient/Caregiver Goals I want to feel more stable, to be more reliant on myself, to feel more comfortable getting out and going for walks by myself. PT-OP-C Subjective Start: 12/03/22 17:39 Freq: Status: Active Protocol: Document 01/13/23 14:30 DCW (Rec: 01/13/23 15:13 DCW [id number]) OP-PT Subjective Patient Comments Patient Comments Pt reports she is feeling much better overall, no complaints at the moment. PT-OP-D Balance Start: 12/03/22 17:39 Freq: Status: Active Protocol: Document 12/03/22 16:00 DCW (Rec: 12/03/22 17:50 DCW [id number]) Balance Tests Clay Balance Test Clay Balance Test Score 53/56 Clay Impairment Rating 1 to 19% Impaired (Score 45-55 ) Clay Balance Assessment Evaluation Sitting to Standing Ability Independent w/out Hands Unsupported Stance Safely- 2 minutes Sitting Unsupported, Feet on Floor Safely- 2 minutes Standing to Sitting Ability Safely, Minimal Hand Use Transfer Ability Safely, Minimal Hand Use Unsupported Stance- Eyes Closed Safely, 10 seconds Unsupported Stance- Eyes Open Independent, 1 minute Reaching Forward Standing Safely, 5 inches Pick- Up Object From Floor Independent/Safe Look Behind Shoulder - Standing Shifts Weight Well Turning 360 Degrees Turns Bilateral, < 4 secs Unsupported Stance, Alternating Feet on (I)- 8 Steps in 20 secs Stair Unsupported Tandem Stance Holds Tandem- 30 seconds Unilateral Leg Stance Lifts Leg/Holds 5-10 secs Total Score Clay Total Score (out of 56 points) 53 Clay Impairment Rating 1 to 19% Impaired (Score 45-55 ) PT-OP-E Functional Tests Start: 12/03/22 17:39 Freq: Status: Active Protocol: Document 12/03/22 16:00 DCW (Rec: 12/03/22 17:50 [facility] [id number]) Functional Tests Dynamic Gait Index (DGI) Score 21/24 DGI Impairment Rating 1 to <20% Impaired (Score 20- 23) Functional Gait Assessment Score 26/30 Functional Gait Assessment Impairment 1 to <20% Impaired (Score 25- Rating 29) PT-OP-M Strength Start: 12/03/22 17:39 Freq: Status: Active Protocol: Document 01/13/23 14:30 DCW (Rec: 01/13/23 15:14 [facility] [id number]) Hip Strength Hip Manual Muscle Testing Right Flexion (L2) 4- Good- Abduction 4 Good Adduction 4+ Good+ External Rotation 4 Good Internal Rotation 4+ Good+ Left Flexion (L2) 4- Good- Abduction 4 Good Adduction 4+ Good+ External Rotation 4 Good Internal Rotation 4+ Good+ Knee Strength Knee Manual Muscle Testing Right Flexion (S2) 4+ Good+ Extension (L3) 4+ Good+ Left Flexion (S2) 4+ Good+ Extension (L3) 4+ Good+ Ankle/Foot Strength Ankle and Foot Manual Muscle Testing Right Dorsiflexion (L4) 4+ Good+ Left Dorsiflexion (L4) 4+ Good+ PT-OP-Q Treatments Start: 12/03/22 17:39 Freq: Status: Active Protocol: Document 01/13/23 14:30 DCW (Rec: 01/13/23 15:13 DCW [id number]) Cardio Equipment Recumbent Elliptical (Biodex) Duration (Minutes) 5 Resistance 5 Seat Position 6 Gym Equipment Shuttle Recovery Unilateral Squats Resistance 50# Shuttle Recovery Platform Stable Bilateral Squats Resistance 100# Shuttle Recovery Platform Stable Reps/Time R knee fatigues first Shuttle Balance Red Details WBOS, Staggered, Lateral weight shift Therapeutic Exercises Sitting Exercises LAQ Sitting Exercise Name knee extension Side bilateral Resistance 5# Reps/Minutes x5 ea Comments cues for slow eccentric Standing Exercises Toe-taps Standing Exercise Name Toe-taps Side bilateral Resistance 5# ea Equipment Used 6 step Reps/Minutes 2x10 Hip Extension Standing Exercise Name Extension Side bilateral Resistance Green Reps/Minutes x15 ea Comments initial cues for upright posture, glute focus Other Exercises Resisted Ambulation Other Exercise Name Resisted Side-stepping Resistance Green PT-OP-T Assessment and Plan Start: 12/03/22 17:39 Freq: Status: Active Protocol: Document 01/13/23 14:30 DCW (Rec: 01/13/23 15:13 DCW [id number]) Physical Therapy Assessment Impairments Impairments Balance,Functional Activities, Functional Mobility,Strength Goals Two Impairment Pt exhibits LE weakness, specifically in bilateral hips Calciner Operator Goal (LTG) Pt to increase hip strength to at least 4/5 in all planes to improve stability in ambulation LTG Duration 01/31/23 One Impairment Pt does not have an appropriate home exercise program Short Term Goal (STG) Pt to be independent and compliant with an appropriate HEP STG Duration 12/31/22 Assessment Summary Assessment Pt able to tolerate today's visit with no increased knee pain. Showing some progress with LE MMT, admits she feels stronger, notes her balance is improving, however still gets very anxious about falling or losing her balance. Physical Therapy Plan Frequency and Duration Frequency of Treatment 2x/Week Plan of Care Start Date 12/03/22 Plan of Care End Date 01/31/23 Therapeutic Interventions Therapeutic Interventions Balance Training,Gait Training ,Home Exercise Program,Manual Therapy,Neuromuscular Re- education,Patient/Caregiver Education,Self-Care/Home Management,Soft Tissue Mobilization,Therapeutic Activities,Therapeutic Exercises Next Visit Focus/Plan Next Note Type Treatment Note Next Visit Plan LE strengthening, balance training
--- NOTE | 2023-01-21 09:54 | PT.OTN ---
Current Diagnoses Muscle weakness (generalized) (01/21/23) Unsteadiness on feet (01/21/23) Physical Therapy Treatment Note PT-OP-A Visit Information Start: 12/03/22 17:39 Freq: Status: Active Protocol: Document 01/21/23 09:13 NBM (Rec: 01/21/23 09:54 [facility] [id number]) Out-Patient Physical Therapy Visit Information Visit Information Visit Type Treatment Note Visit Start Time 09:09 Visit Stop Time 09:49 Total Visit Minutes 40 Visit Number 11 Number of LAY OUT DRAFTER Visits 1 PT-OP-B Current Condition Start: 12/03/22 17:39 Freq: Status: Active Protocol: Document 12/03/22 16:00 DCW (Rec: 12/03/22 17:50 DCW [id number]) Current Condition History of Current Condition Onset Date General worsening over last few years Current Complaints Fear of falling, decreased balance, weakness History of Current Condition Pt is an 82 year old female presenting with a worsening history of imbalance, fear of falling, LE weakness, and general deconditioning. Pt reports she tries to stay very active, and tries to keep herself busy, however feels like she has just started losing her balance and strength overall. Pt typically uses trekking poles for community ambulation. Has had a couple of falls, no injuries , believes her most recent fall was ~3 months ago. Pt able to get herself up off the floor, notes she learned how to get up by skiing, which she did often from the ages of 62 -72. Treatment Goals Patient/Caregiver Goals I want to feel more stable, to be more reliant on myself, to feel more comfortable getting out and going for walks by myself. PT-OP-C Subjective Start: 12/03/22 17:39 Freq: Status: Active Protocol: Document 01/21/23 09:13 NBM (Rec: 01/21/23 09:54 [facility] [id number]) OP-PT Subjective Patient Comments Patient Comments Pt states she has been working on her balance by closing her eyes in the shower while washing her hair. She states she used to have to grab the bar but now she doesn't any more. Knees seem to be doing okay today. She still uses a rail on the stairs. Pt states she wants to strengthen muscles around the knee. PT-OP-D Balance Start: 12/03/22 17:39 Freq: Status: Active Protocol: Document 12/03/22 16:00 DCW (Rec: 12/03/22 17:50 DCW [id number]) Balance Tests Clay Balance Test Clay Balance Test Score 53/56 Clay Impairment Rating 1 to 19% Impaired (Score 45-55 ) Clay Balance Assessment Evaluation Sitting to Standing Ability Independent w/out Hands Unsupported Stance Safely- 2 minutes Sitting Unsupported, Feet on Floor Safely- 2 minutes Standing to Sitting Ability Safely, Minimal Hand Use Transfer Ability Safely, Minimal Hand Use Unsupported Stance- Eyes Closed Safely, 10 seconds Unsupported Stance- Eyes Open Independent, 1 minute Reaching Forward Standing Safely, 5 inches Pick- Up Object From Floor Independent/Safe Look Behind Shoulder - Standing Shifts Weight Well Turning 360 Degrees Turns Bilateral, < 4 secs Unsupported Stance, Alternating Feet on (I)- 8 Steps in 20 secs Stair Unsupported Tandem Stance Holds Tandem- 30 seconds Unilateral Leg Stance Lifts Leg/Holds 5-10 secs Total Score Clay Total Score (out of 56 points) 53 Clay Impairment Rating 1 to 19% Impaired (Score 45-55 ) PT-OP-E Functional Tests Start: 12/03/22 17:39 Freq: Status: Active Protocol: Document 12/03/22 16:00 DCW (Rec: 12/03/22 17:50 DCW [id number]) Functional Tests Dynamic Gait Index (DGI) Score 21/24 DGI Impairment Rating 1 to <20% Impaired (Score 20- 23) Functional Gait Assessment Score 26/30 Functional Gait Assessment Impairment 1 to <20% Impaired (Score 25- Rating 29) PT-OP-M Strength Start: 12/03/22 17:39 Freq: Status: Active Protocol: Document 01/13/23 14:30 DCW (Rec: 01/13/23 15:14 DCW [id number]) Hip Strength Hip Manual Muscle Testing Right Flexion (L2) 4- Good- Abduction 4 Good Adduction 4+ Good+ External Rotation 4 Good Internal Rotation 4+ Good+ Left Flexion (L2) 4- Good- Abduction 4 Good Adduction 4+ Good+ External Rotation 4 Good Internal Rotation 4+ Good+ Knee Strength Knee Manual Muscle Testing Right Flexion (S2) 4+ Good+ Extension (L3) 4+ Good+ Left Flexion (S2) 4+ Good+ Extension (L3) 4+ Good+ Ankle/Foot Strength Ankle and Foot Manual Muscle Testing Right Dorsiflexion (L4) 4+ Good+ Left Dorsiflexion (L4) 4+ Good+ PT-OP-Q Treatments Start: 12/03/22 17:39 Freq: Status: Active Protocol: Document 01/21/23 09:13 NB (Rec: 01/21/23 09:54 [facility] [id number]) Cardio Equipment Recumbent Elliptical (Biodex) Duration (Minutes) 5 Resistance 5 Seat Position 7 Gym Equipment Shuttle Recovery Unilateral Squats Resistance 50# Shuttle Recovery Platform Stable Bilateral Squats Resistance 100# Shuttle Recovery Platform Stable,Unstable Reps/Time R knee fatigues first Shuttle Balance Red Details WBOS, Comments A/P weight shifting w/ cue for quiet tap for eccentric control Therapeutic Exercises Sitting Exercises seated adduction Sitting Exercise Name ball squeeze - added to HEP Side bilateral Equipment Used blue/white ball Reps/Minutes 10x 5SH Comments pt compensates initially w/ plantarflexion hip abduction Sitting Exercise Name seated clamshell - added to HEP Side bilateral Equipment Used Lvl 2 Tb Reps/Minutes 2x10 Comments good challenge LAQ Sitting Exercise Name knee extension Side bilateral Resistance 5# Reps/Minutes 2x10 ea Comments initial cue for slow eccentric , then good form PT-OP-T Assessment and Plan Start: 12/03/22 17:39 Freq: Status: Active Protocol: Document 01/21/23 09:13 [facility] (Rec: 01/21/23 09:54 [facility] [id number]) Physical Therapy Assessment Goals Two Impairment Pt exhibits LE weakness, specifically in bilateral hips Label Tacker Goal (LTG) Pt to increase hip strength to at least 4/5 in all planes to improve stability in ambulation LTG Duration 01/31/23 One Impairment Pt does not have an appropriate home exercise program Short Term Goal (STG) Pt to be independent and compliant with an appropriate HEP STG Duration 12/31/22 Assessment Summary Assessment Pt demonstrates improving LE strength and balance. She is able to ascend and descend 6 stairs step over step without UE support and with upright posture, but with descent carrying a crate pt reverts to step-to gait pattern due to lack of confidence. Added to HEP: seated clamshell and ball squeeze - HO declined. One LOB posteriorly into chair during sit to stand between activities. Physical Therapy Plan Frequency and Duration Frequency of Treatment 2x/Week Plan of Care Start Date 12/03/22 Plan of Care End Date 01/31/23 Therapeutic Interventions Therapeutic Interventions Balance Training,Gait Training ,Home Exercise Program,Manual Therapy,Neuromuscular Re- education,Patient/Caregiver Education,Self-Care/Home Management,Soft Tissue Mobilization,Therapeutic Activities,Therapeutic Exercises Next Visit Focus/Plan Next Note Type Treatment Note Next Visit Plan LE strengthening, balance training
--- NOTE | 2023-01-28 10:32 | PT.OTN ---
Current Diagnoses Muscle weakness (generalized) (01/28/23) Unsteadiness on feet (01/28/23) Physical Therapy Treatment Note PT-OP-A Visit Information Start: 12/03/22 17:39 Freq: Status: Active Protocol: Document 01/28/23 09:45 DCW (Rec: 01/28/23 10:29 DCW [id number]) Out-Patient Physical Therapy Visit Information Visit Information Visit Type Discharge Summary Visit Start Time 09:45 Visit Stop Time 10:30 Total Visit Minutes 45 Visit Number 12 Number of EMERGENCY CARE TECH Visits 0 PT-OP-B Current Condition Start: 12/03/22 17:39 Freq: Status: Active Protocol: Document 12/03/22 16:00 DCW (Rec: 12/03/22 17:50 DCW [id number]) Current Condition History of Current Condition Onset Date General worsening over last few years Current Complaints Fear of falling, decreased balance, weakness History of Current Condition Pt is an 82 year old female presenting with a worsening history of imbalance, fear of falling, LE weakness, and general deconditioning. Pt reports she tries to stay very active, and tries to keep herself busy, however feels like she has just started losing her balance and strength overall. Pt typically uses trekking poles for community ambulation. Has had a couple of falls, no injuries , believes her most recent fall was ~3 months ago. Pt able to get herself up off the floor, notes she learned how to get up by skiing, which she did often from the ages of 62 -72. Treatment Goals Patient/Caregiver Goals I want to feel more stable, to be more reliant on myself, to feel more comfortable getting out and going for walks by myself. PT-OP-C Subjective Start: 12/03/22 17:39 Freq: Status: Active Protocol: Document 01/28/23 09:45 DCW (Rec: 01/28/23 10:29 DCW [id number]) OP-PT Subjective Patient Comments Patient Comments Pt reports she is feeling pretty good about everything, notes she has a lot to work on at home, and believes both her balance and strength has improved, as well as her endurance. PT-OP-D Balance Start: 12/03/22 17:39 Freq: Status: Active Protocol: Document 12/03/22 16:00 DCW (Rec: 12/03/22 17:50 DCW [id number]) Balance Tests Clay Balance Test Clay Balance Test Score 53/56 Clay Impairment Rating 1 to 19% Impaired (Score 45-55 ) Clay Balance Assessment Evaluation Sitting to Standing Ability Independent w/out Hands Unsupported Stance Safely- 2 minutes Sitting Unsupported, Feet on Floor Safely- 2 minutes Standing to Sitting Ability Safely, Minimal Hand Use Transfer Ability Safely, Minimal Hand Use Unsupported Stance- Eyes Closed Safely, 10 seconds Unsupported Stance- Eyes Open Independent, 1 minute Reaching Forward Standing Safely, 5 inches Pick- Up Object From Floor Independent/Safe Look Behind Shoulder - Standing Shifts Weight Well Turning 360 Degrees Turns Bilateral, < 4 secs Unsupported Stance, Alternating Feet on (I)- 8 Steps in 20 secs Stair Unsupported Tandem Stance Holds Tandem- 30 seconds Unilateral Leg Stance Lifts Leg/Holds 5-10 secs Total Score Clay Total Score (out of 56 points) 53 Clay Impairment Rating 1 to 19% Impaired (Score 45-55 ) PT-OP-E Functional Tests Start: 12/03/22 17:39 Freq: Status: Active Protocol: Document 01/28/23 09:45 DCW (Rec: 01/28/23 10:31 [facility] [id number]) Functional Tests Functional Gait Assessment Score 29/30 Functional Gait Assessment Impairment 1 to <20% Impaired (Score 25- Rating 29) PT-OP-M Strength Start: 12/03/22 17:39 Freq: Status: Active Protocol: Document 01/28/23 09:45 DCW (Rec: 01/28/23 10:31 [facility] [id number]) Hip Strength Hip Manual Muscle Testing Right Flexion (L2) 4 Good Abduction 4 Good Adduction 4+ Good+ External Rotation 4 Good Internal Rotation 4+ Good+ Left Flexion (L2) 4 Good Abduction 4 Good Adduction 4+ Good+ External Rotation 4 Good Internal Rotation 4+ Good+ PT-OP-Q Treatments Start: 12/03/22 17:39 Freq: Status: Active Protocol: Document 01/28/23 09:45 DCW (Rec: 01/28/23 10:29 [facility] [id number]) Gym Equipment Shuttle Recovery Unilateral Squats Resistance 50# Shuttle Recovery Platform Stable Bilateral Squats Resistance 100# Shuttle Recovery Platform Stable Reps/Time R knee fatigues first Shuttle Balance Red Details WBOS, Staggered Neuro Re-Education Treatment Balance Activities BOSU Details BOSU Stance Surface Blue Comments normal MACRINA, head turns, EO/EC cues for glute engagement Tandem Stance Details Tandem Stance Foam Stance Details NBOS Surface Blue foam Equipment // bars Comments EO/EC Other Activities Testing Details FGA - PT-OP-T Assessment and Plan Start: 12/03/22 17:39 Freq: Status: Active Protocol: Document 01/28/23 09:45 DCW (Rec: 01/28/23 10:29 DCW [id number]) Physical Therapy Assessment Goals Two Impairment Pt exhibits LE weakness, specifically in bilateral hips Detention Goal (LTG) Pt to increase hip strength to at least 4/5 in all planes to improve stability in ambulation LTG Duration Met One Impairment Pt does not have an appropriate home exercise program Short Term Goal (STG) Pt to be independent and compliant with an appropriate HEP STG Duration Met Assessment Summary Assessment Pt has met all goals, happy with current level of function , appropriate for discharge at this time. Physical Therapy Plan Frequency and Duration Frequency of Treatment 2x/Week Plan of Care Start Date 12/03/22 Plan of Care End Date 01/31/23 Therapeutic Interventions Therapeutic Interventions Balance Training,Gait Training ,Home Exercise Program,Manual Therapy,Neuromuscular Re- education,Patient/Caregiver Education,Self-Care/Home Management,Soft Tissue Mobilization,Therapeutic Activities,Therapeutic Exercises Discharge Physical Therapy Discharge Reasons Goals Met Next Visit Focus/Plan Next Note Type Discharge Summary
== END 2023-01-29 15:12 | disposition home or self-care (01) ==
LOC: PHYS 09:45
PROVIDERS: Family Provider Family Medicine; PCP Family Medicine; Referring Provider Family Medicine; Visit Provider Family Medicine
DX: R26.81 Unsteadiness on feet (principal); M62.81 Muscle weakness (generalized)
CPT/HCPCS: 97110; 97112; 97161

== ENCOUNTER → 2023-04-01 09:40 | Outpatient (CLI) | payer MEDICARE, OTHER, SELFPAY ==
[2023-04-02 03:15] LABS: Labcorp Hemoglobin (Hb) A1c 6.1 % (4.8-5.6)
== END ==
PROVIDERS: Family Provider Family Medicine; PCP Family Medicine; Referring Provider Family Medicine; Visit Provider Family Medicine
DX: E11.29 Type 2 diabetes mellitus with other diabetic kidney complication (principal); R80.9 Proteinuria, unspecified; I10 Essential (primary) hypertension
CPT/HCPCS: 36415; 83036

== ENCOUNTER → 2024-02-04 09:45 | Outpatient (CLI) | payer MEDICARE, OTHER, SELFPAY ==
[2024-02-04 10:26] LABS: Hemoglobin A1C% w Est Avg Glu 5.8 % (4.0-6.0)
[2024-02-04 10:27] LABS: HEMOLYSIS < 15 (0-50); Potassium 5.1 mmol/L (3.4-5.1)
[2024-02-04 10:28] LABS: Alanine Aminotransferase 14 IU/L (<35); Albumin 3.8 g/dL (3.5-5.0); Albumin Globulin Ratio 1.5 (1.0-2.8); Alkaline Phosphatase 49 U/L (38-126); Aspartate Aminotransferase 25 IU/L (14-36); BUN Creatinine Ratio 32.7 (6-22); Bilirubin Total 1.2 mg/dL (0.2-1.3); Blood Urea Nitrogen 17 mg/dL (7-17); Calcium 9.1 mg/dL (8.4-10.2); Carbon Dioxide 33 mmol/L (22-32); Chloride 105 mmol/L (98-107); Cholesterol 184 mg/dL (140-199); Estimated Glomerular Filt Rate > 60 mL/min (>60); Globulin 2.6 g/dL (1.7-4.1); Glucose 98 mg/dL (80-110); HDL Cholesterol 72 mg/dL (40-60); LDL Cholesterol Calculated 86 mg/dL (<100); Sodium 138 mmol/L (137-145); Total Protein 6.4 g/dL (6.3-8.2); Triglycerides 129 mg/dL (35-150)
[2024-02-04 11:22] LABS: Free T4, Direct Thyroxine 1.34 ng/dL (0.78-2.19)
== END ==
PROVIDERS: Family Provider Family Medicine; PCP Family Medicine; Referring Provider Family Medicine; Visit Provider Family Medicine
DX: Z00.00 Encounter for general adult medical examination without abnormal findings (principal); E11.29 Type 2 diabetes mellitus with other diabetic kidney complication; R80.9 Proteinuria, unspecified; E78.5 Hyperlipidemia, unspecified; I10 Essential (primary) hypertension; E11.9 Type 2 diabetes mellitus without complications; E03.9 Hypothyroidism, unspecified
CPT/HCPCS: 36415; 80053; 80061; 83036; 84439; 84443

== ENCOUNTER → 2024-08-05 06:59 | Outpatient (CLI) | payer MEDICARE, OTHER, SELFPAY ==
[2024-08-05 08:48] LABS: BUN Creatinine Ratio 35.8 (6-22); Blood Urea Nitrogen 19 mg/dL (7-17); Calcium 9.7 mg/dL (8.4-10.2); Carbon Dioxide 29 mmol/L (22-32); Chloride 102 mmol/L (98-107); Estimated Glomerular Filt Rate > 60 mL/min (>60); Glucose 92 mg/dL (80-110); HEMOLYSIS < 15 (0-50); Potassium 4.4 mmol/L (3.4-5.1); Sodium 136 mmol/L (137-145)
[2024-08-05 09:15] LABS: TSH w/ Reflex to FT4 4.91 uIU/mL (0.47-4.68)
== END ==
PROVIDERS: Family Provider Family Medicine; PCP Family Medicine; Referring Provider Family Medicine; Visit Provider Family Medicine
DX: E11.9 Type 2 diabetes mellitus without complications (principal); E03.9 Hypothyroidism, unspecified; M79.7 Fibromyalgia; J45.909 Unspecified asthma, uncomplicated
CPT/HCPCS: 36415; 80048; 83036; 84439; 84443

== ENCOUNTER → 2025-02-09 09:04 | Outpatient (CLI) | payer MEDICARE, OTHER, SELFPAY ==
[2025-02-09 10:44] LABS: Alanine Aminotransferase 17 IU/L (<35); Albumin 4.2 g/dL (3.5-5.0); Alkaline Phosphatase 54 U/L (38-126); Aspartate Aminotransferase 29 IU/L (14-36); BUN Creatinine Ratio 23.2 (6-22); Bilirubin Total 1.3 mg/dL (0.2-1.3); Blood Urea Nitrogen 13 mg/dL (7-17); Calcium 9.5 mg/dL (8.4-10.2); Carbon Dioxide 28 mmol/L (22-32); Chloride 103 mmol/L (98-107); Cholesterol 181 mg/dL (140-199); Estimated Glomerular Filt Rate > 60 mL/min (>60); Globulin 2.1 g/dL (1.7-4.1); Glucose 96 mg/dL (80-110); HDL Cholesterol 81 mg/dL (40-60); HEMOLYSIS < 15 (0-50); LDL Cholesterol Calculated 75 mg/dL (<100); Potassium 4.6 mmol/L (3.4-5.1); Sodium 138 mmol/L (137-145); Total Protein 6.3 g/dL (6.3-8.2); Triglycerides 126 mg/dL (35-150)
[2025-02-09 10:51] LABS: Hemoglobin A1C% w Est Avg Glu 5.6 % (4.0-6.0)
[2025-02-09 11:14] LABS: TSH w/ Reflex to FT4 4.93 uIU/mL (0.47-4.68)
[2025-02-09 12:28] LABS: Free T4, Direct Thyroxine 1.46 ng/dL (0.78-2.19)
== END ==
PROVIDERS: Family Provider Family Medicine; PCP Family Medicine; Referring Provider Family Medicine; Visit Provider Family Medicine
DX: Z00.00 Encounter for general adult medical examination without abnormal findings (principal); E11.29 Type 2 diabetes mellitus with other diabetic kidney complication; R80.9 Proteinuria, unspecified; E78.5 Hyperlipidemia, unspecified; I10 Essential (primary) hypertension; E11.9 Type 2 diabetes mellitus without complications; E03.9 Hypothyroidism, unspecified
CPT/HCPCS: 36415; 80053; 80061; 83036; 84439; 84443